=== PATIENT | female | born 1945 | race Caucasian/White ===

== ENCOUNTER 2024-05-29 18:58 | Inpatient (IN) ==
[2024-05-29 19:34] LABS: Basophils # (auto) 0.05 K/uL (0.00-0.20); Basophils % (auto) 0.4 %; Eosinophils # (auto) 0.12 K/uL (0.00-0.50); Hematocrit (blood only) 45.6 % (37.0-47.0); Hemoglobin 15.2 g/dl (12.0-16.0); Immature Granulocytes # (auto) 0.16 K/uL (0.01-0.20); Immature Granulocytes % (auto) 1.4 %; Lymphocytes # (auto) 2.33 K/uL (1.20-3.40); Lymphocytes % (auto) 20.4 %; Mean Corpuscular Hemoglobin 31.1 pg (25.0-34.0); Mean Corpuscular Hgb Conc 33.3 g/dL (32.0-36.0); Mean Corpuscular Volume 93.3 fL (80.0-100.0); Mean Platelet Volume 9.5 fL (9.4-12.4); Monocytes # (auto) 0.87 K/uL (0.11-0.59); Monocytes % (auto) 7.6 %; Neutrophils % (auto) 69.2 %; Platelet Count 262 K/uL (130-400); RDW Coefficient of Variation 12.8 % (11.5-14.5); Red Blood Count 4.89 M/uL (4.20-5.40); White Blood Count 11.43 K/ul (4.8-10.8)
--- NOTE | 2024-05-29 19:40 | Emergency Department Note ---
Impression & Plan Reactive airway disease, Chest pressure ED Provider Note Provider: Luis Antonio Cardoza MD CHIEF COMPLAINT: Cough, shortness of breath, chest pressure HISTORY OF PRESENT ILLNESS: Patient is a 78-year-old female past medical history significant for hypothyroidism and asthma presenting here today from home. Patient states that her and family been sick with cough and cold since . Last week took 20 mg of daily prednisone that she had from old prescription to try to help with her breathing. States that this is continued with some productive cough. No significant nausea vomiting or diarrhea. Reports today around 3 PM was going to lay down and had some indigestion chest discomfort. No radiation to the arms neck jaw or abdomen. Little bit of back discomfort. Some continued chest congestion. Has had some chills no fevers but actually little bit of a low temperature of 94 at home. Patient states she went to urgent care in [place] and was told that she had a junky chest exam and wanted her to be seen so she came here for further evaluation. Did take an antiacid/Maalox earlier without much improvement of her indigestion symptoms. They have moderated since they began. No cardiac history is reported. Distant history of gastric bypass and SBO in the past but denies abdominal bloating at this time. PAST MEDICAL HISTORY: As noted above MEDICATIONS: Reviewed home medications SOCIAL HISTORY: Non-smoker PHYSICAL EXAM: GENERAL: alert and oriented in no acute distress on stretcher Head: normocephalic and atraumatic EYES: No injection, discharge or icterus. PERRL, EOMI. NECK: Trachea midline. Supple. ENT: Mucous membranes pink and moist. LUNGS: Airway patent. No retractions. Breath sounds diffuse expiratory wheeze HEART: Regular rate and rhythm. No chest wall tenderness ABDOMEN: Soft and non-tender, without guarding or rebound. SKIN: Acyanotic, warm, dry, without rashes EXTREMITIES: Without tenderness with 1+ lower extremity edema NEUROLOGICAL: No focal deficits. No aphasia. No facial droop or slurred speech. Ambulatory. EK bpm sinus rhythm with PAC. No significant acute ST segment elevation or depression with T wave flattening laterally. QTc 421. CONTINUOUS CARDIAC MONITORING: was ordered and showed a heart rate of 60s to 80s bpm in normal sinus rhythm 60 bpm sinus rhythm with PAC no acute ST segment elevation with nonspecific T wave flattening QTc 442. Patient's laboratory studies and imaging reviewed. Differential includes Cardiac ischemia, aortic dissection, pulmonary embolism, pneumothorax, pneumonia, bronchitis, URI, pericarditis, myocarditis, esophageal rupture, GERD, cholecystitis, pancreatitis, SBO, musculoskeletal, as well as other pathologies. IMPRESSION/MEDICAL DECISION MAKING: Patient well-appearing in no distress with significantly wheezy lung exam. Not hypoxic here. Not severely tachycardic or hypotensive. Reports some chills but no fever. Has been sick with URI symptoms over the last 2 weeks. Respiratory viral panel was sent. Given some steroids as well as DuoNeb to help with her significant wheezing. Given aspirin as well as Protonix and Pepcid to help protect the stomach as well as again the aspirin for any cardiac component given the indigestion symptoms are minimal at this time. Not having significant EKG changes. Lower suspicion for PE or dissection at this point. Doubt SBO or intra-abdominal blockage or perforation at this time. Do of concerns that she is suffering from possible URI plus or minus reactive airway exacerbation with possibly some anginal or chest pain equivalent. Troponin is sent returns normal here initially 5.1. Bilirubin normal and alkaline phosphatase very slight AST ALT elevation. Not significant tender in the right upper quadrant. Very slight leukocyte 11.4 likely reactive in the setting of her recent steroid usage lower suspicion for sepsis. No significant anemia or thrombocytopenia noted. No evidence of pancreatitis based on labs. Respiratory viral panel negative. On reassessment her breathing has opened up some but still fairly wheezy. Patient with some increase of central chest discomfort. She is already of a quality to it. Given a nitro and repeat EKG obtained without significant findings. Will repeat troponin. Will bring in for further cardiac evaluation as well as treatment of her underlying respiratory complaint. Again doubt this represents PE or dissection. Patient agreeable. Discussed with the hospitalist team. DIAGNOSIS: Chest pressure, reactive airway disease exacerbation/cough DISPOSITION: Hospitalist will evaluate Patient was agreeable with this plan. Past Med/Surg History Problem List (Updated 05/29/24 @ 20:14 by Luis Antonio Cardoza M.D.) Chest pressure (Acute) Reactive airway disease (Acute) Medical History (Updated 05/29/24 @ 20:14 by Luis Antonio Cardoza M.D.) Asthma Surgical History (Updated 08/02/18 @ 14:07 by Darron Lei) History of cardiac catheterization Family History (Updated 08/02/18 @ 14:07 by Darron Lei) Other Family history non-contributory Social History Smoking Status: Never smoker Preferred Language: Upper Sorbian Feels Safe at Home: Yes Allergies Allergies Allergy/AdvReac Type Severity Reaction Status Date / Time acetaminophen Allergy Mild Unverified 08/02/18 10:22 codeine Allergy Mild Unverified 08/02/18 10:22 oxycodone Allergy Mild Unverified 08/02/18 10:22 Penicillins Allergy Mild Unverified 08/02/18 10:22 tetanus toxoid, adsorbed Allergy Mild Unverified 08/02/18 10:22 tramadol Allergy Mild Unverified 08/02/18 10:22 SYMPATHOMIMADR Allergy Mild Uncoded 08/02/18 10:22 Home Meds Home Medications Medication Instructions Recorded Confirmed Calcium Citrate- Vitamind 1 tab PO BID 08/02/18 08/02/18 citalopram 20 mg tablet 20 mg PO DAILY 08/02/18 08/02/18 diphenhydramine HCl 25 mg tablet 25 mg PO Q6H PRN Itching 08/02/18 08/02/18 levothyroxine 88 mcg tablet 88 mcg PO QAM 08/02/18 08/02/18 Previous Rx's Medication Instructions Recorded albuterol sulfate 2.5 mg/3 mL 2.5 mg (3 mL) inhalation Q4 PRN 08/02/18 (0.083 %) solution for nebulization shortness of breath or wheezing #90 mL prednisone 10 mg tablet 10 mg PO DIRECTED #31 tabs 08/02/18 Results & Data (ED) Vital Signs Vital Signs - 24 hr 05/29/24 18:59 05/29/24 18:59 05/29/24 19:01 Temperature 36.6 C Temperature Source Temporal Artery Scan Pulse Rate 78 Pulse Rhythm Regular Pulse Strength Normal Respiratory Rate 18 Respiratory Effort / Characteristics Non-Labored Spontaneous Non-Labored Spontaneous Respiratory Depth Normal Normal Respiratory Pattern Regular Blood Pressure 139/76 Blood Pressure Mean 97 Blood Pressure Position Sitting Pulse Oximetry 96 Oxygen Delivery Method Room Air Room Air Sepsis Recent Fever Within 48 Hours No Sepsis New/Unexplained Change in Mental Status N/A Sepsis Action Taken by Nursing No Action Required 05/29/24 19:03 05/29/24 19:15 Temperature Temperature Source Pulse Rate 65 Pulse Rhythm Pulse Strength Respiratory Rate Respiratory Effort / Characteristics Respiratory Depth Respiratory Pattern Blood Pressure Blood Pressure Mean Blood Pressure Position Pulse Oximetry 98 Oxygen Delivery Method Room Air Sepsis Recent Fever Within 48 Hours Sepsis New/Unexplained Change in Mental Status Sepsis Action Taken by Nursing Laboratory Data 05/29/24 19:15 05/29/24 19:15 Lab Results 05/29/24 Range/Units 19:15 WBC 11.43 H (4.8-10.8) K/ul RBC 4.89 (4.20-5.40) M/uL Hgb 15.2 (12.0-16.0) g/dl Hct 45.6 (37.0-47.0) % MCV 93.3 (80.0-100.0) fL MCH 31.1 (25.0-34.0) pg MCHC 33.3 (32.0-36.0) g/dL RDW Std Deviation 44.0 (36.4-46.3) fL RDW Coeff of Clyde 12.8 (11.5-14.5) % Plt Count 262 (130-400) K/uL MPV 9.5 (9.4-12.4) fL Immature Gran % (Auto) 1.4 % Neut % (Auto) 69.2 % Lymph % (Auto) 20.4 % Greenlee % (Auto) 7.6 % Eos % (Auto) 1.0 % Baso % (Auto) 0.4 % Neut # (Auto) 7.90 H (1.40-6.50) K/uL Lymph # (Auto) 2.33 (1.20-3.40) K/uL Greenlee # (Auto) 0.87 H (0.11-0.59) K/uL Eos # (Auto) 0.12 (0.00-0.50) K/uL Baso # (Auto) 0.05 (0.00-0.20) K/uL Immature Gran # (Auto) 0.16 (0.01-0.20) K/uL PT 10.3 (9.0-12.0) Seconds INR 0.9 (0.9-1.1) APTT 23 (21-31) Seconds PTT Ratio 0.9 Sodium 135 L (136-145) mmol/L Potassium 4.6 (3.5-5.1) mmol/L Chloride 101 (98-107) mmol/L Carbon Dioxide 27 (21-32) mmol/L Anion Gap 7 (3-11) BUN 26 H (6-23) mg/dl Creatinine 1.20 (0.6-1.2) mg/dl Est Cr Clr Drug Dosing 46.8 ml/min eGFR 46.62 BUN/Creatinine Ratio 21.7 H (10-20) Glucose 100 H (70-99(Fasting)) mg/dl Calcium 9.7 (8.6-10.3) mg/dl Total Bilirubin 0.6 (0.2-1.0) mg/dl AST 132 H (13-39) U/L ALT 63 H (7-52) U/L Alkaline Phosphatase 88 (34-104) U/L Troponin I High Sens 5.1 (0-14) pg/ml Total Protein 7.6 (6.0-8.3) gm/dl Albumin 4.3 (3.4-5.0) gm/dl Globulin 3.3 (2.5-4.0) gm/dl Albumin/Globulin Ratio 1.3 (0.9-2) Lipase 48 (11-82) U/L Adenovirus (PCR) Not Detected (NotDetected) B. pertussis DNA (PCR) Not Detected (NotDetected) B.parapertussis DNA PCR Not Detected (NotDetected) C. pneumoniae DNA (PCR) Not Detected (NotDetected) Coronavirus OC43 (PCR) Not Detected (NotDetected) Coronavirus HKU1 (PCR) Not Detected (NotDetected) Coronavirus 229E (PCR) Not Detected (NotDetected) SARS-CoV-2 (PCR) Not Detected (NotDetected) Coronavirus NL63 (PCR) Not Detected (NotDetected) Human Metapneumovir PCR Not Detected (NotDetected) Influenza Type A (PCR) Not Detected (NotDetected) Influenza Type B (PCR) Not Detected (NotDetected) M. pneumoniae (PCR) Not Detected (NotDetected) Parainfluenza 1 (PCR) Not Detected (NotDetected) Parainfluenza 2 (PCR) Not Detected (NotDetected) Parainfluenza 3 (PCR) Not Detected (NotDetected) Parainfluenza 4 (PCR) Not Detected (NotDetected) RSV (PCR) Not Detected (NotDetected) Entero/Rhino (PCR) Not Detected (NotDetected) Administered Medications Discontinued Medications Albuterol (Albut/Ipratrop 3mg/0.5mg Neb 3 Ml Vial) 12 ml NEB ONE ONE; Protocol Stop: 05/29/24 19:28 Last Admin: 05/29/24 19:47 Dose: 12 ml Documented By: SHONDA Aspirin (Aspirin Chew 324 Mg) 324 mg PO NOW STA Stop: 05/29/24 19:29 Last Admin: 05/29/24 19:46 Dose: 324 mg Documented By: SHONDA Pantoprazole Sodium (Protonix) 40 mg in 10 mls @ 5 mls/min IV NOW ONE Stop: 05/29/24 19:28 Last Admin: 05/29/24 19:46 Dose: 5 mls/min Documented By: SHONDA Famotidine (Pepcid 20mg Iv Push) 20 mg in 5 mls @ 2.5 mls/min IV NOW STA Stop: 05/29/24 19:29 Last Admin: 05/29/24 19:46 Dose: 2.5 mls/min Documented By: SHONDA Methylprednisolone (Methylprednisolone 125 Mg/2 Ml Vial) 60 mg IV NOW STA Stop: 05/29/24 19:28 Last Admin: 05/29/24 19:46 Dose: 60 mg Documented By: SHONDA Nitroglycerin (Nitroglycerin Sl 0.4 Mg/Tab Tab) 0.4 mg SL NOW STA Stop: 05/29/24 20:19 Last Admin: 05/29/24 20:29 Dose: 0.4 mg Documented By: SHONDA Imaging Data Radiologist's Impression: Chest X-Ray 05/29/24 19:03 Exam(s): XR CXR 1 VIEW EXAM: XR Chest, 1 View CLINICAL HISTORY: Reason for exam: Chest pain, nonspecific. TECHNIQUE: Frontal view of the chest. COMPARISON: No relevant prior studies available. FINDINGS: Lungs: Mild soft tissue artifact over the mid to lower lungs. No focal infiltrate or consolidation is identified. Pleural space: Unremarkable. No pneumothorax. Heart: Unremarkable. No cardiomegaly. Mediastinum: Unremarkable. Normal mediastinal contour. Bones/joints: Mild degenerative changes in the lower thoracic spine. No acute fracture. Upper abdomen: There is no pneumoperitoneum under the diaphragm. IMPRESSION: Mild soft tissue artifact over the mid to lower lungs. No focal infiltrate or consolidation is identified. Electronically signed by: Luis Antonio Burger MD 05/29/24 20:27 PM Discharge Plan Visit Data Chief Complaint: Chest Pain Stated Complaint: CHEST PAIN, BACK PAIN, SOB, ASTHMA, ED Provider: Luis Antonio Cardoza Discharge Problem: Reactive airway disease, Chest pressure Patient Disposition: Being Evaluated by Hospitalist Forms Stand Alone Forms: [facility] Prescriptions Prescriptions: No Action levothyroxine 88 mcg tablet 88 mcg PO QAM citalopram 20 mg tablet 20 mg PO DAILY diphenhydramine HCl 25 mg Tablet 25 mg PO Q6H PRN (Reason: Itching) Calcium Citrate- Vitamind 1 tab PO BID Patient Comments: Calcium Citrate- Vitamin D 500-400 mg-unit Chew prednisone 10 mg tablet 10 mg PO DIRECTED Qty: 31 0RF Rx Instructions: 40 mg for 4 days, 30 mg for 3 days, 20 mg for 2 days, 10 mg for 2 days albuterol sulfate 2.5 mg /3 mL (0.083 %) solution for nebulization 2.5 mg INH Q4 PRN (Reason: shortness of breath or wheezing) Qty: 90 0RF Referrals Referrals: Chantel Girard DO [Primary Care Provider] - Discharge Problem: Reactive airway disease Qualifiers: Asthma severity: moderate Asthma complication type: with acute exacerbation
[2024-05-29] MEDS: ASPIRIN CHEW 324 MG PO STA (19:46)
[2024-05-29] MEDS: PANTOprazole 40 MG/10 ML SYR IV ONE (19:46)
[2024-05-29] MEDS: FAMOTIDINE 20MG IV PUSH 20 MG/5 ML SYR IV STA (19:46)
[2024-05-29] MEDS: methylPREDNISolone 125 MG/2 ML VIAL IV STA (19:46)
[2024-05-29] MEDS: ALBUT/IPRATROP 3MG/0.5MG NEB 3 ML VIAL NEB ONE (19:47)
[2024-05-29 19:49] LABS: Albumin Globulin Ratio 1.3 (0.9-2); Albumin Level 4.3 gm/dl (3.4-5.0); BUN Creatinine Ratio 21.7 (10-20); Bilirubin,Total 0.6 mg/dl (0.2-1.0); Calcium 9.7 mg/dl (8.6-10.3); Creatinine Clr Calc Pharmacy 46.8 ml/min; Globulin 3.3 gm/dl (2.5-4.0); Potassium 4.6 mmol/L (3.5-5.1); Total Protein 7.6 gm/dl (6.0-8.3)
[2024-05-29 19:55] LABS: Troponin I High Sensitivity 5.1 pg/ml (0-14)
[2024-05-29 20:05] LABS: INR 0.9 (0.9-1.1); Partial Thromboplastin Ratio 0.9; Partial Thromboplastin Time 23 Seconds (21-31); Prothrombin Time 10.3 Seconds (9.0-12.0)
[2024-05-29 20:19] LABS: Adenovirus PCR Not Detected (NotDetected); Bordetella parapertussis PCR Not Detected (NotDetected); Bordetella pertussis PCR Not Detected (NotDetected); Chlamydia pneumoniae PCR Not Detected (NotDetected); Coronavirus 229E PCR Not Detected (NotDetected); Coronavirus CoV-2 (COVID19)PCR Not Detected (NotDetected); Coronavirus HKU1 PCR Not Detected (NotDetected); Coronavirus NL63 PCR Not Detected (NotDetected); Coronavirus OC43PCR Not Detected (NotDetected); Human Metapneumovirus PCR Not Detected (NotDetected); Influenza A PCR Not Detected (NotDetected); Influenza B PCR Not Detected (NotDetected); Mycoplasma pneumoniae PCR Not Detected (NotDetected); Parainfluenza Virus 1 PCR Not Detected (NotDetected); Parainfluenza Virus 2 PCR Not Detected (NotDetected); Parainfluenza Virus 3 PCR Not Detected (NotDetected); Parainfluenza Virus 4 PCR Not Detected (NotDetected); Respiratory Syncytial VirusPCR Not Detected (NotDetected); Rhinovirus/Enterovirus PCR Not Detected (NotDetected)
--- NOTE | 2024-05-29 20:27 | XRay Report ---
Exam(s): XR CXR 1 VIEW EXAM: XR Chest, 1 View CLINICAL HISTORY: Reason for exam: Chest pain, nonspecific. TECHNIQUE: Frontal view of the chest. COMPARISON: No relevant prior studies available. FINDINGS: Lungs: Mild soft tissue artifact over the mid to lower lungs. No focal infiltrate or consolidation is identified. Pleural space: Unremarkable. No pneumothorax. Heart: Unremarkable. No cardiomegaly. Mediastinum: Unremarkable. Normal mediastinal contour. Bones/joints: Mild degenerative changes in the lower thoracic spine. No acute fracture. Upper abdomen: There is no pneumoperitoneum under the diaphragm. IMPRESSION: Mild soft tissue artifact over the mid to lower lungs. No focal infiltrate or consolidation is identified. Electronically signed by: Luis Antonio Burger MD 05/29/24 20:27 PM
[2024-05-29] MEDS: NITROGLYCERIN SL 0.4 MG/TAB TAB SL STA (20:29)
--- NOTE | 2024-05-29 21:15 | History & Physical Report ---
Date of Service May 29, 2024 Assessment & Plan (1) Exacerbation of asthma: Plan: History of asthma controlled with occasional nebs at home and also inhalers She has been complaining of shortness of breath with wheezing and cough since 14 May Tried self administered 5 days course of 20 mg prednisone and finished last Sunday without any improvement Continues to have wheezing and cough but no fever and no chills BioFire has been negative Started on intravenous Solu-Medrol, nebulized bronchodilator and Advair has been added to her regimen She will will not need any antibiotic if there is no evidence of acute bronchitis and no pneumonia Expected to improve with day or 2 Chest Pain Doubt Cardiac Received 4 baby Aspirin EKG x 2 and troponin have been negative Doubt any ACS but should be monitored and another set of troponin will be done First troponin was 5.1 and second troponin is pending and expected to be normal (2) Asthma: Plan: As above (3) Hypothyroidism: Plan: Continue supplement (4) PUD (peptic ulcer disease): Plan: Presented with epigastric pain/chest tightness and Chest pain-doubt any cardiac origin History of gastric bypass and the symptoms seems to be secondary to peptic ulcer disease No evidence of pancreatitis Started with Protonix 40 mg twice daily (5) H/O gastric bypass: Plan: No acute symptoms DVT prophylaxis Subcu heparin CODE STATUS Full History of Present Illness Chief Complaint: Progressive shortness of breath, chest pains/pressure with radiation to back since this afternoon Primary Care Provider: Chantel Girard DO She is a 78-year-old female with significant past medical history of asthma, hypothyroidism and remote history of gastric bypass apparently has been suffering from cough with occasional shortness of breath since . Her cough and wheezing was not getting any better and she took prednisone 20 mg daily for 5 days of her own without much improvement. She finished her prednisone last Sunday. Today after lunch she got some epigastric pain that went to the back and was not relieved with antacid. She did have some sweating but no radiation of pain, no palpitation, no shortness of breath more than usual from asthma and did not have any dizziness and/or numbness or tingling involving the extremities. She went to the urgent care in [place] and from there she was sent into the hospital for ongoing management. Allergies Allergy/AdvReac Type Severity Reaction Status Date / Time acetaminophen Allergy Mild Unverified 08/02/18 10:22 codeine Allergy Mild Unverified 08/02/18 10:22 oxycodone Allergy Mild Unverified 08/02/18 10:22 Penicillins Allergy Mild Unverified 08/02/18 10:22 tetanus toxoid, adsorbed Allergy Mild Unverified 08/02/18 10:22 tramadol Allergy Mild Unverified 08/02/18 10:22 SYMPATHOMIMADR Allergy Mild Uncoded 08/02/18 10:22 Home Medications Medication Instructions Recorded Confirmed Type Calcium Citrate- Vitamind 1 tab PO BID 08/02/18 08/02/18 History albuterol sulfate 2.5 mg/3 mL 2.5 mg (3 mL) inhalation Q4 PRN 08/02/18 Rx (0.083 %) solution for nebulization shortness of breath or wheezing #90 mL citalopram 20 mg tablet 20 mg PO DAILY 08/02/18 08/02/18 History diphenhydramine HCl 25 mg tablet 25 mg PO Q6H PRN Itching 08/02/18 08/02/18 History levothyroxine 88 mcg tablet 88 mcg PO QAM 08/02/18 08/02/18 History prednisone 10 mg tablet 10 mg PO DIRECTED #31 tabs 08/02/18 Rx Past Med/Surg History Problem List (Updated 05/29/24 @ 21:13 by Toña Adair MD) H/O gastric bypass PUD (peptic ulcer disease) Hypothyroidism Exacerbation of asthma Chest pressure (Acute) Reactive airway disease (Acute) Medical History (Updated 05/29/24 @ 21:13 by Toña Adair MD) Asthma Surgical History (Updated 05/29/24 @ 21:13 by Toña Adair MD) History of cardiac catheterization Family History (Updated 08/02/18 @ 14:07 by Darron Lei) Other Family history non-contributory Social History Smoking Status: Never smoker Preferred Language: Kiswahili Feels Safe at Home: Yes Review of Systems Review of Systems: All systems reviewed and are unremarkable except as noted below Physical Exam Physical Exam: Lying in bed with minimal shortness of breath Constitutional: well developed, well nourished and + ill appearing Eyes: PERRL, conjunctivae normal, anicteric sclerae ENMT: external ear and nose normal, oropharynx normal Neck: trachea midline, no thyromegaly Respiratory: no respiratory distress Auscultation: + diminished lung sounds and + wheezes (Occasional wheezing bilaterally) Cardiovascular: Rate/Rhythm: regular rate and regular rhythm; not tachycardic Heart Sounds: normal S1 and normal S2; no murmur Extremities: no edema Gastrointestinal (Abdomen): Inspection/Auscultation: normal bowel sounds; abdomen not distended Percussion/Palpation: + abdomen tender (Minimal tenderness in the epigastrium) and abdomen soft Musculoskeletal: No acute arthritis involving any of the joint Neurologic: normal touch/pain/proprioception and moves all extremities; no focal motor deficits Psychiatric: A+Ox3, euthymic affect Lymphatic: no cervical or axillary lymphadenopathy Results & Data Results & Data Vital Signs (Past 12 Hours) Vital Signs Temp Pulse Resp BP Pulse Ox O2 Del Method 05/29/24 19:15 65 05/29/24 19:03 98 Room Air 05/29/24 19:01 36.6 C 78 18 139/76 96 Room Air 05/29/24 18:59 Room Air Laboratory Results Short CBC 05/29/24 Range/Units 19:15 WBC 11.43 H (4.8-10.8) K/ul Hgb 15.2 (12.0-16.0) g/dl Hct 45.6 (37.0-47.0) % Plt Count 262 (130-400) K/uL BMP 05/29/24 19:15 Sodium 135 L Potassium 4.6 Chloride 101 Carbon Dioxide 27 BUN 26 H Creatinine 1.20 Glucose 100 H Calcium 9.7 Liver Function 05/29/24 Range/Units 19:15 Total Bilirubin 0.6 (0.2-1.0) mg/dl AST 132 H (13-39) U/L ALT 63 H (7-52) U/L Alkaline Phosphatase 88 (34-104) U/L Albumin 4.3 (3.4-5.0) gm/dl Medications Administered Current Inpatient Medications Heparin Sodium (Porcine) (Heparin Sod 5,000 Unit/0.5 Ml Vial) 5,000 units SQ Q12 DANGELO Stop: 06/29/24 08:59 Fluticasone/Salmeterol (Fluticasone/Salmeterol 250/50 (Advair) 14 Puff/1 Inhaler) 1 puffs INH BID DANGELO Stop: 06/28/24 20:59 Code Status & VTE Plan VTE Prophylaxis Plan VTE Prophylaxis will be ordered: Yes
[2024-05-29] MEDS ORDERED: methylPREDNISolone 125 MG/2 ML VIAL IV SCH (21:56)
[2024-05-29] MEDS: CALCIUM 600MG + VIT D 400 IU TAB PO SCH (23:21)
[2024-05-29] MEDS: ALBUTEROL 0.083% NEBU SOLN 3 ML VIAL INH SCH (23:36)
[2024-05-30 04:33] LABS: Basophils # (auto) 0.02 K/uL (0.00-0.20); Basophils % (auto) 0.2 %; Hematocrit (blood only) 43.1 % (37.0-47.0); Hemoglobin 14.4 g/dl (12.0-16.0); Immature Granulocytes # (auto) 0.16 K/uL (0.01-0.20); Immature Granulocytes % (auto) 1.7 %; Lymphocytes # (auto) 0.72 K/uL (1.20-3.40); Lymphocytes % (auto) 7.8 %; Mean Corpuscular Hemoglobin 31.4 pg (25.0-34.0); Mean Corpuscular Hgb Conc 33.4 g/dL (32.0-36.0); Mean Corpuscular Volume 94.1 fL (80.0-100.0); Mean Platelet Volume 9.9 fL (9.4-12.4); Monocytes # (auto) 0.15 K/uL (0.11-0.59); Monocytes % (auto) 1.6 %; Neutrophils # (auto) 8.24 K/uL (1.40-6.50); Neutrophils % (auto) 88.7 %; Platelet Count 249 K/uL (130-400); RDW Coefficient of Variation 12.7 % (11.5-14.5); RDW Standard Deviation 43.7 fL (36.4-46.3); Red Blood Count 4.58 M/uL (4.20-5.40); White Blood Count 9.29 K/ul (4.8-10.8)
[2024-05-30 04:50] LABS: BUN Creatinine Ratio 26.5 (10-20); Calcium 9.3 mg/dl (8.6-10.3); Magnesium 2.1 mg/dl (1.7-2.4); Potassium 4.8 mmol/L (3.5-5.1)
[2024-05-30] MEDS: PANTOprazole 40 MG TAB PO SCH (06:53)
[2024-05-30] MEDS: CITALOPRAM 20 MG TAB PO SCH (06:53)
[2024-05-30] MEDS: LEVOTHYROXINE SODIUM 88 MCG TABLET PO SCH (06:53)
[2024-05-30] MEDS: methylPREDNISolone 60 MG in SYRINGE 0 ML IV SCH (06:54)
--- OUTSIDE RECORDS SUMMARY | 2024-05-30 07:00 | External Medical Summary ---
Author Name Unknown Address Unknown Organization [id number]:[facility] [place] - [address] [place] [address] Laboratory Report Ordering Provider Test Date Status VAL STEPHENSON 05/22/2024 11:49:14 Final Observation Date Value Abnormality Reference (Units ) Status WBC, Total 05/22/2024 11:49:14 7.30 4.00-10.80 (K/uL) Final RBC 05/22/2024 11:49:14 4.42 3.85-5.15 (M/uL) Final Hemoglobin 05/22/2024 11:49:14 14.2 12.0-15.3 (g/dL) Final HCT 05/22/2024 11:49:14 43.4 36.0-45.2 (%) Final MCV 05/22/2024 11:49:14 98.2 81.5-97.5 (fL) Final MCH 05/22/2024 11:49:14 32.1 27.0-34.0 (pg) Final MCHC 05/22/2024 11:49:14 32.7 32.0-36.0 (g/dL) Final RDW 05/22/2024 11:49:14 13.0 11.5-15.5 (%) Final Platelets 05/22/2024 11:49:14 179 140-400 (K/uL) Final MPV 05/22/2024 11:49:14 10.3 6.6-11.1 (fL) Final Nucleated erythrocytes/100 leukocytes [Ratio] in Blood by Automated count 05/22/2024 11:49:14 0 <=0 (/100 WBCs) Final Performing Location [facility] [place] [facility] [address] [place] [place] [id number]
--- OUTSIDE RECORDS SUMMARY | 2024-05-30 07:00 | External Medical Summary | Summary of Care ---
Author Name Unknown Organization [facility] Address [address] [place] [address] Phone [phone] Care Team Providers Care Bell Clerk Name Role Phone Chantel Girard Primary Care Provider [phone] Reason for Visit * Reason Comments Outpatient Testing Encounter Details Date Type Department Care Team (Late st Contact Info) Description 05/22/2024 11:50 AM EST Laboratory Laboratory [address] [place] [phone] [place] [address] HTN, goal below 130/80; Acquired hypothyroidism; Intestinal postoperative nonabsorption Allergies Active Allergy Reactions Criticality Noted Date Comments Amoxicillin 09/26/2000 hives Gentamicin Sulfate Other (Please comment) High 12/29/2008 Itchy eyes Morphine And Codeine 11/10/1999 hydrocodone,itching Percocet 10/03/2002 Itch Tetanus Toxoid 09/25/2002 arm swollen,painful,fing ers numb Tramadol Hcl 09/26/2000 hives documented as of this encounter (statuses as of 05/22/2024) Medications Multiple Vitamins-Minerals (MULTIVITAMIN ADULT) CHEW Take by mouth. Act zaria Calcium Carbonate-Vitamin D 500-125 MG-UNIT Oral Tablet Take by mouth. Act zaria Tiotropium [place] Monohydrate 18 MCG Inhalation Capsule (Spiriva HandiHaler)Indicat ions:Asthma, moderate persistent INHALE THE CONTENTS OF 1 CAPSULE VIA HANDIHALER ONCE A DAY (DO NOT SWALLOW CAPSULE) 90 Capsule 1 01/28/2024 3:15 PM EDT 4 025 Active Fluticasone-Salmet mari 250-50 MCG/ACT Inhalation Aerosol Powder Breath Activated (Advair Diskus) INHALE ONE PUFF BY MOUTH EVERY MORNING & ONE PUFF BEFORE BEDTIME 180 Each 1 02/21/2024 7:40 AM EDT 4 Active Alendronate Sodium 70 MG Oral Tablet (Fosamax) Take 1 Tablet by mouth once a week. with 8 oz. water 30 minutes before first meal of the day. Remain upright for 30 min after taking tablet. 12 Tablet 3 04/08/2024 9:10 AM EST 4 Active Citalopram Hydrobromide 20 MG Oral Tablet (CeleXA)Indication s:Depression with anxiety Take 1 Tablet by mouth in the morning. 100 Tablet 3 05/20/2024 9:26 AM EST 4 Active Levothyroxine Sodium 88 MCG Oral Tablet (Levoxyl)Indicatio ns:Acquired hypothyroidism Take 1 Tablet by mouth daily first thing in the morning. 100 Tablet 3 05/20/2024 9:26 AM EST 4 Active Losartan Potassium 50 MG Oral Tablet (Cozaar)Indication s:HTN, goal below 130/80 Take 1 Tablet by mouth in the morning. 100 Tablet 3 04/02/2024 9:15 AM EST 4 Active Spironolactone 25 MG Oral Tablet (Aldactone) Take 1 Tablet by mouth in the morning. 100 Tablet 3 05/19/2024 3:14 PM EST 4 Active Diclofenac Sodium 1 % External Gel (Voltaren)Indicati ons:Pain in both feet,Right wrist pain Apply topically to affected area 2 times a day. Apply to right wrist and feet twice daily as needed. 100 g 1 4 Active Zoster Vac Recomb Adjuvanted 50 MCG/0.5ML Intramuscular Suspension Reconstituted (Shingrix) Inject 0.5 mL into a large muscle in 2 months. Do not start before June 11, 2024. 1 Each Active Hospital, Clinic, or Other Facility Administered Medication Ordered Dose Route Frequency Start Date End Date Status albuterol sulfate (PROVENTIL) (2.5 MG/3ML) 0.083% inhalation solution 2.5 mgIndications:COPD, moderate (HCC) 2.5 mg NEBULIZER Q4H PRN 04/19/2017 Active vitamin b-12 (Cyanocobalamin) inj 1,000 mcgIndications:S/P gastric bypass 1000 mcg IM [id number] 05/11/2022 02/12/2025 Active documented as of this encounter (statuses as of 05/22/2024) Active Problems Problem Noted Date Diagnosed Date Major depressive disorder, s darren episode, in full remission 04/15/2024 Primary osteoarthritis of both knees 09/05/2023 Osteoporosis 06/22/2023 Overview (06/22/2023): Patient did start fosamax recently HTN, goal below 130/80 08/17/2022 Obstructive sleep apnea of adult 08/15/2020 History of adenomatous polyp of colon 08/02/2018 History of paroxysmal atrial tachycardia 018 Arthritis of right acromioclavicular joint 04/11 S/P gastric bypass 04/11/2017 Depression with anxiety 03/04/2015 Asthma, moderate persistent 05/27/2013 Umbilical hernia 10/22/2012 Vitamin B deficiency 12/29/2008 Intestinal postoperative nonabsorption 7 BLACKMAN RESEARCH OTHER*[id number] 10/29/2006 Acquired hypothyroidism 01/19/2004 GENERAL OSTEOARTHROSIS Vitamin D deficiency Ventral hernia without obstruction or gangrene documented as of this encounter (statuses as of 05/22/2024) Resolved Problems Problem Noted Date Diagnosed Date Resolved Date Migraine with aura and witho ut status migrainosus, not intractable 08/17/2022 09/05/2023 Food insecurity 07/03/2022 03/01/2023 Overview: Per [facility] Protocol Food insecurity 12/27/2020 02/01/2021 Overview: Per [facility] Protocol Abnormal CT of the chest 08/15/2020 Pleural effusion 08/15/2020 02/17/2022 SVT (supraventricular tachycardia) 05/05/2019 02/17/2022 Obesity, morbid (more than 1 00 lbs over ideal weight or BMI > 40) 03/26/2019 06/05/2019 BMI 40.0-44.9, adult 03/26/2019 022 Primary osteoarthritis of right knee 10/09/2018 09/05/2023 Asthma in remission 10/09/2017 08/10/19 19 Coronary artery disease invo lving [place] coronary artery of [place] heart without angina pectoris 10/09/2017 08/09/2018 CKD (chronic kidney disease), stage III 08/15/2017 08/31/2017 Overview (08/22/2017): GFR 52.2 Dyslipidemia, goal to be determined 12/20/2016 04/11/2017 Hyperlipidemia LDL goal <100 12/20/2016 02/20/2023 Essential hypertension with goal blood pressure less than 140/90 03/13/2016 04/11/2017 Allergic rhinitis due to pollen 09/09/2015 04/11/2017 Severe obesity with body mas s index (BMI) of 35.0 to 39.9 with serious comorbidity 03/04/2015 Overview (03/06/2018): ICD-10 update of inactive diagnosis Asthma, moderate persistent 05/27/2013 04/11/2017 Muscle cramp, nocturnal 12/24/201203/22 Small bowel obstruction 03/06/201210/2011 Thoracic degenerative disc disease 02/29/2012 04/11/2017 Major depressive disorder 07/11/2011 Overview (03/13/2017): ICD-10 update of inactive term Leg cramps, sleep related 11/01/2010 COPD, MODERATE 06/08/2010 10/09/2017 Overview (05/18/2011): Per COPD Protocol #24. COPD W BRONCHITIS,EMPHYSEMATOS Last PFT - 2010-05-27 Degeneration of lumbosacral intervertebral disc 06/29/2009 04/11/2017 HTN, goal below 140/90 03/26/200903/13 Overview (03/26/2009): Modified per HTN Taxonomy. Gouty arthropathy 03/04/2009 04/11/2017 Overview (02/20/2022): ICD-9 Code Update ICD-10 update of inactive term Type 2 diabetes mellitus wit h hemoglobin A1c goal of less than 7.0% 01/28/2008 06/30/2008 Overview (09/14/2015): ICD-10 update of inactive term CKD (chronic kidney disease), stage II 08/26/2007 03/26/2019 Overview (08/26/2007): Added per CKD clinical protocol 1 Hypothyroidism 04/26/2007 2007 Localized, primary osteoarth ritis of ankle or foot 11/29/2006 09/04/2007 Paroxysmal atrial tachycardia 11/15/2005 10/09/2017 ADVANCE DIRECTIVE INFORMATION 05/17/2005 04/11/2017 Overview (05/17/2005): No, Advance Directive brochure given to patient at prior appointment. Slow transit constipation 05/17/2005 Morbid obesity, BMI not known 08/12/2004 01/28/2008 BLACKMAN (nonalcoholic steatohepatitis) 02/29/2004 04/25/2018 Major depressive disorder, r ecurrent severe without psychotic features 02/29/2004 07/11/2011 Mixed dyslipidemia 01/19/2004 9 12/09/2003 10/09/2017 Carpal tunnel syndrome 03/03/200304/11 Cervical spondylosis 09/25/2002 008 CERVICAL DISC DEGEN 09/25/2002 04/11/20 17 Gouty arthropathy 10/02/2001 03/04/2009 Overview (08/24/2015): ICD-9 Code Update ICD-10 update of inactive term Thoracic and lumbosacral neuritis 12/04/2000 2007 Goiter 04/11/2017 EXT ASTHMA W-O STAT ASTH 10/2013 BENIGN HYPERTENSION 03/26/20 09 Overview (03/26/2009): Modified per HTN Taxonomy. Peptic ulcer 2007 GOUT W MANIFESTATION NEC ABN LIVER FUNCTION STUDY BURSITIS NEC 2007 ABN BLOOD CHEMISTRY NEC 07/20 DM type 2, not at goal 01/27 Metabolic syndrome 9 Adenomatous polyp of colon 0 08/02/2018 Chronic bronchitis, obstructive 05/18/2011 Overview (06/08/2010): COPD W BRONCHITIS,EMPHYSEMATOS Tubular adenoma of colon Benign hypertension with CKD (chronic kidney disease) stage III 04/25/2018 documented as of this encounter (statuses as of 05/22/2024) Immunizations Name Administration Dates Next Due COVID-19 mRNA, LNP-s, No Pre serve, 2-Dose Series (Moderna) 11/03/2020,10/05/2020 COVID-19, mRNA, LNP-s, PF, B ooster, 100mcg/0.5mg (Moderna) 06/14/2021 Covid-19, Mrna, Lnp-s, Pf, B ivalent, 30 Mcg, IM, 12 yrs and above (EmboMedics) 05/16/2022 Pneumococcal Conjugate Vacc, 13 Valent (Prevnar) 08/19/2014 Pneumococcal Polysaccharide PPV23 (Pneumovax) 02/07/2012,02/14/2006 RSV Vac., Recomb, Adjuvant, PF,0.5 Ml (Arexvy) 04/11/2024 Season Influenza, Quad, PF, Adjuvanted, 65+ Yrs, IM (FLUAD) 02/02/2020 Seasonal Influenza Vac., MDV , IM, 0.5 mL (Fluzone) 03/04/2013,02/07/2012,02/06/2011,03/21,02/24/2009,04/02/2008,04/02/2007 ,05/16/2006 Seasonal Influenza Virus Vac cine, Unspecified Formulation 01/21/2020 Seasonal Influenza, High Dos e, Trivalent, PF, IM (Fluzone HD) 02/14/2024 Seasonal Influenza, PF, 6 M & above, IM , (FluLaval or Fluzone) 02/15/2018,03/02/2017 Seasonal Influenza, Quadriva lent Hd (Fluzone Hd) 02/20/2023,02/17/2022,02/01/2021 Seasonal Influenza, Quadriva lent, No Preserve, IM 02/09/2016,03/04/2015 Seasonal Influenza, Trivalen t, Adjuvanted, 65+ YRS, PF, (Fluad) 02/21/2019 TD - Tetanus/Diptheria (ADULT) 09/25/2002 Zoster Vaccine Recombinant (Shingrix) 04/11/2024 documented as of this encounter Social History Tobacco Use Types Packs/Day Years Used Date Smoking Tobacco: Former Cigarettes 0.3 0.5 0 11/1968 - 1969 Smokeless Tobacco: Never Comments:No regular use trie d as a kid Alcohol Use Standard Drinks/Week Comments Not Currently 0 (1 standard drink = 0.6 oz pure alcohol) quit 1988 - years of abuse RARE USE AT THIS TIME PHQ-2 Answer Date Recorded PHQ Adult Total Score 0 06/21/2023 Hunger Vital Sign Answer Date Recorded Within the past 12 months, y ou worried that your food would run out before you got the money to buy more. Never true 08/22/19 24 Within the past 12 months, t he food you bought just didn't last and you didn't have money to get more. Never true 08/22/2023 Childcare Answer Date Recorded Do you feel overwhelmed with taking care of a child, family member or friend? No 08/22/2023 Does your family need help f inding childcare? (Household - for ages 0-17 years) Not on file 08/22/2023 Clothing Answer Date Recorded Have you been unable to get clothing when it was really needed? No 08/22/2023 Is your family able to get c lothes or diapers when needed? (Household - for ages 0-17 years) Not on file 08/22/2023 Personal Safety Answer Date Recorded Do you feel unsafe or have concerns for your saf ety? No 08/22/2023 Do you have concerns for you r family's safety? (Household - for ages 0-17 years) Not on file 08/22/2023 Utilities Answer Date Recorded Do you have trouble paying y our heating, water, or electric bill? No 08/22/2023 Is your family able to pay t he heat, water, or electric bill? (Household - for ages 0-17 years) Not on file 08/22/2023 Does your family have access to good internet? (Household - for ages 0-17 years) Not on file 08/22/2023 Employment Status Answer Date Recorded Are you unemployed or without regular income? No 08/22/2023 Does the household have a re gular source of income? (Household - for ages 0-17 years) Not on file 08/22/2023 Social Connections Answer Date Recorded How often do you feel lonely or isolated from th ose around you? Never 08/22/2023 Financial Resource Strain Answer Date R ecorded Do you have any trouble payi ng for your medications, or do you think you might in the future? No 08/22/2023 Does your family have troubl e paying for medicine? (Household - for ages 0-17 years) Not on file 08/22/2023 Transportation Needs Answer Date Record ed READ ONLY Do you have troubl e getting a ride to medical visits or work? Never True 08/22/2023 Does your family have a hard time getting a ride to doctors visits? (Household - for ages 0-17 years) Not on file 08/22/2023 Has lack of transportation k ept you from medical appointments, meetings, work, or from getting things needed for daily living? Check all that apply. (Adult - for ages 18 years and over) Not on file 08/22/2023 Do you (or your family) have trouble finding or paying for a ride (transportation)? (Household - for ages 0-17 years) Not on file 08/22/2023 Housing Stability Answer Date Recorded Do you currently live in a s helter or have no steady place to sleep at night? No 08/22/2023 READ ONLY Do you think you a re at risk of becoming homeless? No 08/22/2023 Does your family worry about paying for your home or becoming homeless? (Household - for ages 0-17 years) Not on file 0 08/22/2023 Are you homeless or worried that you might be in the future? (Adult - for ages 18 years and over) Not on file 04/03/202 4 Are you (or your family) puneet eless or worried that you might be in the future? (Household - for ages 0-17 years) Not on file Food Insecurity Answer Date Recorded Do you need food for this week? No 08/22/2023 Are you able to get enough f ood for your family? (Household - for ages 0-17 years) Not on file 08/22/2023 Does your family need food t his week? (Household - for ages 0-17 years) Not on file 08/22/2023 Do you always have enough fo od for your family? 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 Not on file Not on file documented as of this encounter Plan of Treatment Upcoming Encounters Date Type Department Care Team (Late st Contact Info) Description 06/24/2024 1:00 PM EST Nurse Only Ancillary [address] [place] [id number] [place], Nurse Annual Wellness [address] [place] [address] [place] [id number] 10/14/2024 1:00 PM EDT Office Visit Family [address] [place] [phone] Toribio Tovar CRNP [address] [place] [address] [place] [phone] 04/15/2025 1:50 PM EST [address] [phone] Chantel Girard [address] [place] [address] Pending Results Name Type Priority Associated Diagnoses Date /Time BASIC METABOLIC PANEL Lab Routine HTN, goal below 130/80 05/22/2024 11:49 AM EST TSH Lab Routine Acquired hypothyroidism 05/22/2024 11:49 AM EST CBC WITH WBC DIFFERENTIAL Lab Routine Intestinal postoperative nonabsorption 05/22/2024 11:49 AM EST CBC Lab Routine Intestinal postoperative nonabsorption 05/22/2024 11:49 AM EST DIFFERENTIAL, AUTOMATED Lab Routine Intestinal postoperative nonabsorption 05/22/2024 11:49 AM EST Health Maintenance Due Date Last Done Comments COVID-19 Vaccine ( season) 2024 05/16/2022, 06/14/2021, 11/03/2020, Additional history exists GFR 01/30/2024 01/29/2023, 02/18, 02/17/2022, Additional history exists TSH 02/21/2024 02/20/2023, 01/21, 11/30/2020, Additional history exists Zoster Vaccines (2 of 2) 06/06/2024 04/11/2024 Depression Monitoring 06/21/2024 06/21/2023 Adult Wellness Visit 06/22/2024 06/22/2023, 06/21/19 23 Albumin/Creatinine Ratio 10/09/2026 024, 11/30/2020, 11/28/2007, Additional history exists Fecal Occult Blood Test Discontinued 08/11/2009 Pneumococcal Vaccine: 50+ Years Completed 08/19/2014, 02/07/2012, 02/14/2006 Colonoscopy Discontinued 04/26/2021, 11/2020, 04/19/2016, Additional history exists Colorectal Cancer Screening Discontinued RETIRED - COLONOSCOPY-EVERY 5 YRS AGES 18-100 Discontinued 04/26/2021, 04/26/2021, 04/19/2016, Additional history exists Influenza Vaccine (FLU shot) Completed 02/14/2024, 02/20/2023, 02/17/2022, Additional history exists Cologuard Discontinued HPV (Gardasil) Vaccine Aged Out No lo nger eligible based on patient's age to complete this topic Hepatitis B Vaccine Aged Out No longe r eligible based on patient's age to complete this topic MENINGOCOCCAL (MENACTRA/MENVEO) Aged Out No longer eligible based on patient's age to complete this topic Sigmoidoscopy Discontinued documented as of this encounter Medical Devices Implanted Type Area Meeting Specialist Device Identifier Shelf Expiration Date Model / Serial / Lot Clip Quick 2.8mm 230cm - [id number] Implanted:Qty: 1 on 04/26/2021 by Alexx Avalos MD at [facility] [facility] 09/18/2023 [id number] / [id number] documented as of this encounter Visit Diagnoses Diagnosis HTN, goal below 130/80 Unspecified essential hypertension Acquired hypothyroidism Unspecified hypothyroidism Intestinal postoperative nonabsorption Other and unspecified postsurgical nonabsorption documented in this encounter Advance Directives * Full Code (Latest Code Status on File) Date Activated Date Inactivated Comments 02/17/2012 9:41 PM 02/24/2012 7:54 PM This order r eflects the patients wishes and were consensually agreed upon. Question Answer Comments Discussion of Advance Directives occurred with: Patient Does the patient have a Living Will? No Does the patient have Health Care Power of Attor rodri? No * Full Code Date Activated Date Inactivated Comments 04/25/2007 8:13 PM 04/27/2007 6:02 PM * Full Code Date Activated Date Inactivated Comments 04/25/2007 8:09 AM 04/25/2007 8:13 PM Care Teams Bell Clerk Relationship Specialty Start Date End Date Chantel Girard DO [address] [place] [address] [place] [id number] PCP - General Internal Medicine 04/08/21 documented as of this encounter
--- OUTSIDE RECORDS SUMMARY | 2024-05-30 07:00 | External Medical Summary ---
Author Name Unknown Address Unknown Organization [id number]:[facility] – [place] - [address] [place] [address] Laboratory Report Ordering Provider Test Date Status VAL STEPHENSON 05/22/2024 11:49:14 Final Observation Date Value Abnormality Reference (Units ) Status BUN 05/22/2024 11:49:14 19 6-20 (mg/dL) Final Creatinine 05/22/2024 11:49:14 0.8 0.5-1.0 (mg/dL) Final Glomerular filtration rate/1.73 sq M.predicted [Volume Rate/Area] in Serum, Plasma or Blood by Creatinine-based formula (CKD-EPI) 05/22/2024 11:49:14 79 >=60 (mL/min) Final eGFR is calculated based on the CKD-EPI 2020 equation. Sodium 05/22/2024 11:49:14 136 135-146 (m mol/L) Final Potassium 05/22/2024 11:49:14 4.9 3.5-5.1 (m mol/L) Final Cl 05/22/2024 11:49:14 100 98-107 (mm ol/L) Final CO2 05/22/2024 11:49:14 23 22-32 (mmo l/L) Final Anion gap 05/22/2024 11:49:14 13 7-15 (mmol /L) Final Glucose 05/22/2024 11:49:14 92 70-120 (mg /dL) Final Calcium 05/22/2024 11:49:14 9.2 8.4-10.2 ( mg/dL) Final Performing Location [facility] – [place] - [address] [place] [address]
--- OUTSIDE RECORDS SUMMARY | 2024-05-30 07:00 | External Medical Summary | Summary of Care ---
Author Name Unknown Organization [facility] Address [address] [place] [address] Phone [phone] Care Team Providers Care Taker Off Hemp Fiber Name Role Phone Chantel Girard Primary Care Provider [phone] Reason for Visit * Reason Comments EMG Encounter Details Date Type Department Care Team (Late st Contact Info) Description 05/22/2024 11:20 AM EST NeuroDiagnostic Study Neurophysiology [facility] [address] [facility] [place] [address] Kolby Gardner DO [address] [place] [address] Arrived Allergies Active Allergy Reactions Criticality Noted Date [...] Tablet Take by mouth. Act zaria Tiotropium [place] Monohydrate 18 MCG Inhalation Capsule (Spiriva HandiHaler)Indicat [...] start before June 11, 2024. 1 Each 5 Active Hospital, Clinic, or Other Facility Administered Medication Ordered Dose Route Frequency Start Date End Date Status albuterol sulfate (PROVENTIL) (2.5 MG/3ML) 0.083% inhalation solution 2.5 mgIndications:COPD, moderate (HCC) 2.5 mg NEBULIZER Q4H PRN 04/19/2017 Active vitamin b-12 (Cyanocobalamin) inj 1,000 mcgIndications:S/P gastric bypass 1000 mcg IM [id number] 05/11/2022 02/12/2025 Active documented as of this [...] 12/29/2008 Intestinal postoperative nonabsorption 7 BLACKMAN RESEARCH OTHER*[id number] 10/29/2006 Acquired hypothyroidism 01/19/2004 GENERAL OSTEOARTHROSIS Vitamin [...] 08/10/19 19 Coronary artery disease invo lving grindstone coronary artery of grindstone heart without angina pectoris 10/09/2017 08/09/2018 CKD [...] features 02/29/2004 07/11/2011 Mixed dyslipidemia 01/19/2004 9 Rhinitis 12/09/2003 10/09/2017 Carpal tunnel syndrome 03/03/200304/11 Cervical [...] 30 Mcg, IM, 12 yrs and above (C[employer]) 05/16/2022 Pneumococcal Conjugate Vacc, 13 Valent (Prevnar) [...] 18 years and over) Not on file Are you (or your family) puneet eless [...] file Not on file 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 History and Physical examination: A 78-year-old female with numbness and tingling in both hands. Sensation is intact to light touch. EMG/NCS performed for evaluation of median neuropathy. Nerve Conduction Studies Examination Findings: Nerve conduction studies were performed in the bilateral upper extremities. The bilateral median sensory nerve study showed prolonged peak latencies, normal amplitudes, and slow conduction velocities. The ulnar and radial sensory nerve study showed normal peak latencies, normal amplitudes, and normal conduction velocity. The median and ulnar motor nerve study showed normal distal latencies, normal amplitudes, and normal conduction velocity. Please see the attached document for raw data or the scanned document in EPIC. Reference values are from the [facility] normative data guidelines that are attached at the end ofthis document. Electromyography Examination Findings: Needle examination was performed with a disposable concentric needle electrode in selected muscles of the right upper extremity, as recorded in the tables. No abnormal spontaenous activity was seen. The motor unit action potentials in the muscles tested demonstrated normal size, duration, and recruitment. Please see the attached document for raw data or the scanned document in EPIC. The study was done with a concentric needle examination. Kolby Gardner DO documented in this encounter Plan of Treatment Upcoming Encounters Date Type Department Care Team (Late st Contact Info) Description 06/24/2024 1:00 PM EST Nurse Only Ancillary [address] [place] [address] [place], Nurse Annual Wellness [address] [place] [address] [place] [address] 10/14/2024 1:00 PM EDT Office Visit [address] [place] [phone] Toribio Tovar CRNP [address] [place] [address] [place] [id number] 04/15/2025 1:50 PM EST Office Visit [address] [place] [phone] Chantel Girard DO [address] [place] [address] [place] [address] Health Maintenance Due Date Last Done Comments [...] this encounter Medical Devices Implanted Type Area Certified Adapted Physical Educator Device Identifier Shelf Expiration Date Model / Serial / Lot Clip Quick 2.8mm 230cm - [id number] Implanted:Qty: 1 on 04/26/2021 by Alexx Avalos MD at ENDOSCOPY [facility] [employer] [facility] 09/18/2023 [id number] / / [id number] documented as of this encounter Visit Diagnoses Diagnosis Numbness and tingling in both hands [R20.0, R20.2]- Primary documented in this encounter Advance Directives * [...] 8:09 AM 04/25/2007 8:13 PM Care Teams Taker Off Hemp Fiber Relationship Specialty Start Date End Date Chantel Girard DO [address] [place] [address] [place] [phone] PCP - General Internal Medicine 04/08/21 documented as of this encounter
--- OUTSIDE RECORDS SUMMARY | 2024-05-30 07:00 | External Medical Summary ---
Author Name Unknown Address Unknown Organization K01:LABORATORY [facility] [place] - [address] [place] [address] Laboratory Report Ordering Provider Test Date Status SACHINNEAL 05/22/2024 11:49:14 Final Observation Date Value Abnormality Reference (Units ) Status TSH 05/22/2024 11:49:14 4.76 Above high normal 0. 27-4.20 (uIU/mL) Final Performing Location LABORATORY C - [address] [place] [address]
--- OUTSIDE RECORDS SUMMARY | 2024-05-30 07:00 | External Medical Summary ---
Author Name Unknown Address Unknown Organization K01:[place] [place] [facility] [place] [address] [facility] [place] [address] Laboratory Report Ordering Provider Test Date Status VAL STEPHENSON 05/22/2024 11:49:14 Final Observation Date Value Abnormality Reference (Units ) Status SYNC LEUKOCYTES IN BLOOD BY AUTOMATED COUNT 05/22/2024 11:49:14 7.30 4.00-10.80 (K/uL) Final Segs 05/22/2024 11:49:14 70.3 40.0-75.0 (%) Final Lymphs % 05/22/2024 11:49:14 17.5 Below low normal 18.0-42.0 (%) Final Monos 05/22/2024 11:49:14 9.0 1.0-11.0 (%) Final Eosinophils 05/22/2024 11:49:14 1.8 0.0-6.0 (%) Final Basos 05/22/2024 11:49:14 0.7 0.0-2.0 (%) Final Immature Granulocyte, Percent 05/22/2024 11:49:14 0.7 0.0-2.0 (%) Final Absolute Segs 05/22/2024 11:49:14 5.13 1.80-7.70 (K/uL) Final Lymphs, absolute 05/22/2024 11:49:14 1.28 1.00-4.80 (K/ul) Final Monos, Abs 05/22/2024 11:49:14 0.66 0.00-1.10 (K/uL) Final Eos, Abs 05/22/2024 11:49:14 0.13 0.00-0.70 (K/uL) Final Basos, Abs 05/22/2024 11:49:14 0.05 0.00-0.20 (K/uL) Final Immature Granulocytes, Number 05/22/2024 11:49:14 0.05 0.00-0.20 (K/uL) Final Performing Location [place] [facility] [place] [address] [facility] [address]
--- OUTSIDE RECORDS SUMMARY | 2024-05-30 07:01 | External Medical Summary | Summary of Care ---
Author Name Unknown Organization [facility] Address [address] [place] [address] Phone [phone] Care Team Providers Care Director Of Strategic Sourcing Name Role Phone Chantel Girard Primary Care Provider [phone] Encounter Details Date Type Department Care Team (Late st Contact Info) Description 04/08/2024 Patient Reported Data Patient Survey Ortho [facility] Allergies Active Allergy Reactions Criticality Noted Date Comments Amoxicillin 09/26/2000 hives Gentamicin Sulfate Other (Please comment) High 12/29/2008 Itchy eyes Morphine And Codeine 11/10/1999 hydrocodone,itching Percocet 10/03/2002 Itch Tetanus Toxoid 09/25/2002 arm swollen,painful,fing ers numb Tramadol Hcl 09/26/2000 hives documented as of this encounter (statuses as of 04/08/2024) Medications Multiple Vitamins-Minerals (MULTIVITAMIN ADULT) CHEW Take by mouth. Act zaria Calcium Carbonate-Vitamin D 500-125 MG-UNIT Oral Tablet Take by mouth. Act zaria Tiotropium [place] Monohydrate 18 MCG Inhalation Capsule (Spiriva HandiHaler)Indicat [...] mouth in the morning. 100 Tablet 3 4 Active Levothyroxine Sodium 88 MCG Oral Tablet (Levoxyl)Indicatio ns:Acquired hypothyroidism Take 1 Tablet by mouth daily first thing in the morning. 100 Tablet 3 4 Active Losartan Potassium 50 MG Oral Tablet (Cozaar)Indication s:HTN, goal below 130/80 Take 1 Tablet by mouth in the morning. 100 Tablet 3 04/02/2024 9:15 AM EST 4 Active Spironolactone 25 MG Oral Tablet (Aldactone) Take 1 Tablet by mouth in the morning. 100 Tablet 3 4 Active Diclofenac Sodium 1 % External Gel (Voltaren)Indicati ons:Pain in both feet,Right wrist pain Apply topically to affected area 2 times a day. Apply to right wrist and feet twice daily as needed. 100 g 1 4 Active Zoster Vac Recomb Adjuvanted 50 MCG/0.5ML Intramuscular Suspension Reconstituted (Shingrix) Inject 0.5 mL into a large muscle now and repeat dose in 60 to 180 days 1 Each 1 4 Active Hospital, Clinic, or Other Facility Administered Medication Ordered Dose Route Frequency Start Date End Date Status albuterol sulfate (PROVENTIL) (2.5 MG/3ML) 0.083% inhalation solution 2.5 mgIndications:COPD, moderate (HCC) 2.5 mg NEBULIZER Q4H PRN 04/19/2017 Active vitamin b-12 (Cyanocobalamin) inj 1,000 mcgIndications:S/P gastric bypass 1000 mcg IM [id number] 05/11/2022 02/12/2025 Active documented as of this encounter (statuses as of 04/08/2024) Active Problems Problem Noted Date Diagnosed Date Primary osteoarthritis of both knees 09/05/2023 Osteoporosis [...] 12/29/2008 Intestinal postoperative nonabsorption 7 BLACKMAN RESEARCH OTHER*[id number] 10/29/2006 Acquired hypothyroidism 01/19/2004 GENERAL OSTEOARTHROSIS Vitamin D deficiency Ventral hernia without obstruction or gangrene documented as of this encounter (statuses as of 04/08/2024) Resolved Problems Problem Noted Date Diagnosed Date [...] 08/10/19 19 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 pectoris 10/09/2017 08/09/2018 CKD [...] as of this encounter (statuses as of 04/08/2024) Immunizations Name Administration Dates Next Due COVID-19 mRNA, LNP-s, No Pre serve, 2-Dose Series (Moderna) 11/03/2020,10/05/2020 COVID-19, mRNA, LNP-s, PF, B ooster, 100mcg/0.5mg (Moderna) 06/14/2021 Covid-19, Mrna, Lnp-s, Pf, B ivalent, 30 Mcg, IM, 12 yrs and above (Gyst) 05/16/2022 Pneumococcal Conjugate Vacc, 13 Valent (Prevnar) 08/19/2014 Pneumococcal Polysaccharide PPV23 (Pneumovax) 02/07/2012,02/14/2006 Season Influenza, Quad, PF, Adjuvanted, 65+ Yrs, [...] (Fluad) 02/21/2019 TD - Tetanus/Diptheria (ADULT) 09/25/2002 documented as of this encounter Social History Tobacco Use Types Packs/Day Years Used Date Smoking Tobacco: Former Cigarettes 0.3 0.5 0 11/1968 - 1969 Smokeless Tobacco: Never Comments:No regular use trie d as a kid Alcohol Use Standard Drinks/Week Comments Not Currently 0 (1 standard drink = 0.6 oz pure alcohol) quit 1988 - 2 years of abuse RARE USE AT THIS [...] file Not on file 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 Not on file Not on file documented as of this encounter Plan of Treatment Upcoming Encounters Date Type Department Care Team (Late st Contact Info) Description 04/15/2024 2:30 PM EST Office Visit Family Medicine [address] [place] [phone] [place] [address] 04/23/2024 9:00 AM EST Office Visit Orthopaedics [facility] [address] [facility] [place] [address] Kevin Manning MD [address] [facility] [place] [address] 05/22/2024 11:20 AM EST NeuroDiagnostic Study Neurophysiology [facility] [address] [facility] [place] [address] Kolby Gardner, [address] [place] [address] 06/24/2024 1:00 PM EST Nurse Only Ancillary [address] [place] [address] [place], Nurse Annual Wellness [address] [place] [address] [place] [address] Health Maintenance Due Date Last Done Comments Zoster Vaccines (1 of 2) 1996 COVID-19 Vaccine ( season) 2024 05/16/2022, 06/14/2021, 11/03/2020, Additional history exists GFR 01/30/2024 01/29/2023, 02/18, 02/17/2022, Additional history exists TSH 02/21/2024 02/20/2023, 01/21, 11/30/2020, Additional history exists Depression Monitoring 06/21/2024 06/21/2023 Adult Wellness Visit 06/22/2024 06/22/2023, 06/21/19 23 Albumin/Creatinine Ratio 10/09/2026 024, 11/30/2020, 11/28/2007, Additional history exists Fecal Occult Blood Test Discontinued 08/11/2009 Pneumococcal Vaccine: 65+ Years Completed 08/19/2014, 02/07/2012, 02/14/2006 Colonoscopy Discontinued [...] this encounter Medical Devices Implanted Type Area As400 Consultant Device Identifier Shelf Expiration Date Model / Serial / Lot Clip Quick 2.8mm 230cm - [id number] Implanted:Qty: 1 on 04/26/2021 by Alexx Avalos MD at ENDOSCOPY [facility] [employer] 09/18/2023 [id number] / / [id number] documented as of this encounter Advance Directives * Full Code [...] 8:09 AM 04/25/2007 8:13 PM Care Teams Director Of Strategic Sourcing Relationship Specialty Start Date End Date Chantel Girard DO [address] [place] [address] [place] [address] PCP - General Internal Medicine 04/08/21 documented as of this encounter
--- OUTSIDE RECORDS SUMMARY | 2024-05-30 07:01 | External Medical Summary | Summary of Care ---
Author Name Unknown Organization [facility] Address [address] [place] [address] Phone [phone] Care Team Providers Care Corporate Trust Officer Name Role Phone Chantel Girard DO Primary Care Provider [phone] Reason for Visit * Reason Comments Re-Check Encounter Details Date Type Department Care Team (Latest Contact Info) Description 04/15/2024 2:30 PM EST Office Visit Family Medicine [address] [phone] Chantel Girard [address] [place] [address] Acquired hypothyroidism*; Major depressive disorder, single episode, in full remission (HCC); Intestinal postoperative nonabsorption; HTN, goal below 130/80; Depression with anxiety; Moderate persistent asthma without complication Allergies Active Allergy Reactions Criticality Noted Date Comments Amoxicillin 09/26/2000 hives Gentamicin Sulfate Other (Please comment) High 12/29/2008 Itchy eyes Morphine And Codeine 11/10/1999 hydrocodone,itching Percocet 10/03/2002 Itch Tetanus Toxoid 09/25/2002 arm swollen,painful,fing ers numb Tramadol Hcl 09/26/2000 hives documented as of this encounter (statuses as of 04/15/2024) Medications Multiple Vitamins-Minerals (MULTIVITAMIN ADULT) CHEW Take by mouth. Active Calcium Carbonate-Vitamin D 500-125 MG-UNIT Oral Tablet Take by mouth. Active Tiotropium Amity Monohydrate 18 MCG Inhalation Capsule (Spiriva HandiHaler)Indica tions:Asthma, moderate persistent INHALE THE CONTENTS OF 1 CAPSULE VIA HANDIHALER ONCE A DAY (DO NOT SWALLOW CAPSULE) 90 Capsule 1 4 3:15 PM EDT 10/23/19 24 2024 Active Fluticasone-Salme terol 250-50 MCG/ACT Inhalation Aerosol Powder Breath Activated (Advair Diskus) INHALE ONE PUFF BY MOUTH EVERY MORNING & ONE PUFF BEFORE BEDTIME 180 Each 1 4 7:40 AM EDT 02/20/20 24 Active Alendronate Sodium 70 MG Oral Tablet (Fosamax) Take 1 Tablet by mouth once a week. with 8 oz. water 30 minutes before first meal of the day. Remain upright for 30 min after taking tablet. 12 Tablet 3 4 9:10 AM EST 03/28/20 24 Active Citalopram Hydrobromide 20 MG Oral Tablet (CeleXA)Indicatio ns:Depression with anxiety Take 1 Tablet by mouth in the morning. 100 Tablet 3 03/28/20 24 Active Levothyroxine Sodium 88 MCG Oral Tablet (Levoxyl)Indicati ons:Acquired hypothyroidism Take 1 Tablet by mouth daily first thing in the morning. 100 Tablet 3 03/28/20 24 Active Losartan Potassium 50 MG Oral Tablet (Cozaar)Indicatio ns:HTN, goal below 130/80 Take 1 Tablet by mouth in the morning. 100 Tablet 3 4 9:15 AM EST 03/28/20 24 Active Spironolactone 25 MG Oral Tablet (Aldactone) Take 1 Tablet by mouth in the morning. 100 Tablet 3 03/28/20 24 Active Diclofenac Sodium 1 % External Gel (Voltaren)Indicat ions:Pain in both feet,Right wrist pain Apply topically to affected area 2 times a day. Apply to right wrist and feet twice daily as needed. 100 g 1 03/28/20 24 Active Zoster Vac Recomb Adjuvanted 50 MCG/0.5ML Intramuscular Suspension Reconstituted (Shingrix) Inject 0.5 mL into a large muscle in 2 months. Do not start before June 11, 2024. 1 Each 06/11/19 25 Active Zoster Vac Recomb Adjuvanted 50 MCG/0.5ML Intramuscular Suspension Reconstituted (Shingrix) Inject 0.5 mL into a large muscle now and repeat dose in 60 to 180 days 1 Each 1 03/28/20 24 2023 Discontinued Hospital, Clinic, or Other Facility Administered Medication Ordered Dose Route Frequency Start Date End Date Status albuterol sulfate (PROVENTIL) (2.5 MG/3ML) 0.083% inhalation solution 2.5 mgIndications:COPD, moderate (HCC) 2.5 mg NEBULIZER Q4H PRN 04/19/2017 Active vitamin b-12 (Cyanocobalamin) inj 1,000 mcgIndications:S/P gastric bypass 1000 mcg IM [id number] 05/11/2022 02/12/2025 Active documented as of this encounter (statuses as of 04/15/2024) Active Problems Problem Noted Date Diagnosed Date [...] 12/29/2008 Intestinal postoperative nonabsorption 7 BLACKMAN RESEARCH OTHER*[id number] 10/29/2006 Acquired hypothyroidism 01/19/2004 GENERAL OSTEOARTHROSIS Vitamin D deficiency Ventral hernia without obstruction or gangrene documented as of this encounter (statuses as of 04/15/2024) Resolved Problems Problem Noted Date Diagnosed Date [...] 08/10/19 19 Coronary artery disease invo lving [place] coronary artery of [place] heart without angina pectoris 10/09/2017 08/09/2018 CKD [...] as of this encounter (statuses as of 04/15/2024) Immunizations Name Administration Dates Next Due COVID-19 mRNA, LNP-s, No Pre serve, 2-Dose Series (Moderna) 11/03/2020,10/05/2020 COVID-19, mRNA, LNP-s, PF, B ooster, 100mcg/0.5mg (Moderna) 06/14/2021 Covid-19, Mrna, Lnp-s, Pf, B ivalent, 30 Mcg, IM, 12 yrs and above (Sincerely) 05/16/2022 Pneumococcal Conjugate Vacc, 13 Valent (Prevnar) [...] file Not on file 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 Chief Complaint Patient presents with Re-Check HPI: Mira Callaway presents today for routine follow up. Today she reports doing a bit better. Her right shoulder is less painful and she can move it a bit better. It is not completely back to normal but she is okay with how it is right now. She still has pain behind her left knee. It is getting worse. She is still getting numbness into her bilateral hands. EMG has been scheduled. Mood is good on her current dose of citalopram. Breathing is doing really well on Advair and Spiriva. She got her RSV and shingles shot. BP is well controlled here today. No chest pain or heaviness. No JARVIS. No lightheadedness or dizziness. PMH: Patient Active Problem List Diagnosis Acquired hypothyroidism GENERAL OSTEOARTHROSIS Intestinal postoperative nonabsorption Vitamin B deficiency Vitamin D deficiency BLACKMAN RESEARCH OTHER*[id number] Umbilical hernia Depression with anxiety Arthritis of right acromioclavicular joint S/P gastric bypass Ventral hernia without obstruction or gangrene History of paroxysmal atrial tachycardia History of adenomatous polyp of colon Asthma, moderate persistent Obstructive sleep apnea of adult HTN, goal below 130/80 Osteoporosis Primary osteoarthritis of both knees Current Outpatient Medications Medication Sig Dispense Refill Multiple Vitamins-Minerals (MULTIVITAMIN ADULT) CHEW Take by mouth. Calcium Carbonate-Vitamin D 500-125 MG-UNIT Oral Tablet Take by mouth. Tiotropium Amity Monohydrate 18 MCG Inhalation Capsule (Spiriva HandiHaler) INHALE THE CONTENTS OF 1 CAPSULE VIA HANDIHALER ONCE A DAY (DO NOT SWALLOW CAPSULE) 90 Capsule 1 Fluticasone-Salmeterol 250-50 MCG/ACT Inhalation Aerosol Powder Breath Activated (Advair Diskus) INHALE ONE PUFF BY MOUTH EVERY MORNING & ONE PUFF BEFORE BEDTIME 180 Each 1 Alendronate Sodium 70 MG Oral Tablet (Fosamax) Take 1 Tablet by mouth once a week. with 8 oz. water30 minutes before first meal of the day. Remain upright for 30 min after taking tablet. 12 Tablet 3 Citalopram Hydrobromide 20 MG Oral Tablet (CeleXA) Take 1 Tablet by mouth in the morning. 100 Tablet 3 Levothyroxine Sodium 88 MCG Oral Tablet (Levoxyl) Take 1 Tablet by mouth daily first thing in the morning. 100 Tablet 3 Losartan Potassium 50 MG Oral Tablet (Cozaar) Take 1 Tablet by mouth in the morning. 100 Tablet 3 Spironolactone 25 MG Oral Tablet (Aldactone) Take 1 Tablet by mouth in the morning. 100 Tablet 3 Diclofenac Sodium 1 % External Gel (Voltaren) Apply topically to affected area 2 times a day. Applyto right wrist and feet twice daily as needed. 100 g 1 Current Facility-Administered Medications Medication Dose Route Frequency Provider Last Rate Last Admin albuterol sulfate (PROVENTIL) (2.5 MG/3ML) 0.083% inhalation solution 2.5 mg 2.5 mg Nebulizer Q4H PRN Chantel Girard DO 2.5 mg at 08/22/22 0755 vitamin b-12 (Cyanocobalamin) inj 1,000 mcg 1,000 mcg Intramuscular Q12 Weeks Shari Carbone PA-C 1,000 mcg at 02/14/24 1311 Review of patient's allergies indicates: Allergen Reactions Gentamicin Ophthalmic [Gentamicin Sulfate] Other (Please comment) Itchy eyes Amoxicillin hives Morphine And Codeine hydrocodone,itching Percocet Itch Tetanus Toxoid arm swollen,painful,fingers numb Tramadol Hcl hives Objective: BP 124/70 | Pulse 58 | Wt 226 lb 6.4 oz (102.7 kg) | SpO2 98% | BMI 37.67 kg/m | BSA 2.17 m General: alert, healthy, no distress, well nourished, and well developed Neck: supple, no adenopathy Heart: regular rate & rhythm and no murmur Lungs: chest symmetric with normal AP diameter, no chest deformities noted, normal respiratory rateand rhythm, lungs clear to auscultation Abdomen: abdomen soft and non-tender Extremities: no joint deformities, effusion, or inflammation, no edema Neuro Exam: alert & oriented x 3 with fluent speech, no focal motor/sensory deficits, gait normal Skin: skin color, texture, turgor are normal, no rashes or significant lesions ASSESSMENT/PLAN: Acquired hypothyroidism (Primary) - continue levothyroxine. - TSH; Future; Expected date: 04/15/2024 Major depressive disorder, single episode, in full remission (HCC) - stable on citalopram. Continue. Intestinal postoperative nonabsorption - she does not follow with GI nutrition and does not wish to. - CBC WITH WBC DIFFERENTIAL; Future; Expected date: 04/15/2024 HTN, goal below 130/80 - well controlled without orthostatic symptoms. - BASIC METABOLIC PANEL; Future; Expected date: 04/15/2024 Depression with anxiety Moderate persistent asthma without complication - stable on advair and spiriva. Other orders - Zoster Vac Recomb Adjuvanted 50 MCG/0.5ML Intramuscular Suspension Reconstituted (Shingrix); Inject 0.5 mL into a large muscle in 2 months. Do not start before June 11, 2024. Follow-up: Return in about 6 months (around 10/13/2024). | Check-out note: Labs today Chantel Girard DO documented in this encounter Plan of Treatment Upcoming Encounters Date Type Department Care Team (Late st Contact Info) Description 04/23/2024 9:00 AM EST Office Visit Orthopaedics [facility] 132 [facility] [place] [address] Kevin Manning MD 132 [facility] [place] [address] 05/22/2024 11:20 AM EST NeuroDiagnostic Study Neurophysiology [facility] 132 [facility] [place] [address] Kolby Gardner DO [address] [place] [address] 06/24/2024 1:00 PM EST Nurse Only Ancillary [address] [place] [address] Zein[place], Nurse [address] [place] [address] 10/14/2024 1:00 PM EDT Office Visit [address] [place] [phone] Toribio Tovar CRNP [address] [place] [address] [place] [address] 04/15/2025 1:50 PM EST Office Visit [address] [place] [phone] Chantel Girard, [address] [place] [address] Scheduled Orders Name Type Priority Associated Diagnoses Orde r Schedule BASIC METABOLIC PANEL Lab Routine HTN, goal below 130/80 Expected: 04/15/2024 (Approximate), Expires: 04/15/2025 TSH Lab Routine Acquired hypothyroidism Expected: 04/15/2024 (Approximate), Expires: 04/15/2025 CBC WITH WBC DIFFERENTIAL Lab Routine Intestinal postoperative nonabsorption Expected: 04/15/2024 (Approximate), Expires: 04/15/2025 Health Maintenance Due Date Last Done Comments [...] Completed 08/19/2014, 02/07/2012, 02/14/2006 Colonoscopy Discontinued 04/26/2021, 12/11/2020, 04/19/2016, Additional history exists Colorectal Cancer Screening [...] this encounter Medical Devices Implanted Type Area Fitter Hand Device Identifier Shelf Expiration Date Model / Serial / Lot Clip Quick 2.8mm 230cm - [id number] Implanted:Qty: 1 on 04/26/2021 by Alexx Avalos MD at ENDOSCOPY [facility] [employer] 09/18/2023 [id number]-202UR.A / / [id number] documented as of this encounter Visit Diagnoses Diagnosis Acquired hypothyroidism- Primary Unspecified hypothyroidism Major depressive disorder, single episode, in full remission (HCC) Major depressive disorder, single episode in full remission Intestinal postoperative nonabsorption Other and unspecified postsurgical nonabsorption HTN, goal below 130/80 Unspecified essential hypertension Depression with anxiety Dysthymic disorder Moderate persistent asthma without complication Unspecified asthma documented in this encounter Advance Directives * [...] 8:09 AM 04/25/2007 8:13 PM Care Teams Corporate Trust Officer Relationship Specialty Start Date End Date Chantel Girard DO [address] [place] [address] [place] [address] PCP - General Internal Medicine 04/08/21 documented as of this encounter"
--- OUTSIDE RECORDS SUMMARY | 2024-05-30 07:01 | External Medical Summary | Summary of Care ---
Author Name Unknown Organization [facility] Address [address] [place] [address] Phone [phone] Care Team Providers Care Lan Specialist Name Role Phone Chantel Girard Primary Care Provider [phone] Encounter Details Date Type Department Care Team [...] Tablet Take by mouth. Act zaria Tiotropium [place] Monohydrate 18 MCG Inhalation Capsule (Spiriva HandiHaler)Indicat [...] 1,000 mcgIndications:S/P gastric bypass 1000 mcg IM [id number] 05/11/2022 02/12/2025 Active documented as of this [...] 12/29/2008 Intestinal postoperative nonabsorption 7 BLACKMAN RESEARCH OTHER*[id number] 10/29/2006 Acquired hypothyroidism 01/19/2004 GENERAL OSTEOARTHROSIS Vitamin [...] 08/10/19 19 Coronary artery disease invo lving [place] coronary artery of [place] heart without angina pectoris 10/09/2017 08/09/2018 CKD [...] 30 Mcg, IM, 12 yrs and above ([employer]) 05/16/2022 Pneumococcal Conjugate Vacc, 13 Valent (Prevnar) [...] file 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 on file documented as of this encounter Plan of Treatment Upcoming Encounters Date Type Department Care Team (Late st Contact Info) Description 04/15/2024 2:30 PM EST Office Visit Family Medicine [address] [place] [phone] [place] [address] 04/23/2024 9:00 AM EST Office Visit Orthopaedics [facility] 132 [facility] [place] [address] Kevin Manning MD 132 [facility] [place] [address] 05/22/2024 11:20 AM EST NeuroDiagnostic Study Neurophysiology [facility] 132 [facility] [place] [address] Kolby Gardner, [address] [place] [address] 06/24/2024 1:00 PM EST Nurse Only Ancillary [address] [place] [address] [place], Nurse Annual [facility]ness [address] [place] [address] [place] [address] Health Maintenance Due Date Last Done Comments [...] this encounter Medical Devices Implanted Type Area Long Term Care Social Worker Device Identifier Shelf Expiration Date Model / Serial / Lot Clip Quick 2.8mm 230cm - [id number] Implanted:Qty: 1 on 04/26/2021 by Alexx Avalos MD at [facility]OSCOPY [facility] [employer] 09/18/2023 [id number]-202UR.A / / [id number] documented as [...] 8:09 AM 04/25/2007 8:13 PM Care Teams Lan Specialist Relationship Specialty Start Date End Date Chantel Girard DO [address] [place] [address] [place] [address] PCP - General Internal Medicine 04/08/21 documented as of this encounter
--- OUTSIDE RECORDS SUMMARY | 2024-05-30 07:01 | External Medical Summary | Summary of Care ---
Author Name Unknown Organization [facility] Address [address] [place] [address] Phone [phone] Care Team Providers Care Patternator Name Role Phone Chantel Girard Primary Care Provider [phone] Encounter Details Date Type Department Care Team (Late st Contact Info) Description 04/22/2024 Orders Only PATIENT PORTAL DO NOT DELETE THIS DEPT USED BY [place] [id number] Allergies Active Allergy Reactions Criticality Noted Date Comments Amoxicillin 09/26/2000 hives Gentamicin Sulfate Other (Please comment) High 12/29/2008 Itchy eyes Morphine And Codeine 11/10/1999 hydrocodone,itching Percocet 10/03/2002 Itch Tetanus Toxoid 09/25/2002 arm swollen,painful,fing ers numb Tramadol Hcl 09/26/2000 hives documented as of this encounter (statuses as of 04/22/2024) Medications Multiple Vitamins-Minerals (MULTIVITAMIN ADULT) CHEW Take by mouth. Act zaria Calcium Carbonate-Vitamin D 500-125 MG-UNIT Oral Tablet Take by mouth. Act zaria Tiotropium Sandwich Monohydrate 18 MCG Inhalation Capsule (Spiriva HandiHaler)Indicat ions:Asthma, moderate persistent INHALE THE CONTENTS OF 1 CAPSULE VIA HANDIHALER ONCE A DAY (DO NOT SWALLOW CAPSULE) 90 Capsule 1 01/28/2024 3:15 PM EDT 025 Active Fluticasone-Salmet mari 250-50 MCG/ACT Inhalation [...] 1,000 mcgIndications:S/P gastric bypass 1000 mcg IM [id number] 05/11/2022 02/12/2025 Active documented as of this encounter (statuses as of 04/22/2024) Active Problems Problem Noted Date Diagnosed Date [...] 12/29/2008 Intestinal postoperative nonabsorption 7 BLACKMAN RESEARCH OTHER*[id number] 10/29/2006 Acquired hypothyroidism 01/19/2004 GENERAL OSTEOARTHROSIS Vitamin D deficiency Ventral hernia without obstruction or gangrene documented as of this encounter (statuses as of 04/22/2024) Resolved Problems Problem Noted Date Diagnosed Date [...] 08/10/19 19 Coronary artery disease invo lving [place] coronary artery of [place] heart without angina pectoris 10/09/2017 08/09/2018 CKD [...] as of this encounter (statuses as of 04/22/2024) Immunizations Name Administration Dates Next Due COVID-19 mRNA, LNP-s, No Pre serve, 2-Dose Series (Moderna) 11/03/2020,10/05/2020 COVID-19, mRNA, LNP-s, PF, B ooster, 100mcg/0.5mg (Moderna) 06/14/2021 Covid-19, Mrna, Lnp-s, Pf, B ivalent, 30 Mcg, IM, 12 yrs and above ([employer]) 05/16/2022 Pneumococcal Conjugate Vacc, 13 Valent (Prevnar) [...] file Not on file 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 Not on file documented as of this encounter Plan of Treatment Upcoming Encounters Date Type Department Care Team (Late st Contact Info) Description 05/22/2024 11:20 AM EST NeuroDiagnostic Study Neurophysiology [facility] [address] [facility] [place] [address] Kolby Gardner, [facility] [address] 06/24/2024 1:00 PM EST Nurse Only Ancillary [address] [place] [address] [place], Nurse Annual [address] [place] [address] 10/14/2024 1:00 PM EDT Office Visit [address] [place] [phone] Toribio Tovar CRNP [address] [place] [address] [place] [address] 04/15/2025 1:50 PM EST Office Visit [address] [place] [phone] Chantel Girard, [address] [place] [address] Health Maintenance Due Date Last Done Comments [...] this encounter Medical Devices Implanted Type Area Spinning Lathe Operator Automatic Device Identifier Shelf Expiration Date Model / Serial / Lot Clip Quick 2.8mm 230cm - [id number] Implanted:Qty: 1 on 04/26/2021 by Alexx Avalos MD at [facility]COPY [facility] 09/18/2023 HX-202UR.A / / [id number] documented as [...] patient have Health Care Power of Attor ordri? No * Full Code Date Activated Date Inactivated Comments 04/25/2007 8:13 PM 04/27/2007 6:02 PM * Full Code Date Activated Date Inactivated Comments 04/25/2007 8:09 AM 04/25/2007 8:13 PM Care Teams Patternator Relationship Specialty Start Date End Date Chantel Girard DO [address] [place] [address] [place] [address] PCP - General Internal Medicine 04/08/21 documented as of this encounter
--- OUTSIDE RECORDS SUMMARY | 2024-05-30 07:02 | External Medical Summary | Summary of Care ---
Author Name Unknown Organization [facility] Address [address] [place] [address] Phone [phone] Care Team Providers Care Sheet Metal Foreman Name Role Phone Chantel Girard Primary Care Provider Encounter Details Date Type Department Care Team (Late st Contact Info) Description 04/07/2024 Patient Reported Data Patient Survey Ortho [facility] Allergies Active Allergy Reactions Criticality Noted Date Comments Amoxicillin 09/26/2000 hives Gentamicin Sulfate Other (Please comment) High 12/29/2008 Itchy eyes Morphine And Codeine 11/10/1999 hydrocodone,itching Percocet 10/03/2002 Itch Tetanus Toxoid 09/25/2002 arm swollen,painful,fing ers numb Tramadol Hcl 09/26/2000 hives documented as of this encounter (statuses as of 04/07/2024) Medications Multiple Vitamins-Minerals (MULTIVITAMIN ADULT) CHEW Take by mouth. Act zaria Calcium Carbonate-Vitamin D 500-125 MG-UNIT Oral Tablet Take by mouth. Act zaria Tiotropium Allouez Monohydrate 18 MCG Inhalation Capsule (Spiriva HandiHaler)Indicat [...] after taking tablet. 12 Tablet 3 4 Active Citalopram Hydrobromide 20 MG Oral [...] 1,000 mcgIndications:S/P gastric bypass 1000 mcg IM [id number] 05/11/2022 02/12/2025 Active documented as of this encounter (statuses as of 04/07/2024) Active Problems Problem Noted Date Diagnosed Date [...] 12/29/2008 Intestinal postoperative nonabsorption 7 BLACKMAN RESEARCH OTHER*[id number] 10/29/2006 Acquired hypothyroidism 01/19/2004 GENERAL OSTEOARTHROSIS Vitamin D deficiency Ventral hernia without obstruction or gangrene documented as of this encounter (statuses as of 04/07/2024) Resolved Problems Problem Noted Date Diagnosed Date [...] 08/10/19 19 Coronary artery disease invo lving [place] coronary artery of [place] heart without angina pectoris 10/09/2017 08/09/2018 CKD [...] as of this encounter (statuses as of 04/07/2024) Immunizations Name Administration Dates Next Due COVID-19 mRNA, LNP-s, No Pre serve, 2-Dose Series (Moderna) 11/03/2020,10/05/2020 COVID-19, mRNA, LNP-s, PF, B ooster, 100mcg/0.5mg (Moderna) 06/14/2021 Covid-19, Mrna, Lnp-s, Pf, B ivalent, 30 Mcg, IM, 12 yrs and above ([employer]) 05/16/2022 Pneumococcal Conjugate Vacc, 13 Valent (Prevnar) [...] Not 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 on file documented as of this encounter Plan of Treatment Upcoming Encounters Date Type Department Care Team (Late st Contact Info) Description 04/15/2024 2:30 PM EST Office Visit Family Medicine [address] [place] [phone] [place] [address] 04/23/2024 9:00 AM EST Office Visit Orthopaedics [facility] 132 [facility] [place] [address] Kevin Manning MD 132 [facility] [place] [address] 05/22/2024 11:20 AM EST NeuroDiagnostic Study Neurophysiology [facility] 132 [facility] [place] [address] Kolby Gardner, [address] [address] 06/24/2024 1:00 PM EST Nurse Only Ancillary [address] [place] [address] [place], Nurse Annual [address] [place] [address] Health Maintenance Due Date Last Done Comments Zoster Vaccines (1 of 2) 1996 COVID-19 Vaccine ( season) 2024 05/16/2022, 06/14/2021, 11/03/2020, Additional history exists G[facility] 01/30/2024 01/29/2023, 02/18, 02/17/2022, Additional history exists [facility] 02/21/2024 02/20/2023, 01/21, 11/30/2020, Additional history exists [...] this encounter Medical Devices Implanted Type Area Party Demonstrator Device Identifier Shelf Expiration Date Model / Serial / Lot Clip Quick 2.8mm 230cm - [id number] Implanted:Qty: 1 on 04/26/2021 by Alexx Avalos MD at [facility]OSCOPY [facility] [employer] [facility] 09/18/2023 HX-202UR.A / / [id number] documented [...] 8:09 AM 04/25/2007 8:13 PM Care Teams Sheet Metal Foreman Relationship Specialty Start Date End Date Chantel Girard DO [address] [place] [address] [place] [address] PCP - General Internal Medicine 04/08/21 documented as of this encounter
--- OUTSIDE RECORDS SUMMARY | 2024-05-30 07:02 | External Medical Summary | Summary of Care ---
Author Name Unknown Organization [facility] Address [address] [place] [address] Phone [phone] Care Team Providers Care Fuel Quality Tech Name Role Phone Chantel Girard Primary Care [...] Tablet Take by mouth. Act zaria Tiotropium [place] Monohydrate 18 MCG Inhalation Capsule (Spiriva HandiHaler)Indicat [...] 1,000 mcgIndications:S/P gastric bypass 1000 mcg IM [id number] 05/11/2022 02/12/2025 Active documented as of this [...] 12/29/2008 Intestinal postoperative nonabsorption 7 BLACKMAN RESEARCH OTHER*[id number] 10/29/2006 Acquired hypothyroidism 01/19/2004 GENERAL OSTEOARTHROSIS Vitamin [...] 08/10/19 19 Coronary artery disease invo lving [place] coronary artery of [place] heart without angina pectoris 10/09/2017 08/09/2018 CKD [...] 30 Mcg, IM, 12 yrs and above ([employer]) 05/16/2022 Pneumococcal Conjugate Vacc, 13 Valent (Prevnar) [...] file 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 on file documented as of this encounter Plan of Treatment Upcoming Encounters Date Type Department Care Team (Late st Contact Info) Description 04/15/2024 2:30 PM EST Office Visit Family Medicine [address] [place] [phone] [place] [address] 04/23/2024 9:00 AM EST Office Visit Orthopaedics [facility] [address] [facility] [place] [address] Kevin Manning MD 132 [facility] [place] [address] 05/22/2024 11:20 AM EST NeuroDiagnostic Study Neurophysiology [facility] [address] [facility] [place] [address] Kolby Gardner, [address] [place] [address] 06/24/2024 1:00 PM EST Nurse Only Ancillary [address] [place] [address] [place], Nurse Annual Wellness [address] [place] [address] [place] [address] Health Maintenance Due Date Last Done Comments [...] this encounter Medical Devices Implanted Type Area Foot Gatherer Device Identifier Shelf Expiration Date Model / Serial / Lot Clip Quick 2.8mm 230cm - [id number] Implanted:Qty: 1 on 04/26/2021 by Alexx Avalos MD at ENDOSCOPY [facility] [employer] 09/18/2023 HX-202UR.A / / [id number] documented as [...] 8:09 AM 04/25/2007 8:13 PM Care Teams Fuel Quality Tech Relationship Specialty Start Date End Date Chantel Girard DO [address] [place] [address] [place] [address] PCP - General Internal Medicine 04/08/21 documented as of this encounter
--- OUTSIDE RECORDS SUMMARY | 2024-05-30 07:02 | External Medical Summary | Summary of Care ---
Author Name Unknown Organization [facility] Address [address] [place] [address] Phone [phone] Care Team Providers Care Residential Sales Rep Name Role Phone Chantel Girard Primary Care Provider Encounter Details Date Type Department Care Team (Late st Contact Info) Description 03/31/2024 Patient Reported Data Patient Survey Ortho OBERD Allergies Active Allergy Reactions Criticality Noted Date Comments Amoxicillin 09/26/2000 hives Gentamicin Sulfate Other (Please comment) High 12/29/2008 Itchy eyes Morphine And Codeine 11/10/1999 hydrocodone,itching Percocet 10/03/2002 Itch Tetanus Toxoid 09/25/2002 arm swollen,painful,fing ers numb Tramadol Hcl 09/26/2000 hives documented as of this encounter (statuses as of 03/31/2024) Medications Multiple Vitamins-Minerals (MULTIVITAMIN ADULT) CHEW Take by mouth. Act zaria Calcium Carbonate-Vitamin D 500-125 MG-UNIT Oral Tablet Take by mouth. Act zaria Tiotropium [place] Monohydrate 18 MCG Inhalation Capsule (Spiriva HandiHaler)Indicat [...] the morning. 100 Tablet 3 4 Active Spironolactone 25 MG Oral Tablet [...] 1,000 mcgIndications:S/P gastric bypass 1000 mcg IM [id number] 05/11/2022 02/12/2025 Active documented as of this encounter (statuses as of 03/31/2024) Active Problems Problem Noted Date Diagnosed Date [...] 12/29/2008 Intestinal postoperative nonabsorption 7 BLACKMAN RESEARCH OTHER*[id number] 10/29/2006 Acquired hypothyroidism 01/19/2004 GENERAL OSTEOARTHROSIS Vitamin D deficiency Ventral hernia without obstruction or gangrene documented as of this encounter (statuses as of 03/31/2024) Resolved Problems Problem Noted Date Diagnosed Date [...] 08/10/19 19 Coronary artery disease invo lving cheesh-na coronary artery of cheesh-na heart without angina pectoris 10/09/2017 08/09/2018 CKD [...] as of this encounter (statuses as of 03/31/2024) Immunizations Name Administration Dates Next Due COVID-19 mRNA, LNP-s, No Pre serve, 2-Dose Series (Moderna) 11/03/2020,10/05/2020 COVID-19, mRNA, LNP-s, PF, B ooster, 100mcg/0.5mg (Moderna) 06/14/2021 Covid-19, Mrna, Lnp-s, Pf, B ivalent, 30 Mcg, IM, 12 yrs and above ([employer] [place]) 05/16/2022 Pneumococcal Conjugate Vacc, 13 Valent (Prevnar) [...] file 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 file documented as of this encounter Plan of Treatment Upcoming Encounters Date Type Department Care Team (Late st Contact Info) Description 04/15/2024 2:30 PM EST Office Visit Family Medicine [address] [place] [phone] Chantel Girard, [address] [place] [address] 04/23/2024 9:00 AM EST Office Visit Orthopaedics [facility] [address] [place] [address] Kevin Manning MD [address] [place] [address] 06/24/2024 1:00 PM EST Nurse Only Ancillary [address] [place] [address] [place], Nurse Annual [address] [place] [address] Health Maintenance Due Date Last Done Comments [...] this encounter Medical Devices Implanted Type Area Disease Intervention Specialist Device Identifier Shelf Expiration Date Model / Serial / Lot Clip Quick 2.8mm 230cm - [id number] Implanted:Qty: 1 on 04/26/2021 by Alexx Avalos MD at ENDOSCOPY [facility] [employer] [facility] 09/18/2023 HX-202UR.A / / [id number] [...] 8:09 AM 04/25/2007 8:13 PM Care Teams Residential Sales Rep Relationship Specialty Start Date End Date Chantel Girard DO [address] [place] [address] [place] [address] PCP - General Internal Medicine 04/08/21 documented as of this encounter
--- OUTSIDE RECORDS SUMMARY | 2024-05-30 07:02 | External Medical Summary | Summary of Care ---
Author Name Unknown Organization [facility] Address [address] [place] [address] Phone [phone] Care Team Providers Care Thermal Cutter Helper Name Role Phone Chantel Girard Primary Care [...] Tablet Take by mouth. Act zaria Tiotropium [place] Monohydrate 18 MCG Inhalation Capsule (Spiriva HandiHaler)Indicat [...] 1,000 mcgIndications:S/P gastric bypass 1000 mcg IM [id number] 05/11/2022 02/12/2025 Active documented as of this [...] 12/29/2008 Intestinal postoperative nonabsorption 7 BLACKMAN RESEARCH OTHER*[id number] 10/29/2006 Acquired hypothyroidism 01/19/2004 GENERAL OSTEOARTHROSIS Vitamin [...] 08/10/19 19 Coronary artery disease invo lving [place] coronary artery of [place] heart without angina pectoris 10/09/2017 08/09/2018 CKD [...] 30 Mcg, IM, 12 yrs and above ([employer]) 05/16/2022 Pneumococcal Conjugate Vacc, 13 Valent (Prevnar) [...] file Not on file 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 [place] [address] Kevin Manning MD 132 [facility] [place] [address] 05/22/2024 11:20 AM EST NeuroDiagnostic Study Neurophysiology [facility] [address] [facility] [place] [address] Kolby Gardner, [address] [place] [address] 06/24/2024 1:00 PM EST Nurse Only Ancillary [address] [place] [address] [place], Nurse Annual Wellness [address] [place] [address] [place] [address] Health Maintenance Due Date Last Done Comments [...] this encounter Medical Devices Implanted Type Area Central Communications Specialist Device Identifier Shelf Expiration Date Model / Serial / Lot Clip Quick 2.8mm 230cm - [id number] Implanted:Qty: 1 on 04/26/2021 by Alexx Avalos MD at ENDOSCOPY [facility] [employer] 09/18/2023 HX-202UR.A / / [id number] documented as [...] 8:09 AM 04/25/2007 8:13 PM Care Teams Thermal Cutter Helper Relationship Specialty Start Date End Date Chantel Girard DO [address] [place] [address] [place] [address] PCP - General Internal Medicine 04/08/21 documented as of this encounter
--- OUTSIDE RECORDS SUMMARY | 2024-05-30 07:02 | External Medical Summary | Summary of Care ---
Author Name Unknown Organization [facility] Address [address] [place] [address] Phone [phone] Care Team Providers Care Conservation Policy Analyst Name Role Phone Chantel Girard DO Primary Care Provider Reason for Visit * Reason Onset Date Comments Appointment 03/31/2024 Encounter Details Date Type Department Care Team (Late st Contact Info) Description 03/31/2024 Telephone Neurophysiology [facility] [address] [facility] [place] [address] Specified, Zz No Resource [address] [place] [address] Appointment Allergies Active Allergy Reactions Criticality Noted Date [...] Tablet Take by mouth. Act zaria Tiotropium [place] Monohydrate 18 MCG Inhalation Capsule (Spiriva HandiHaler)Indicat [...] 1,000 mcgIndications:S/P gastric bypass 1000 mcg IM [id number] 05/11/2022 02/12/2025 Active documented as of this [...] 12/29/2008 Intestinal postoperative nonabsorption 7 BLACKMAN RESEARCH OTHER*[id number] 10/29/2006 Acquired hypothyroidism 01/19/2004 GENERAL OSTEOARTHROSIS Vitamin [...] 08/10/19 19 Coronary artery disease invo lving [place] coronary artery of [place]reaf[place] heart without angina pectoris 10/09/2017 08/09/2018 CKD [...] 30 Mcg, IM, 12 yrs and above ([employer]) 05/16/2022 Pneumococcal Conjugate Vacc, 13 Valent (Prevnar) [...] file Not 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 file documented as of this encounter Miscellaneous Notes * Telephone Encounter - Griselda Samaniego OSA - 03/31/2024 1:39 PM EST Left voicemail to call back to schedule EMG documented in this encounter Plan of Treatment Upcoming Encounters Date Type Department Care Team (Late st Contact Info) Description 04/15/2024 2:30 PM EST Office Visit Family Medicine [address] [place] [phone] Chant[address] [place] [address] 04/23/2024 9:00 AM EST Office Visit Orthopaedics [facility] [address] [place] [address] Kevin Manning MD [address] [place] [address] 05/22/2024 11:20 AM EST NeuroDiagnostic Study Neurophysiology [facility] [address] [place] [address] Kolby Gardner, [address] [place] [address] 06/24/2024 1:00 PM EST Nurse Only Ancillary [address] [place] [address] [place], Nurse Annual Wellness [address] [place] [address] [place] [address] Health Maintenance Due Date Last Done Comments [...] this encounter Medical Devices Implanted Type Area Platform Attendant Device Identifier Shelf Expiration Date Model / Serial / Lot Clip Quick 2.8mm 230cm - [id number] Implanted:Qty: 1 on 04/26/2021 by Alexx Avalos MD at ENDOSCOPY [facility] [employer] 09/18/2023 HX-202UR.A / / [id number] documented as [...] 8:09 AM 04/25/2007 8:13 PM Care Teams Conservation Policy Analyst Relationship Specialty Start Date End Date Chantel Girard DO [address] [place] [address] [place] [address] PCP - General Internal Medicine 04/08/21 documented as of this encounter
--- OUTSIDE RECORDS SUMMARY | 2024-05-30 07:02 | External Medical Summary | Summary of Care ---
Author Name Unknown Organization [facility] Address [address] [place] [address] Phone [phone] Care Team Providers Care Paramedic Instructor Name Role Phone Chantel Girard Primary Care [...] Tablet Take by mouth. Act zaria Tiotropium [place] Monohydrate 18 MCG Inhalation Capsule (Spiriva HandiHaler)Indicat [...] 1,000 mcgIndications:S/P gastric bypass 1000 mcg IM [id number] 05/11/2022 02/12/2025 Active documented as of this [...] 12/29/2008 Intestinal postoperative nonabsorption 7 BLACKMAN RESEARCH OTHER*[id number] 10/29/2006 Acquired hypothyroidism 01/19/2004 GENERAL OSTEOARTHROSIS Vitamin [...] 08/10/19 19 Coronary artery disease invo lving [place] coronary artery of [place] heart without angina pectoris 10/09/2017 08/09/2018 CKD [...] 30 Mcg, IM, 12 yrs and above ([employer]) 05/16/2022 Pneumococcal Conjugate Vacc, 13 Valent (Prevnar) [...] file 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 on file documented as of this encounter Plan of Treatment Upcoming Encounters Date Type Department Care Team (Late st Contact Info) Description 04/15/2024 2:30 PM EST Office Visit Family Medicine [address] [place] [phone] [place] [address] 04/23/2024 9:00 AM EST Office Visit Orthopaedics [facility] [address] [facility] [place] [address] Kevin Manning MD 132 [facility] [place] [address] 05/22/2024 11:20 AM EST NeuroDiagnostic Study Neurophysiology [facility] [address] [facility] [place] [address] Kolby Gardner, [address] [address] 06/24/2024 1:00 PM EST Nurse Only Ancillary [address] [place] [address] [place], Nurse Annual [address] [place] [address] Health Maintenance Due Date Last Done Comments Zoster Vaccines (1 of 2) 1996 COVID-19 Vaccine ( season) 2024 05/16/2022, 06/14/2021, 11/03/2020, Additional history exists G[facility] 01/30/2024 01/29/2023, 02/18, 02/17/2022, Additional history exists [facility] 02/21/2024 02/20/2023, 01/21, 11/30/2020, Additional history [...] this encounter Medical Devices Implanted Type Area Web Coordinator Device Identifier Shelf Expiration Date Model / Serial / Lot Clip Quick 2.8mm 230cm - [id number] Implanted:Qty: 1 on 04/26/2021 by Alexx Avalos MD at ENDOSCOPY [facility] 09/18/2023 HX-202UR.A / / [id number] documented [...] 8:09 AM 04/25/2007 8:13 PM Care Teams Paramedic Instructor Relationship Specialty Start Date End Date Chantel Girard DO [address] [place] [address] [place] [address] PCP - General Internal Medicine 04/08/21 documented as of this encounter
--- OUTSIDE RECORDS SUMMARY | 2024-05-30 07:03 | External Medical Summary | Summary of Care ---
Author Name Unknown Organization [facility] Address [address] [place] [address] Phone [phone] Care Team Providers Care Material Dispatcher Name Role Phone Chantel Girard DO Primary Care Provider Reason for Referral * Evaluate & Treat - Unlimited Visits (Within 10 days (routine)) - Authorized Specialty Diagnoses / Procedures Referred By Maribell escobar Referred To Contact Sports Medicine / Orthopedics Diagnoses Chronic pain of left knee Chantel Girard DO [address] [place] [address] [place] [address] Phone: tel: fax: Referral ID Status Reason Start Date Expiration Date Visits Requested Visits Authorized [id number] Authorized Specialty Services Required 03/28/[phone] Question Answer Referral Priority Within 10 days (routine) Where should this appointment be scheduled? [facility] What body part is the patient being seen for? Thigh/Knee What condition is the patient being seen for? Arthritis including related infection Comments Dr. Manning Reason for Visit * Reason Comments Acute Pt c/o arthritis in left shoulder, saw Pam Oshea, took prednisone, but the pain has returned and wants to discuss injection; pain in the back of left knee, injured it in November. Encounter Details Date Type Department Care Team (Late st Contact Info) Description 03/28/2024 3:10 PM EST Office Visit Family Medicine [address] [place] [phone] Chantel Girard, [address] [place] [address] Bilateral arm numbness and tingling while sleeping*; Depression with anxiety; Acquired hypothyroidism; HTN, goal below 130/80; Pain in both feet; Right wrist pain; Chronic pain of left knee; Acute pain of right shoulder Allergies Active Allergy Reactions Criticality Noted Date [...] Tablet Take by mouth. Act zaria Tiotropium [place] Monohydrate 18 MCG Inhalation Capsule (Spiriva HandiHaler)Indica tions:Asthma, moderate persistent INHALE THE CONTENTS OF 1 CAPSULE VIA HANDIHALER ONCE A DAY (DO NOT SWALLOW CAPSULE) 90 Capsule 1 01/28/20 24 3:15 PM EDT 2024 Active Fluticasone-Salme terol 250-50 MCG/ACT Inhalation Aerosol Powder Breath Activated (Advair Diskus) INHALE ONE PUFF BY MOUTH EVERY MORNING & ONE PUFF BEFORE BEDTIME 180 Each 1 02/21/20 24 7:40 AM EDT Active Alendronate Sodium 70 MG Oral Tablet (Fosamax) Take 1 Tablet by mouth once a week. with 8 oz. water 30 minutes before first meal of the day. Remain upright for 30 min after taking tablet. 12 Tablet 3 024 Active Citalopram Hydrobromide 20 MG Oral Tablet (CeleXA)Indicatio ns:Depression with anxiety Take 1 Tablet by mouth in the morning. 100 Tablet 3 Active Levothyroxine Sodium 88 MCG Oral Tablet (Levoxyl)Indicati ons:Acquired hypothyroidism Take 1 Tablet by mouth daily first thing in the morning. 100 Tablet 3 Active Losartan Potassium 50 MG Oral Tablet (Cozaar)Indicatio ns:HTN, goal below 130/80 Take 1 Tablet by mouth in the morning. 100 Tablet 3 Active Spironolactone 25 MG Oral Tablet (Aldactone) Take 1 Tablet by mouth in the morning. 100 Tablet 3 Active Diclofenac Sodium 1 % External Gel (Voltaren)Indicat ions:Pain in both feet,Right wrist pain Apply topically to affected area 2 times a day. Apply to right wrist and feet twice daily as needed. 100 g 1 Active Zoster Vac Recomb Adjuvanted 50 MCG/0.5ML Intramuscular Suspension Reconstituted (Shingrix) Inject 0.5 mL into a large muscle now and repeat dose in 60 to 180 days 1 Each 1 Active Spironolactone 25 MG Oral Tablet (Aldactone) TAKE ONE TABLET BY MOUTH EVERY MORNING 90 Tablet 3 03/03/20 24 9:00 AM EDT 023 2023 Discontinued(R efill) Alendronate Sodium 70 MG Oral Tablet (Fosamax) Take 1 Tablet by mouth once a week. with 8 oz. water 30 minutes before first meal of the day. Remain upright for 30 min after taking tablet. 12 Tablet 3 01/28/20 24 8:59 AM EDT 024 2023 Discontinued(R efill) Losartan Potassium 50 MG Oral Tablet (Cozaar)Indicatio ns:HTN, goal below 130/80 TAKE ONE TABLET BY MOUTH EVERY MORNING 90 Tablet 3 01/12/20 24 2:10 PM EDT 024 2023 Discontinued(R efill) Diclofenac Sodium 1 % External Gel (Voltaren)Indicat ions:Pain in both feet,Right wrist pain Apply topically to affected area 2 times a day. Apply to right wrist and feet twice daily as needed. 100 g 1 01/22/20 24 12:40 PM EDT 024 2023 Discontinued(R efill) Levothyroxine Sodium 88 MCG Oral Tablet (Levoxyl)Indicati ons:Acquired hypothyroidism TAKE 1 TABLET BY MOUTH DAILY AT LEAST 30 MINUTES PRIOR TO FIRST MEAL OF THE DAY OR OTHER MEDICATIONS 100 Tablet 1 02/21/20 24 5:51 PM EDT 024 2023 Discontinued(R efill) Citalopram Hydrobromide 20 MG Oral Tablet (CeleXA)Indicatio ns:Depression with anxiety TAKE ONE TABLET BY MOUTH EVERY MORNING 100 Tablet 1 02/21/20 24 5:51 PM EDT 024 2023 Discontinued(R efill) predniSONE 20 MG Oral Tablet (Deltasone)Indica tions:Acute pain of right shoulder 2 tablets daily for 5 days then 1 tablet daily 15 Tablet 024 2023 Discontinued Hospital, Clinic, or Other Facility Administered Medication Ordered Dose Route Frequency Start Date End Date Status albuterol sulfate (PROVENTIL) (2.5 MG/3ML) 0.083% inhalation solution 2.5 mgIndications:COPD, moderate (HCC) 2.5 mg NEBULIZER Q4H PRN 04/19/2017 Active vitamin b-12 (Cyanocobalamin) inj 1,000 mcgIndications:S/P gastric bypass 1000 mcg IM [id number] 05/11/2022 02/12/2025 Active lidocaine 2 % inj 40 mgIndications:Acute pain of right shoulder 40 mg IJ ONCE 03/28/2024 03/28/2024 En ded methylPREDNISolone acetate (Depo-Medrol) 40 MG/ML inj 40 mgIndications:Acute pain of right shoulder 40 mg IX ONCE 03/28/2024 03/28/2024 En ded documented as of this encounter (statuses as [...] 12/29/2008 Intestinal postoperative nonabsorption 7 BLACKMAN RESEARCH OTHER*[id number] 10/29/2006 Acquired hypothyroidism 01/19/2004 GENERAL OSTEOARTHROSIS Vitamin [...] 08/10/19 19 Coronary artery disease invo lving [place] coronary artery of [place] heart without angina pectoris 10/09/2017 08/09/2018 CKD [...] Muscle cramp, nocturnal 12/24/201203/22 Small bowel obstruction 03/06/2012 11/10/2011 Thoracic degenerative disc disease 02/29/2012 04/11/2017 Major [...] 30 Mcg, IM, 12 yrs and above (Pfizer) 05/16/2022 Diptheria/Tetanus (Adult) 09/10/2002 Influenza, Whole Virus 03/15/1999 Pneumococcal Conjugate Vacc, 13 Valent (Prevnar) 08/19/2014 Pneumococcal Polysaccharide PPV23 (Pneumovax) 02/07/2012,02/14/2006 Season Influenza, Quad, PF, Adjuvanted, 65+ Yrs, IM (FLUAD) 02/02/2020 Seasonal Influenza Vac., MDV , IM, 0.5 mL (Fluzone) 03/04/2013,02/07/2012,02/06/2011,03/21,02/24/2009,04/02/2008,04/02/2007 ,05/16/2006,05/17/2005,04/28/2003,03/21,06/14/2001 Seasonal Influenza Virus Vac cine, Unspecified Formulation [...] file Not on file 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 Not on file Not on file documented as of this encounter Last Filed Vital Signs Vital Sign Reading Time Taken Comments Blood Pressure 112/66 03/28/2024 3:05 PM EST Pulse 58 03/28/2024 3:05 PM EST Temperature - - Respiratory Rate - - Oxygen Saturation 97% 03/28/2024 3:05 PM EST Inhaled Oxygen Concentration - - Weight 100.2 kg (221 lb) 03/28/2024 3:05 PM EST Height - - Body Mass Index 36.78 09/05/2023 2:17 PM EDT documented in this encounter Progress Notes * Chantel Girard, - 03/28/2024 3:32 PM ESTAssociated Order(s): Arthrocentesis Post-Procedure Diagnose(s): Acute pain of right shoulder Mira Callaway is a 78 year old female patient. ICD-10-CM 1. Bilateral arm numbness and tingling while sleeping R20.0 R20.2 2. Depression with anxiety F41.8 3. Acquired hypothyroidism E03.9 4. HTN, goal below 130/80 I10 5. Pain in both feet M79.671 M79.672 6. Right wrist pain M25.531 7. Chronic pain of left knee M25.562 G89.29 Past Medical History: Diagnosis Date Abnormal blood chemistry 05/2000 hyperglycemia Abnormal results of liver function studies 08/1999 Adenomatous polyp of colon Allergic rhinitis due to pollen 09/09/2015 Asthma Asthma with exacerbation 08/02/2018 Asthma, moderate persistent 05/27/2013 Benign hypertension with CKD (chronic kidney disease) stage III (HCC) Benign neoplasm of colon 09/27/2009 8 mm polyp- tubulovillous adenoma- repeat in one yr div Carpal tunnel syndrome Cervical spondylosis 09/25/2002 Chronic bronchitis, obstructive (HCC) COPD W BRONCHITIS,EMPHYSEMATOS CKD (chronic kidney disease), stage III (HCC) 08/15/2017 GFR 52.2 Coronary artery disease Degeneration of lumbosacral intervertebral disc 06/29/2009 Depression with anxiety 03/04/2015 Depressive disorder, not elsewhere classified 07/11/2011 DM type 2, not at goal (HCC) 10/2005 Essential hypertension with goal blood pressure less than 140/90 03/13/2016 Generalized osteoarthritis knees Goiter Gout with other specified manifestations(274.89) 10/1983 Hernia HTN, goal below 140/90 Hyperlipidemia LDL goal <100 12/20/2016 Hypertension Influenza A 08/18/2015 nasal swab Leg cramps, sleep related 11/01/2010 Localized, primary osteoarthritis of ankle or foot 11/29/2006 Metabolic syndrome Mixed dyslipidemia Muscle cramp, nocturnal 12/24/2012 BLACKMAN (nonalcoholic steatohepatitis) 02/29/2004 BLACKMAN RESEARCH OTHER*[id number] 10/29/2006 Obesity, Class II, BMI 35.0-39.9, with comorbidity (see actual BMI) 03/04/2015 Osteoporosis 06/22/2023 Patient did start fosamax recently Other bursitis disorders 11/1999 right greater trochanter Other chronic nonalcoholic liver disease 11/2000 nonalcoholic steatohepatitis by biopsy Other chronic nonalcoholic liver disease 04/26/2007 CIRRHOSIS FATTY - mild protal fibrosis on liver biopsy Other specified acquired hypothyroidism Peptic ulcer PUD Pleural effusion Primary osteoarthritis of right knee 10/09/2018 Sleep apnea, obstructive Thoracic and lumbosacral neuritis 12/04/2000 Thoracic degenerative disc disease 02/29/2012 Tubular adenoma of colon Umbilical hernia 10/22/2012 Ventral hernia without obstruction or gangrene 08/18/2017 Vitamin D deficiency 07/06/2009 Blood pressure 112/66, pulse 58, weight 100.2 kg (221 lb), SpO2 97%. Arthrocentesis Date/Time: 03/28/2024 3:52 PM Performed by: Chantel Girard DO Authorized by: Chantel Girard DO Indications: pain Body area: shoulder Joint: right shoulder Local anesthesia used: yes Anesthesia: Local anesthesia used: yes Local Anesthetic: topical anesthetic Sedation: Patient sedated: no Needle size: 22 G Ultrasound guidance: no Approach: posterior Methylprednisolone amount: 40 mg Lidocaine 2% amount: 2 mL Patient tolerance: patient tolerated the procedure well with no immediate complications Chantel Girard DO 03/28/2024 Subjective: Mira Callaway is a 78 year old female. Chief Complaint Patient presents with Acute Pt c/o arthritis in left shoulder, saw Pam Oshea, took prednisone, but the pain has returned and wants to discuss injection; pain in the back of left knee, injured it in November. HPI: Mira Callaway presents today for evaluation of right shoulder pain. She was seen for this last month. Had x-rays which showed arthritis. She was put on prednisone which helped temporarily but thepain has now recurred. She is interested in getting an injection. She also gets some numbness in her bilateral arms. This can occur when she reads the paper as well as when she sleeps. No neck pain. She has had chronic pain in her left knee. Saw Dr. Manning for this in the past and had injections and gel shots. She has a lump behind her left knee now which is painful. The previous injections she had worked quite well but seem to be wearing off now. She also sustained a fall. Knee is quite painful at times. PMH: Patient Active Problem List Diagnosis Acquired hypothyroidism GENERAL OSTEOARTHROSIS Intestinal postoperative nonabsorption Vitamin B deficiency Vitamin D deficiency BLACKMAN RESEARCH OTHER*[id number] Umbilical hernia Depression with anxiety Arthritis of [...] 500-125 MG-UNIT Oral Tablet Take by mouth. Spironolactone 25 MG Oral Tablet (Aldactone) TAKE ONE TABLET BY MOUTH EVERY MORNING 90 Tablet 3 Alendronate Sodium 70 MG Oral Tablet (Fosamax) Take 1 Tablet by mouth once a week. with 8 oz. water30 minutes before first meal of the day. Remain upright for 30 min after taking tablet. 12 Tablet 3 Losartan Potassium 50 MG Oral Tablet (Cozaar) TAKE ONE TABLET BY MOUTH EVERY MORNING 90 Tablet 3 Diclofenac Sodium 1 % External Gel (Voltaren) Apply topically to affected area 2 times a day. Applyto right wrist and feet twice daily as needed. 100 g 1 Tiotropium [place] Monohydrate 18 MCG Inhalation Capsule (Spiriva HandiHaler) INHALE THE CONTENTS OF 1 CAPSULE VIA HANDIHALER ONCE A DAY (DO NOT SWALLOW CAPSULE) 90 Capsule 1 Levothyroxine Sodium 88 MCG Oral Tablet (Levoxyl) TAKE 1 TABLET BY MOUTH DAILY AT LEAST 30 MINUTES PRIOR TO FIRST MEAL OF THE DAY OR OTHER MEDICATIONS 100 Tablet 1 Citalopram Hydrobromide 20 MG Oral Tablet (CeleXA) TAKE ONE TABLET BY MOUTH EVERY MORNING 100 Tablet 1 Fluticasone-Salmeterol 250-50 MCG/ACT Inhalation Aerosol Powder Breath Activated (Advair Diskus) INHALE ONE PUFF BY MOUTH EVERY MORNING & ONE PUFF BEFORE BEDTIME 180 Each 1 predniSONE 20 MG Oral Tablet (Deltasone) 2 tablets daily for 5 days then 1 tablet daily (Patient not taking: Reported on 03/28/2024) 15 Tablet 0 Current Facility-Administered Medications Medication Dose Route Frequency [...] swollen,painful,fingers numb Tramadol Hcl hives Objective: BP 112/66 | Pulse 58 | Wt 100.2 kg (221 lb) | SpO2 97% | BMI 36.78 kg/m | BSA 2.14 m General: alert, healthy, no distress, well nourished, and well developed Extremities: she is able to move the arm through AROM, but has pain with extremes of motion, there is also pain behind the distal left hamstring Neuro Exam: alert & oriented x 3 with fluent speech, no focal motor/sensory deficits, gait is antalgic Skin: skin color, texture, turgor are normal, no rashes or significant lesions ASSESSMENT/PLAN: Bilateral arm numbness and tingling while sleeping (Primary) - - EMG Depression with anxiety - Citalopram Hydrobromide 20 MG Oral Tablet (CeleXA); Take 1 Tablet by mouth in the morning. Acquired hypothyroidism - Levothyroxine Sodium 88 MCG Oral Tablet (Levoxyl); Take 1 Tablet by mouth daily first thing in the morning. HTN, goal below 130/80 - Losartan Potassium 50 MG Oral Tablet (Cozaar); Take 1 Tablet by mouth in the morning. Pain in both feet - Diclofenac Sodium 1 % External Gel (Voltaren); Apply topically to affected area 2 times a day. Apply to right wrist and feet twice daily as needed. Right wrist pain - Diclofenac Sodium 1 % External Gel (Voltaren); Apply topically to affected area 2 times a day. Apply to right wrist and feet twice daily as needed. Chronic pain of left knee - ? If this is more of a distal hamstring problem than a knee OA problem. - SPORTS MEDICINE REFERRAL OP Acute pain of right shoulder - lidocaine 2 % inj 40 mg - methylPREDNISolone acetate (Depo-Medrol) 40 MG/ML inj 40 mg Other orders - Alendronate Sodium 70 MG Oral Tablet (Fosamax); Take 1 Tablet by mouth once a week. with 8 oz. water 30 minutes before first meal of the day. Remain upright for 30 min after taking tablet. - Spironolactone 25 MG Oral Tablet (Aldactone); Take 1 Tablet by mouth in the morning. - Zoster Vac Recomb Adjuvanted 50 MCG/0.5ML Intramuscular Suspension Reconstituted (Shingrix); Inject 0.5 mL into a large muscle now and repeat dose in 60 to 180 days Follow Up: Return for as scheduled. | For: as scheduled Chantel Girard DO documented in this encounter Plan of Treatment Upcoming Encounters Date Type Department Care Team (Late st Contact Info) Description 04/15/2024 2:30 PM EST Office Visit Family Medicine [address] [place] [phone] Chantel Girard DO [address] [place] [address] [place] [address] 06/24/2024 1:00 PM EST Nurse Only Ancillary [address] [place] [address] [place], Nurse [address] [place] [address] Scheduled Referrals Name Type Priority Associated Diagnoses Orde r Schedule SPORTS MEDICINE REFERRAL OP Referral Within 10 days (routine) Chronic pain of left knee Ordered: 03/28/2024 Health Maintenance Due Date Last Done Comments [...] this encounter Medical Devices Implanted Type Area Automobile Mechanic Helper Device Identifier Shelf Expiration Date Model / Serial / Lot Clip Quick 2.8mm 230cm - [id number] Implanted:Qty: 1 on 04/26/2021 by Alexx Avalos MD at ENDOSCOPY [facility] [employer] 09/18/2023 [id number]-202UR.A / / [id number] documented as of this encounter Procedures Procedure Name Priority Date/Time Associated Diagnosis Comments [place] ARTHROCENTESIS ASPIR&/INJ MAJOR JT/BURSA W/O US Routine 03/28/2024 3:52 PM EST Acute pain of right shoulder documented in this encounter Results * [place] ARTHROCENTESIS ASPIR&/INJ MAJOR JT/BURSA W/O US (03/28/2024 3:52 PM EST) Narrative Chantel Girard DO - 03/28/2024 3:52 PM EST Chantel Girard DO 03/28/2024 4:28 PM Arthrocentesis Date/Time: 03/28/2024 3:52 PM Performed by: Chantel Girard DO Authorized by: Chantel Girard DO Indications: pain Body area: shoulder Joint: right shoulder Local anesthesia used: yes Anesthesia: Local anesthesia used: yes Local Anesthetic: topical anesthetic Sedation: Patient sedated: no Needle size: 22 G Ultrasound guidance: no Approach: posterior Methylprednisolone amount: 40 mg Lidocaine 2% amount: 2 mL Patient tolerance: patient tolerated the procedure well with no immediate complications Chantel Girard DO PROCDOC FORM Final Result documented in this encounter Visit Diagnoses Diagnosis Bilateral arm numbness and tingling while sleeping- Primary Depression with anxiety Dysthymic disorder Acquired hypothyroidism Unspecified hypothyroidism HTN, goal below 130/80 Unspecified essential hypertension Pain in both feet Pain in limb Right wrist pain Pain in joint, forearm Chronic pain of left knee Pain in joint, lower leg Acute pain of right shoulder documented in this encounter Administered Medications Inactive Administered Medications - up to 3 most recent administrations Medication Order MAR Action Action Date Dose Rate Site lidocaine 2 % inj 40 mg 40 mg (2 mL), Injection, ONCE, On Sun03/28/24 at 1645, For 1 doseIndications:Acute pain of right shoulder Given 03/28/2024 3:00 AM EST 40 mg methylPREDNISolone acetate (Depo-Medrol) 40 MG/ML inj 40 mg 40 mg, Intra-Articular, ONCE, On Sun03/28/24 at 1645, For 1 doseIndications:Acute pain of right shoulder Given 03/28/2024 3:00 AM EST 40 mg documented in this encounter Advance Directives * [...] 8:09 AM 04/25/2007 8:13 PM Care Teams Material Dispatcher Relationship Specialty Start Date End Date Chantel Girard DO [address] [place] [address] [place] [address] PCP - General Internal Medicine 04/08/21 documented as of this encounter"
--- OUTSIDE RECORDS SUMMARY | 2024-05-30 07:03 | External Medical Summary | Summary of Care ---
Author Name Unknown Organization [facility] Address [address] [place] [address] Phone [phone] Care Team Providers Care Migratory Worker Name Role Phone Chantel Girard Primary Care [...] Tablet Take by mouth. Act zaria Tiotropium [place] Monohydrate 18 MCG Inhalation Capsule (Spiriva HandiHaler)Indicat [...] 1,000 mcgIndications:S/P gastric bypass 1000 mcg IM [id number] 05/11/2022 02/12/2025 Active documented as of this [...] 12/29/2008 Intestinal postoperative nonabsorption 7 BLACKMAN RESEARCH OTHER*[id number] 10/29/2006 Acquired hypothyroidism 01/19/2004 GENERAL OSTEOARTHROSIS Vitamin [...] 08/10/19 19 Coronary artery disease invo lving [place] coronary artery of [place] heart without angina pectoris 10/09/2017 08/09/2018 CKD [...] 30 Mcg, IM, 12 yrs and above ([employer]) 05/16/2022 Pneumococcal Conjugate Vacc, 13 Valent (Prevnar) [...] file Not on file 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 Not on file documented as of this encounter Plan of Treatment Upcoming Encounters Date Type Department Care Team (Late st Contact Info) Description 04/15/2024 2:30 PM EST Office Visit Family Medicine [address] [place] [phone] Chantel Girard, [address] [place] [address] 04/23/2024 9:00 AM EST Office Visit Orthopaedics [facility] [address] [place] [address] Kevin Manning MD [address] [place] [address] 06/24/2024 1:00 PM EST Nurse Only Ancillary [address] [place] [address] [place], Nurse Annual [address] [place] [address] Health Maintenance Due Date Last Done Comments [...] this encounter Medical Devices Implanted Type Area Custodian Manager Device Identifier Shelf Expiration Date Model / Serial / Lot Clip Quick 2.8mm 230cm - [id number] Implanted:Qty: 1 on 04/26/2021 by Alexx Avalos MD at ENDOSCOPY [facility] [employer] [facility] 09/18/2023 [id number]-202UR.[id number] / / [...] 8:09 AM 04/25/2007 8:13 PM Care Teams Migratory Worker Relationship Specialty Start Date End Date Chantel Girard DO [address] [place] [address] [place] [address] PCP - General Internal Medicine 04/08/21 documented as of this encounter
--- OUTSIDE RECORDS SUMMARY | 2024-05-30 07:03 | External Medical Summary | Summary of Care ---
Author Name Unknown Organization [facility] Address [address] [place] [address] Phone [phone] Care Team Providers Care Actuarial Associate Name Role Phone Chantel Girard Primary Care [...] Tablet Take by mouth. Act zaria Tiotropium [place] Monohydrate 18 MCG Inhalation Capsule (Spiriva HandiHaler)Indicat [...] 1,000 mcgIndications:S/P gastric bypass 1000 mcg IM [id number] 05/11/2022 02/12/2025 Active documented as of this [...] 12/29/2008 Intestinal postoperative nonabsorption 7 BLACKMAN RESEARCH OTHER*[id number] 10/29/2006 Acquired hypothyroidism 01/19/2004 GENERAL OSTEOARTHROSIS Vitamin [...] 08/10/19 19 Coronary artery disease invo lving [place] coronary artery of [place] heart without angina pectoris 10/09/2017 08/09/2018 CKD [...] 30 Mcg, IM, 12 yrs and above ([employer]) 05/16/2022 Pneumococcal Conjugate Vacc, 13 Valent (Prevnar) [...] file Not 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 Not on file documented as of this encounter Plan of Treatment Upcoming Encounters Date Type Department Care Team (Late st Contact Info) Description 04/15/2024 2:30 PM EST Office Visit Family Medicine [address] [place] [phone] Chantel Girard, [address] [place] [address] 04/23/2024 9:00 AM EST Office Visit Orthopaedics [facility] [address] [place] [address] Kevin Manning MD [address] [place] [address] 06/24/2024 1:00 PM EST Nurse Only Ancillary [address] [place] [address] [place], Nurse Annual [address] [place] [address] Health Maintenance Due Date Last Done Comments [...] this encounter Medical Devices Implanted Type Area Senior Tax Analyst Device Identifier Shelf Expiration Date Model / Serial / Lot Clip Quick 2.8mm 230cm - [id number] Implanted:Qty: 1 on 04/26/2021 by Alexx vAalos MD at ENDOSCOPY [facility] [employer] [facility] 09/18/2023 [id number]-202UR.A / / [id number] documented as [...] 8:09 AM 04/25/2007 8:13 PM Care Teams Actuarial Associate Relationship Specialty Start Date End Date Chantel Girard DO [address] [place] [address] [place] [address] PCP - General Internal Medicine 04/08/21 documented as of this encounter
--- OUTSIDE RECORDS SUMMARY | 2024-05-30 07:03 | External Medical Summary | Summary of Care ---
Author Name Unknown Organization [facility] Address [address] [place] [address] Phone [phone] Care Team Providers Care Brush Or Broom Cutter Name Role Phone Chantel Girard Primary Care [...] Tablet Take by mouth. Act zaria Tiotropium [place] Monohydrate 18 MCG Inhalation Capsule (Spiriva HandiHaler)Indicat [...] 1,000 mcgIndications:S/P gastric bypass 1000 mcg IM [id number] 05/11/2022 02/12/2025 Active documented as of this [...] 12/29/2008 Intestinal postoperative nonabsorption 7 BLACKMAN RESEARCH OTHER*[id number] 10/29/2006 Acquired hypothyroidism 01/19/2004 GENERAL OSTEOARTHROSIS Vitamin [...] 08/10/19 19 Coronary artery disease invo lving [place] coronary artery of [place] heart without angina pectoris 10/09/2017 08/09/2018 CKD [...] 30 Mcg, IM, 12 yrs and above (Bundle) 05/16/2022 Pneumococcal Conjugate Vacc, 13 Valent (Prevnar) [...] file Not on file 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 Not on file Not on file documented as of this encounter Plan of Treatment Upcoming Encounters Date Type Department Care Team (Late st Contact Info) Description 04/15/2024 2:30 PM EST Office Visit Family Medicine [address] [place] [phone] Chantel Girard, [address] [place] [address] 04/23/2024 9:00 AM EST Office Visit Orthopaedics [facility] [address] [place] [address] Kevin Manning MD [address] [place] [address] 06/24/2024 1:00 PM EST Nurse Only Ancillary [address] [place] [address] [place], Nurse Annual [address] [place] [address] Health Maintenance Due Date Last Done Comments [...] this encounter Medical Devices Implanted Type Area Trumpet Teacher Device Identifier Shelf Expiration Date Model / Serial / Lot Clip Quick 2.8mm 230cm - [id number] Implanted:Qty: 1 on 04/26/2021 by Alexx Avalos MD at ENDOSCOPY [facility] [employer] [facility] 09/18/2023 [id number]-202UR.[id number] / [id number] [...] 8:09 AM 04/25/2007 8:13 PM Care Teams Brush Or Broom Cutter Relationship Specialty Start Date End Date Chantel Girard DO [address] [place] [address] [place] [address] PCP - General Internal Medicine 04/08/21 documented as of this encounter
--- OUTSIDE RECORDS SUMMARY | 2024-05-30 07:03 | External Medical Summary | Summary of Care ---
Author Name Unknown Organization [facility] Address [address] [place] [address] Phone [phone] Care Team Providers Care In Service Education Teacher Name Role Phone Chantel Girard Primary Care Provider [phone] Encounter Details Date Type Department Care Team [...] Tablet Take by mouth. Act zaria Tiotropium [place] Monohydrate 18 MCG Inhalation Capsule (Spiriva HandiHaler)Indicat [...] 1,000 mcgIndications:S/P gastric bypass 1000 mcg IM [id number] 05/11/2022 02/12/2025 Active documented as of this [...] 12/29/2008 Intestinal postoperative nonabsorption 7 BLACKMAN RESEARCH OTHER*[id number] 10/29/2006 Acquired hypothyroidism 01/19/2004 GENERAL OSTEOARTHROSIS Vitamin [...] 08/10/19 19 Coronary artery disease invo lving [place] coronary artery of [place] heart without angina pectoris 10/09/2017 08/09/2018 CKD [...] 30 Mcg, IM, 12 yrs and above ([employer]) 05/16/2022 Pneumococcal Conjugate Vacc, 13 Valent (Prevnar) [...] file Not on file 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 [address] [place] [address] Kevin Manning MD [address] [place] [address] 06/24/2024 1:00 PM EST Nurse Only Ancillary [address] [place] [address] [place], Nurse Annual [address] [place] [address] Health Maintenance Due Date Last Done Comments [...] this encounter Medical Devices Implanted Type Area Shirt Ironer Device Identifier Shelf Expiration Date Model / Serial / Lot Clip Quick 2.8mm 230cm - [id number] Implanted:Qty: 1 on 04/26/2021 by Alexx Avalos MD at ENDOSCOPY [facility] [email or web address] [facility] 09/18/2023 [id number]-202UR.[id number] / [...] 8:09 AM 04/25/2007 8:13 PM Care Teams In Service Education Teacher Relationship Specialty Start Date End Date Chantel Girard DO [address] [place] [address] [place] [address] PCP - General Internal Medicine 04/08/21 documented as of this encounter
--- OUTSIDE RECORDS SUMMARY | 2024-05-30 07:03 | External Medical Summary | Summary of Care ---
Author Name Unknown Organization [facility] Address [address] [place] [address] Phone [phone] Care Team Providers Care Machine Operator Hop Worker Name Role Phone Chantel Girard Primary [...] Tablet Take by mouth. Act zaria Tiotropium [place] Monohydrate 18 MCG Inhalation Capsule (Spiriva HandiHaler)Indicat [...] 1,000 mcgIndications:S/P gastric bypass 1000 mcg IM [id number] 05/11/2022 02/12/2025 Active documented as of this [...] 12/29/2008 Intestinal postoperative nonabsorption 7 BLACKMAN RESEARCH OTHER*[id number] 10/29/2006 Acquired hypothyroidism 01/19/2004 GENERAL OSTEOARTHROSIS Vitamin [...] 08/10/19 19 Coronary artery disease invo lving [place] coronary artery of [place] heart without angina pectoris 10/09/2017 08/09/2018 CKD [...] 30 Mcg, IM, 12 yrs and above ([employer]) 05/16/2022 Pneumococcal Conjugate Vacc, 13 Valent (Prevnar) [...] file Not on file 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 on 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 Not on file documented as of this encounter Plan of Treatment Upcoming Encounters Date Type Department Care Team (Late st Contact Info) Description 04/15/2024 2:30 PM EST Office Visit Family Medicine [address] [place] [phone] Chantel Girard, [address] [place] [address] 04/23/2024 9:00 AM EST Office Visit Orthopaedics [facility] [address] [place] [address] Kevin Manning MD [address] [place] [address] 06/24/2024 1:00 PM EST Nurse Only Ancillary [address] [place] [address] [place], Nurse Annual [address] [place] [address] Health Maintenance Due Date Last Done Comments [...] this encounter Medical Devices Implanted Type Area Caddy Master Device Identifier Shelf Expiration Date Model / Serial / Lot Clip Quick 2.8mm 230cm - [id number] Implanted:Qty: 1 on 04/26/2021 by Alexx Avalos MD at ENDOSCOPY [facility] [employer] [facility] 09/18/2023 [id number]-202UR.[id number] / [...] 8:09 AM 04/25/2007 8:13 PM Care Teams Machine Operator Hop Worker Relationship Specialty Start Date End Date Chantel Girard DO [address] [place] [address] [place] [address] PCP - General Internal Medicine 04/08/21 documented as of this encounter
--- OUTSIDE RECORDS SUMMARY | 2024-05-30 07:04 | External Medical Summary | Summary of Care ---
Author Name Unknown Organization [facility] Address [address] [place] [address] Phone [phone] Care Team Providers Care Screener And Blender Name Role Phone Chantel Girard Primary Care Provider [phone] Reason for Visit * Reason Onset Date Comments Medication Administration B12 Medication Administration 02/14/2024 Flu an d/or Pneumo Inj Encounter Details Date Type Department Care Team (Late st Contact Info) Description 02/14/2024 1:00 PM EDT Nurse Only Ancillary [address] [place] [address] [place], Nurse [address] [place] [address] Medication Administration (B12 ); Medicati... Allergies Active Allergy Reactions Criticality Noted Date Comments Amoxicillin 09/26/2000 hives Gentamicin Sulfate Other (Please comment) High 12/29/2008 Itchy eyes Morphine And Codeine 11/10/1999 hydrocodone,itching Percocet 10/03/2002 Itch Tetanus Toxoid 09/25/2002 arm swollen,painful,fing ers numb Tramadol Hcl 09/26/2000 hives documented as of this encounter (statuses as of 02/14/2024) Medications Medication Sig Dispensed Refills Start Date End Date Status Multiple Vitamins-Minerals (MULTIVITAMIN ADULT) CHEW Take by mouth. Active Calcium Carbonate-Vitamin D 500-125 MG-UNIT Oral Tablet Take by mouth. Active Fluticasone-Salmeter ol 250-50 MCG/ACT Inhalation Aerosol Powder Breath Activated (Advair Diskus) INHALE ONE PUFF BY MOUTH EVERY MORNING & ONE PUFF BEFORE BEDTIME 180 Each 1 12/28/2022 Active Spironolactone 25 MG Oral Tablet (Aldactone) TAKE ONE TABLET BY MOUTH EVERY MORNING 90 Tablet 3 04/17/2023 Active Alendronate Sodium 70 MG Oral Tablet (Fosamax) Take 1 Tablet by mouth once a week. with 8 oz. water 30 minutes before first meal of the day. Remain upright for 30 min after taking tablet. 12 Tablet 3 05/24/2023 Active Losartan Potassium 50 MG Oral Tablet (Cozaar)Indications: HTN, goal below 130/80 TAKE ONE TABLET BY MOUTH EVERY MORNING 90 Tablet 3 07/18/2023 5 Active Diclofenac Sodium 1 % External Gel (Voltaren)Indication s:Pain in both feet,Right wrist pain Apply topically to affected area 2 times a day. Apply to right wrist and feet twice daily as needed. 100 g 1 10/05/2023 Active Tiotropium [place] Monohydrate 18 MCG Inhalation Capsule (Spiriva HandiHaler)Indicatio ns:Asthma, moderate persistent INHALE THE CONTENTS OF 1 CAPSULE VIA HANDIHALER ONCE A DAY (DO NOT SWALLOW CAPSULE) 90 Capsule 1 10/23/2023 5 Active Levothyroxine Sodium 88 MCG Oral Tablet (Levoxyl)Indications :Acquired hypothyroidism TAKE 1 TABLET BY MOUTH DAILY AT LEAST 30 MINUTES PRIOR TO FIRST MEAL OF THE DAY OR OTHER MEDICATIONS 100 Tablet 1 11/16/2023 5 Active Citalopram Hydrobromide 20 MG Oral Tablet (CeleXA)Indications: Depression with anxiety TAKE ONE TABLET BY MOUTH EVERY MORNING 100 Tablet 1 11/16/2023 5 Active Hospital, Clinic, or Other Facility Administered Medication Ordered Dose Route Frequency Start Date End Date Status albuterol sulfate (PROVENTIL) (2.5 MG/3ML) 0.083% inhalation solution 2.5 mgIndications:COPD, moderate (HCC) 2.5 mg NEBULIZER Q4H PRN 04/19/2017 Active vitamin b-12 (Cyanocobalamin) inj 1,000 mcgIndications:S/P gastric bypass 1000 mcg IM [id number] 05/11/2022 02/12/2025 Active documented as of this encounter (statuses as of 02/14/2024) Active Problems Problem Noted Date Diagnosed Date Primary osteoarthritis of both knees 09/05/2023 Osteoporosis 06/22/2023 Overview: Patient did start fosamax recently HTN, goal below 130/80 08/17/2022 Obstructive sleep apnea of adult 08/15/2020 History of adenomatous polyp of colon 08/02/2018 History of paroxysmal atrial tachycardia 018 Arthritis of right acromioclavicular joint 04/11 S/P gastric bypass 04/11/2017 Depression with anxiety 03/04/2015 Asthma, moderate persistent 05/27/2013 Umbilical hernia 10/22/2012 Vitamin B deficiency 12/29/2008 Intestinal postoperative nonabsorption 7 BLACKMAN RESEARCH OTHER*[id number] 10/29/2006 Acquired hypothyroidism 01/19/2004 GENERAL OSTEOARTHROSIS Vitamin D deficiency Ventral hernia without obstruction or gangrene documented as of this encounter (statuses as of 02/14/2024) Resolved Problems Problem Noted Date Diagnosed Date [...] 08/10/19 19 Coronary artery disease invo lving [place] coronary artery of [place] heart without angina pectoris 10/09/2017 08/09/2018 CKD (chronic kidney disease), stage III 08/15/2017 08/31/2017 Overview: GFR 52.2 Dyslipidemia, goal to be determined 12/20/2016 04/11/2017 Hyperlipidemia LDL goal <100 12/20/2016 02/20/2023 Essential hypertension with goal blood pressure less than 140/90 03/13/2016 04/11/2017 Allergic rhinitis due to pollen 09/09/2015 04/11/2017 Severe obesity with body mas s index (BMI) of 35.0 to 39.9 with serious comorbidity 03/04/2015 Overview: ICD-10 update of inactive diagnosis Asthma, moderate persistent 05/27/2013 04/11/2017 Muscle cramp, nocturnal 12/24/201203/22 Small bowel obstruction 03/06/201210/2011 Thoracic degenerative disc disease 02/29/2012 04/11/2017 Major depressive disorder 07/11/2011 Overview: ICD-10 update of inactive term Leg cramps, sleep related 11/01/2010 COPD, MODERATE 06/08/2010 10/09/2017 Overview: Per COPD Protocol #24. COPD W BRONCHITIS,EMPHYSEMATOS Last PFT - 2010-05-27 Degeneration of lumbosacral intervertebral disc 06/29/2009 04/11/2017 HTN, goal below 140/90 03/26/200903/13 Overview: Modified per HTN Taxonomy. Gouty arthropathy 03/04/2009 04/11/2017 Overview: ICD-9 Code Update ICD-10 update of inactive term Type 2 diabetes mellitus wit h hemoglobin A1c goal of less than 7.0% 01/28/2008 06/30/2008 Overview: ICD-10 update of inactive term CKD (chronic kidney disease), stage II 08/26/2007 03/26/2019 Overview: Added per CKD clinical protocol 1 Hypothyroidism 04/26/2007 2007 Localized, primary osteoarth ritis of ankle or foot 11/29/2006 09/04/2007 Paroxysmal atrial tachycardia 11/15/2005 10/09/2017 ADVANCE DIRECTIVE INFORMATION 05/17/2005 04/11/2017 Overview: No, Advance Directive brochure given to patient at prior appointment. Slow transit constipation 05/17/2005 Morbid obesity, BMI not known 08/12/2004 01/28/2008 BLACKMAN (nonalcoholic steatohepatitis) 02/29/2004 04/25/2018 Major depressive disorder, r ecurrent severe without psychotic features 02/29/2004 07/11/2011 Mixed dyslipidemia 01/19/2004 9 Rhinitis 12/09/2003 10/09/2017 Carpal tunnel syndrome 03/03/200304/11 Cervical spondylosis 09/25/2002 008 CERVICAL DISC DEGEN 09/25/2002 04/11/20 17 Gouty arthropathy 10/02/2001 03/04/2009 Overview: ICD-9 Code Update ICD-10 update of inactive term Thoracic and lumbosacral neuritis 12/04/2000 2007 Goiter 04/11/2017 EXT ASTHMA W-O STAT ASTH 10/2013 BENIGN HYPERTENSION 03/26/20 09 Overview: Modified per HTN Taxonomy. Peptic ulcer 2007 GOUT W MANIFESTATION NEC ABN LIVER FUNCTION STUDY BURSITIS NEC 2007 ABN BLOOD CHEMISTRY NEC 07/20 DM type 2, not at goal 01/27 Metabolic syndrome 9 Adenomatous polyp of colon 0 08/02/2018 Chronic bronchitis, obstructive 05/18/2011 Overview: COPD W BRONCHITIS,EMPHYSEMATOS Tubular adenoma of colon Benign hypertension with CKD (chronic kidney disease) stage III 04/25/2018 documented as of this encounter (statuses as of 02/14/2024) Immunizations Name Administration Dates Next Due COVID-19 mRNA, LNP-s, No Pre serve, 2-Dose Series (Moderna) 11/03/2020,10/05/2020 COVID-19, mRNA, LNP-s, PF, B ooster, 100mcg/0.5mg (Moderna) 06/14/2021 Covid-19, Mrna, Lnp-s, Pf, B ivalent, 30 Mcg, IM, 12 yrs and above (Pfizer) 05/16/2022 Pneumococcal Conjugate Vacc, 13 Valent (Prevnar) 08/19/2014 Pneumococcal Polysaccharide PPV23 (Pneumovax) 02/07/2012,02/14/2006 Season Influenza, Quad, PF, Adjuvanted, 65+ Yrs, IM (FLUAD) 02/02/2020 Seasonal Influenza Virus Vac cine, Unspecified Formulation 01/21/2020 Seasonal Influenza, High Dos e, Trivalent, PF, IM (Fluzone HD) 02/14/2024 Seasonal Influenza, PF, 6 M & above, IM , (FluLaval or Fluzone) 02/15/2018,03/02/2017 Seasonal Influenza, Quadriva lent Hd (Fluzone Hd) 02/20/2023,02/17/2022,02/01/2021 Seasonal Influenza, Quadriva lent, No Preserve, IM 02/09/2016,03/04/2015 Seasonal Influenza, Trivalen t, (IIV3), with Preserv, (Fluzone) 03/04/2013,02/07/2012,02/06/2011,03/21,02/24/2009,04/02/2008,04/02/2007 ,05/16/2006 Seasonal Influenza, Trivalen t, Adjuvanted, 65+ YRS, [...] Answer Date Recorded PHQ Adult Total Score 3 06/21/2022 Hunger Vital Sign Answer Date Recorded Within the past 12 months, y ou worried that your food would run out before you got the money to buy more. Patient declined Within the past 12 months, t he food you bought just didn't last and you didn't have money to get more. Patient declined Sex and Gender Information Value Date Recorded Sex Assigned at Female 06/18/2022 7:39 PM EST Gender Identity Female 06/18/2022 7:39 PM EST Sexual Orientation Straight 06/18/2022 7: 39 PM EST Job Start Date Occupation Industry Not on file Not on file Not on file documented as of this encounter Progress Notes * Mara Cho CMA - 02/14/2024 1:13 PM EDT PRE - ADMINISTRATION DOCUMENTATION Are you experiencing any cold symptoms or fever? No Have you had Guillain-Columbia Syndrome (an illness that causes paralysis) within the last 6 weeks? No Have you had the flu shot in the past? YES Have you ever had a reaction to the flu shot? No Mara Cho CMA, 02/14/2024 1:13 PM Immunization Administration Documentation Time Out Procedure Performed: Yes Patient Identified (Ask Name/Date of ): Yes Does the patient have a fever greater than 101 degrees today? No Patient allergic to latex? No VFC Stock: No Immunization(s) verified: Yes, Immunization Name: Flu, VIS Sheet(s) given: Yes Verified Side and Site: Yes Verified Shot(s) with Parent(s)/Patient: Yes documented in this encounter Nursing Notes * Mara Cho CMA - 02/14/2024 1:09 PM EDT Patient was identified by full name and date of . Mira Callaway presented for B12 injection. This was administered per orders. The patient tolerated this well and left the clinic in stable condition. Mara Cho CMA documented in this encounter Plan of Treatment Upcoming Encounters Date Type Department Care Team (Late st Contact Info) Description 04/15/2024 2:30 PM EST Office Visit [address] [place] [phone] Chantel Girard, [address] [place] [address] 06/24/2024 1:00 PM EST Nurse Only Ancillary [address] [place] [address] [place], Nurse Annual Wellness [address] [place] [address] [place] [address] Health Maintenance Due Date Last Done Comments Zoster Vaccines (1 of 2) 1996 COVID-19 Vaccine (2023- season) 2024 05/16/2022, 06/14/2021, 11/03/2020, Additional history [...] Influenza Vaccine (FLU shot) Completed 02/14/2024, 02/20/2023, 02/20/2023, Additional history exists Cologuard Discontinued HPV (Gardasil) [...] this encounter Medical Devices Implanted Type Area Tech Ed/Woodshop Teacher Device Identifier Shelf Expiration Date Model / Serial / Lot Clip Quick 2.8mm 230cm - [id number] Implanted:Qty: 1 on 04/26/2021 by Alexx Avalos MD at ENDOSCOPY [facility] [employer] [facility] 09/18/2023 [id number]-202UR.A / / [id number] documented as of this encounter Visit Diagnoses Diagnosis Vitamin B deficiency- Primary Unspecified vitamin B deficiency Need for prophylactic vaccination and inoculation against influenza documented in this encounter Administered Medications Active Administered Medications - up to 3 most recent administrations Medication Order MAR Action Action Date Dose Rate Site vitamin b-12 (Cyanocobalamin) inj 1,000 mcg 1,000 mcg, Intramuscular, [id number], First dose on Sofy 05/11/22 at 1200, Last dose on Sofy 11/20/24 at 1200, For 12 doses Given By 02/14/2024 1:11 PM EDT 1,000 mcg Deltoid Left Upper Given 11/14/2023 11:01 AM EDT 1,000 mcg D eltoid Left Upper Given 2023 11:04 AM EDT 1,000 mcg D eltoid Left Upper documented in this encounter Advance Directives * [...] 8:09 AM 04/25/2007 8:13 PM Care Teams Screener And Blender Relationship Specialty Start Date End Date Chantel Girard DO [address] [place] [address] [place] [address] PCP - General Internal Medicine 04/08/21 documented as of this encounter
--- OUTSIDE RECORDS SUMMARY | 2024-05-30 07:04 | External Medical Summary | Summary of Care ---
Author Name Unknown Organization [facility] Address [address] [place] [address] Phone [phone] Care Team Providers Care Statistical Modeler Name Role Phone Sachin Neal DO Primary Care Provider Reason for Visit * Reason Comments Medication Refill Encounter Details Date Type Department Care Team (Late st Contact Info) Description 02/18/2024 Refill Family Medicine [address] [phone] Sachin Neal [address] [place] [address] Allergies Active Allergy Reactions Criticality Noted Date Comments Amoxicillin 09/26/2000 hives Gentamicin Sulfate Other (Please comment) High 12/29/2008 Itchy eyes Morphine And Codeine 11/10/1999 hydrocodone,itching Percocet 10/03/2002 Itch Tetanus Toxoid 09/25/2002 arm swollen,painful,fing ers numb Tramadol Hcl 09/26/2000 hives documented as of this encounter (statuses as of 02/20/2024) Medications Medication Sig Dispensed Refills Start Date End Date Status Multiple Vitamins-Minerals (MULTIVITAMIN ADULT) CHEW Take by mouth. Active Calcium Carbonate-Vitamin D 500-125 MG-UNIT Oral Tablet Take by mouth. Active Spironolactone 25 MG Oral Tablet (Aldactone) [...] Active Losartan Potassium 50 MG Oral Tablet (Cozaar)Indications :HTN, goal below 130/80 TAKE ONE TABLET BY MOUTH EVERY MORNING 90 Tablet 3 07/18/2023 5 Active Diclofenac Sodium 1 % External Gel (Voltaren)Indicatio ns:Pain in both feet,Right wrist pain Apply topically to affected area 2 times a day. Apply to right wrist and feet twice daily as needed. 100 g 1 10/05/2023 Active Tiotropium [place] Monohydrate 18 MCG Inhalation Capsule (Spiriva HandiHaler)Indicati ons:Asthma, moderate persistent INHALE THE CONTENTS OF 1 CAPSULE VIA HANDIHALER ONCE A DAY (DO NOT SWALLOW CAPSULE) 90 Capsule 1 10/23/2023 5 Active Levothyroxine Sodium 88 MCG Oral Tablet (Levoxyl)Indication s:Acquired hypothyroidism TAKE 1 TABLET BY MOUTH DAILY AT LEAST 30 MINUTES PRIOR TO FIRST MEAL OF THE DAY OR OTHER MEDICATIONS 100 Tablet 1 11/16/2023 5 Active Citalopram Hydrobromide 20 MG Oral Tablet (CeleXA)Indications :Depression with anxiety TAKE ONE TABLET BY MOUTH EVERY MORNING 100 Tablet 1 11/16/2023 5 Active Fluticasone-[place] rol 250-50 MCG/ACT Inhalation Aerosol Powder Breath Activated (Advair Diskus) INHALE ONE PUFF BY MOUTH EVERY MORNING & ONE PUFF BEFORE BEDTIME 180 Each 1 02/20/2024 Active Fluticasone-[place] rol 250-50 MCG/ACT Inhalation Aerosol Powder Breath Activated (Advair Diskus) INHALE ONE PUFF BY MOUTH EVERY MORNING & ONE PUFF BEFORE BEDTIME 180 Each 1 12/28/2022 4 Discontinu ed(Refill) Hospital, Clinic, or Other Facility Administered Medication Ordered Dose Route Frequency Start Date End Date Status albuterol sulfate (PROVENTIL) (2.5 MG/3ML) 0.083% inhalation solution 2.5 mgIndications:COPD, moderate (HCC) 2.5 mg NEBULIZER Q4H PRN 04/19/2017 Active vitamin b-12 (Cyanocobalamin) inj 1,000 mcgIndications:S/P gastric bypass 1000 mcg IM [id number] 05/11/2022 02/12/2025 Active documented as of this encounter (statuses as of 02/20/2024) Active Problems Problem Noted Date Diagnosed Date [...] 12/29/2008 Intestinal postoperative nonabsorption 7 [employer] OTHER*[id number] 10/29/2006 Acquired hypothyroidism 01/19/2004 GENERAL OSTEOARTHROSIS Vitamin D deficiency Ventral hernia without obstruction or gangrene documented as of this encounter (statuses as of 02/20/2024) Resolved Problems Problem Noted Date Diagnosed Date [...] 08/10/19 19 Coronary artery disease invo lving [place] coronary artery of jackson heart without angina pectoris 10/09/2017 08/09/2018 CKD [...] as of this encounter (statuses as of 02/20/2024) Immunizations Name Administration Dates Next Due COVID-19 mRNA, LNP-s, No Pre serve, 2-Dose Series (Moderna) 11/03/2020,10/05/2020 COVID-19, mRNA, LNP-s, PF, B ooster, 100mcg/0.5mg (Moderna) 06/14/2021 Covid-19, Mrna, Lnp-s, Pf, B ivalent, 30 Mcg, IM, 12 yrs and above ([employer]) 05/16/2022 Pneumococcal Conjugate Vacc, 13 Valent (Prevnar) [...] encounter Miscellaneous Notes * Telephone Encounter - Nakita Pitt RPh - 02/20/2024 10:32 AM EDTSigned Prescriptions: Disp Refills Fluticasone-Salmeterol 250-50 MCG/ACT Inha*180 Ea*1 Sig: INHALE ONE PUFF BY MOUTH EVERY MORNING & ONE PUFF BEFORE BEDTIME Authorizing Provider: SACHIN NEAL Ordering User: NAKITA PITT * Telephone Encounter - Seble Harris CPhT - 02/19/2024 2:43 PM EDT Did you pend patient's preferred pharmacy and medication before forwarding?yes Pharmacy: [facility] Pending Prescriptions: Disp Refills Fluticasone-Salmeterol 250-50 MCG/ACT Inh*180 Ea*1 Sig: INHALE ONE PUFF BY MOUTH EVERY MORNING & ONE PUFF BEFORE BEDTIME Last Visit: 09/05/2023 (in office), Visit date not found (telemedicine) Next Visit: 04/15/2024 If no future appointments scheduled, and last appointment is greater than a year ago, please schedule patient for a follow-up appointment Last date the medication was ordered: 12/28/22 Is this request for a controlled substance?No Urine Drug Screen:No results found. However, due to the size of the patient record, not all encounters were searched. Please check Results Review for a complete set of results. Patient Phone Numbers Labs: Lab Results Component Value Date/Time CREAT 0.9 01/29/2023 09:21 AM CREAT 0.73 09/11/2020 12:00 AM CREAT 0.8 03/12/2020 01:52 PM POTASSIUM 4.3 01/29/2023 09:21 AM POTASSIUM 3.8 09/11/2020 12:00 AM POTASSIUM 4.6 03/12/2020 01:52 PM TSH 0.94 02/20/2023 02:26 PM TSH 0.47 03/12/2020 01:52 PM TSH 0.81 07/25/1996 04:35 PM LDL 87 06/01/2021 11:39 AM LDL 72 03/26/2019 01:31 PM LDL NOT APPLICABLE 03/26/2019 01:31 PM ALT 21 01/29/2023 09:21 AM ALT 28 03/12/2020 01:52 PM HGBA1C 5.5 06/01/2021 11:39 AM HGBA1C 5.5 03/26/2019 01:31 PM documented in this encounter Plan of Treatment Upcoming Encounters Date Type Department Care Team (Late st Contact Info) Description 02/20/2024 11:40 AM EDT Office Visit [address] [place] [phone] Pam Oshea PA-C [address] [place] [address] [place] [address] 04/15/2024 2:30 PM EST Office Visit [address] [place] [phone] Sachin Neal DO [address] [place] [address] [place] [address] 06/24/2024 1:00 PM EST Nurse Only Ancillary Orangeadrienne Bonilla[address] [place] [address] [place], Nurse Annual [address] [place] [address] Health Maintenance Due Date Last Done Comments [...] this encounter Medical Devices Implanted Type Area Drawing Operator Device Identifier Shelf Expiration Date Model / Serial / Lot Clip Quick 2.8mm 230cm - [id number] Implanted:Qty: 1 on 04/26/2021 by Alexx Avalos MD at ENDOSCOPY [facility] [employer] 09/18/2023 [id number]-202UR.A / / [id number] documented [...] 8:09 AM 04/25/2007 8:13 PM Care Teams Statistical Modeler Relationship Specialty Start Date End Date Sachin Neal DO [address] [place] [address] [place] [address] PCP - General Internal Medicine 04/08/21 documented as of this encounter
--- OUTSIDE RECORDS SUMMARY | 2024-05-30 07:04 | External Medical Summary | Summary of Care ---
Author Name Unknown Organization [facility] Address [address] [place] [address] Phone [phone] Care Team Providers Care Textile Colorist Formulator Name Role Phone Chantel Girard DO Primary Care Provider [phone] Reason for Visit * Reason Comments Acute Encounter Details Date Type Department Care Team (Late st Contact Info) Description 02/20/2024 11:40 AM EDT Office Visit Family Medicine [address] [place] [phone] Pam Oshea PA-C [address] [place] [address] [place] [address] Acute pain of right shoulder* Allergies Active Allergy Reactions Criticality Noted Date [...] needed. 100 g 1 10/05/2023 Active Tiotropium [place] Monohydrate 18 MCG Inhalation Capsule (Spiriva HandiHaler)Indicatio [...] MORNING 100 Tablet 1 11/16/2023 5 Active Fluticasone-Salmeter ol 250-50 MCG/ACT Inhalation Aerosol Powder Breath Activated (Advair Diskus) INHALE ONE PUFF BY MOUTH EVERY MORNING & ONE PUFF BEFORE BEDTIME 180 Each 1 02/20/2024 Active predniSONE 20 MG Oral Tablet (Deltasone)Indicatio ns:Acute pain of right shoulder 2 tablets daily for 5 days then 1 tablet daily 15 Tablet 02/20/2024 Active Hospital, Clinic, or Other Facility Administered Medication Ordered Dose Route Frequency Start Date End Date Status albuterol sulfate (PROVENTIL) (2.5 MG/3ML) 0.083% inhalation solution 2.5 mgIndications:COPD, moderate (HCC) 2.5 mg NEBULIZER Q4H PRN 04/19/2017 Active vitamin b-12 (Cyanocobalamin) inj 1,000 mcgIndications:S/P gastric bypass 1000 mcg IM [id number] 05/11/2022 02/12/2025 Active documented as of this [...] 12/29/2008 Intestinal postoperative nonabsorption 7 [employer] OTHER*[id number] 10/29/2006 Acquired hypothyroidism 01/19/2004 GENERAL OSTEOARTHROSIS Vitamin [...] knee 10/09/2018 09/05/2023 Asthma in remission 10/09/2017 03/22/20 19 Coronary artery disease invo lving [place] coronary artery of [place] heart without angina pectoris 10/09/2017 08/09/2018 CKD [...] 30 Mcg, IM, 12 yrs and above ([employer]) 05/16/2022 Pneumococcal Conjugate Vacc, 13 Valent (Prevnar) [...] Sign Reading Time Taken Comments Blood Pressure 140/72 02/20/2024 11:29 AM EDT Pulse 76 02/20/2024 11:29 AM EDT Temperature 36.4 C (97.6 F) 02/20/2024 11:29 AM E DT Respiratory Rate 16 02/20/2024 11:29 AM EDT Oxygen Saturation 98% 02/20/2024 11:29 AM EDT Inhaled Oxygen Concentration - - Weight 100.2 kg (221 lb) 02/20/2024 11:29 AM EDT Height - - Body Mass Index 36.78 09/05/2023 2:17 PM EDT documented in this encounter Progress Notes * Pam Oshea PA-C - 02/20/2024 11:35 AM EDT Nursing Notes: Eileen Prajapati RN 02/20/24 1134 Sign at exiting of workspace Acute visit for right shoulder pain x 1-2 weeks, hands tingle sometimes from this Pt here today with right shoulder pain for the past couple weeks. The pain is at anterior shoulder.No injury. No edema, no erythema, no ecchymosis. She does have pain into arm, numbness/tingling. Ptis using a rx cream with little relief. The pain is worse with movements. Has some clicking. Pt denies weakness into arm. Has never had issues with this shoulder, in the past. Review of patient's allergies indicates: Allergen Reactions Gentamicin Ophthalmic [Gentamicin Sulfate] Other (Please comment) Itchy eyes Amoxicillin hives Morphine And Codeine hydrocodone,itching Percocet Itch Tetanus Toxoid arm swollen,painful,fingers numb Tramadol Hcl hives Current Outpatient Medications Medication Sig Dispense Refill [...] daily as needed. 100 g 1 Tiotropium [place] Monohydrate 18 MCG Inhalation Capsule (Spiriva HandiHaler) [...] ONE PUFF BEFORE BEDTIME 180 Each 1 Current Facility-Administered Medications Medication Dose Route Frequency Provider Last Rate Last Admin albuterol sulfate (PROVENTIL) (2.5 MG/3ML) 0.083% inhalation solution 2.5 mg 2.5 mg Nebulizer Q4H PRN Chantel Girard DO 2.5 mg at 08/22/22 0755 vitamin b-12 (Cyanocobalamin) inj 1,000 mcg 1,000 mcg Intramuscular Q12 Weeks Shari Carbone PA-C 1,000 mcg at 02/14/24 1311 Past Medical History: Diagnosis Date Abnormal blood chemistry 05/2000 hyperglycemia Abnormal results of liver function studies 08/1999 Adenomatous polyp of colon Allergic rhinitis due to pollen 09/09/2015 Asthma Asthma with exacerbation 08/02/2018 Asthma, moderate persistent 05/27/2013 Benign hypertension with CKD (chronic kidney disease) stage III ([facility]) Benign neoplasm of colon 09/27/2009 8 mm polyp- tubulovillous adenoma- repeat in one yr div Carpal tunnel syndrome Cervical spondylosis 09/25/2002 Chronic bronchitis, obstructive (HCC) COPD W BRONCHITIS,EMPHYSEMATOS CKD (chronic kidney disease), stage III ([facility]) 08/15/2017 GFR 52.2 Coronary artery disease Degeneration of lumbosacral intervertebral disc 06/29/2009 Depression with anxiety 03/04/2015 Depressive disorder, not elsewhere classified 07/11/2011 DM type 2, not at goal ([facility]) 10/2005 Essential hypertension with goal blood pressure [...] 12/24/2012 BLACKMAN (nonalcoholic steatohepatitis) 02/29/2004 [employer]MAN RESEARCH OTHER*[id number] 10/29/2006 Obesity, Class II, BMI 35.0-39.9, with [...] or gangrene 08/18/2017 Vitamin D deficiency 07/06/2009 Social History Socioeconomic History Marital status: Spouse name: Not on file Number of children: 1 Years of education: Not on file Highest education level: Not on file Occupational History 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 Tobacco Use Smoking status: Former Current packs/day: 0.00 Average packs/day: 0.3 packs/day for 0.5 years (0.1 ttl pk-yrs) Types: Cigarettes Start date: 11/1968 Quit date: 1970 Years since quittin.7 Smokeless tobacco: Never Tobacco comments: No regular use tried as a kid Vaping Use Vaping status: Never Used Substance and Sexual Activity Alcohol use: Not Currently Alcohol/week: 0.0 standard drinks of alcohol Comment: quit 1987 - 2 years of abuse RARE USE AT THIS TIME Drug use: No Sexual activity: Yes Partners: Male Other Topics Concern Service Not Asked Blood Transfusions No Caffeine Concern Not Asked Occupational Exposure Not Asked Hobby Hazards Not Asked Sleep Concern Not Asked Stress Concern Not Asked Weight Concern Not Asked Special Diet Yes Comment: trying to lose wt Back Care Not Asked Exercise Not Asked Bike Helmet Not Asked Seat Belt Yes Self-Exams Not Asked Social History Narrative for 16yr as of 06/22/2023 but together forever. Social Determinants of Health Financial Resource Strain: Low Risk (08/22/2023) Financial Resource Strain Do you have any trouble paying for your medications, or do you think you might in the future? (Adult - for ages 18 years and over): No Does your family have trouble paying for medicine? (Household - for ages 0-17 years): Not on file Food Insecurity: No Food Insecurity (08/22/2023) Food Insecurity Do you need food for this week? (Adult - for ages 18 years and over): No Are you able to get enough food for your family? (Household - for ages 0-17 years): Not on file Does your family need food this week? (Household - for ages 0-17 years): Not on file Do you always have enough food for your family? (Household - for ages 0-17 years): Not on file Transportation Needs: No Transportation Needs (08/22/2023) Transportation Needs Do you have trouble getting a ride to medical visits or work? (Adult - for ages 18 years and over):Never True Does your family have a hard time getting a ride to doctors visits? (Household - for ages 0-17 years): Not on file Has lack of transportation kept you from medical appointments, meetings, work, or from getting things needed for daily living? Check all that apply. (Adult - for ages 18 years and over): Not on file Do you (or your family) have trouble finding or paying for a ride (transportation)? (Household - for ages 0-17 years): Not on file Social Connections: Socially Integrated (08/22/2023) Social Connections How often do you feel lonely or isolated from those around you? (Adult - for ages 18 years and over): Never Housing Stability: Low Risk (08/22/2023) Housing Stability Do you currently live in a alf or have no steady place to sleep at night? (Adult - for ages 18 years and over): No Do you think you are at risk of becoming homeless? (Adult - for ages 18 years and over): No Does your family worry about paying for your home or becoming homeless? (Household - for ages 0-17 years): Not on file Are you homeless or worried that you might be in the future? (Adult - for ages 18 years and over): Not on file Are you (or your family) homeless or worried that you might be in the future? (Household - for ages0-17 years): Not on file O:Blood pressure 140/72, pulse 76, temperature 36.4 C (97.6 F), resp. rate 16, weight 100.2 kg (221 lb), SpO2 98%. GENERAL: alert, healthy, and no distress EXTREMITIES: right shoulder - no edema, no erythema, no ecchymosis. Pain with palpation at anteriorshoulder. Pain with ROM at shoulder. No crepitus appreciated. A:Acute pain of right shoulder (Primary) - XR SHOULDER, 2 OR MORE VIEWS - predniSONE 20 MG Oral Tablet (Deltasone); 2 tablets daily for 5 days then 1 tablet daily Will xray shoulder. Start prednisone. Any questions/problems, please call. If anything changes, worsens, develops new sx, please call JAQUELINE. Follow Up: Return if symptoms worsen or fail to improve. Pam Oshea PA-C documented in this encounter Nursing Notes * Eileen Prajapati RN - 02/20/2024 11:33 AM EDT Acute visit for right shoulder pain x 1-2 weeks, hands tingle sometimes from this documented in this encounter Plan of Treatment Upcoming Encounters Date Type Department Care Team (Late st Contact Info) Description 02/20/2024 1:00 PM EDT Imaging Radiology [address] [place] [address] Arrived 04/15/2024 2:30 PM EST Office Visit Family Medicine [address] [place] [phone] Chantel Girard, [address] [place] [address] 06/24/2024 1:00 PM EST Nurse Only Ancillary [address] [place] [address] [place], Nurse Annual Wellness [address] [place] [address] [place] [address] Pending Results Name Type Priority Associated Diagnoses Date /Time XR SHOULDER, 2 OR MORE VIEWS Medical Imaging Routine Acute pain of right shoulder 02/20/2024 11:55 AM EDT Health Maintenance Due Date Last Done Comments [...] Completed 08/19/2014, 02/07/2012, 02/14/2006 Colonoscopy Discontinued 04/26/2021, 1211/2020, 04/19/2016, Additional history exists Colorectal Cancer Screening [...] this encounter Medical Devices Implanted Type Area Package Collector Device Identifier Shelf Expiration Date Model / Serial / Lot Clip Quick 2.8mm 230cm - [id number] Implanted:Qty: 1 on 04/26/2021 by Alexx Avalos MD at ENDOSCOPY [facility] [employer] [facility] 09/18/2023 [id number]-202UR.A [id number] / [id number] documented as of this encounter Visit Diagnoses Diagnosis Acute pain of right shoulder- Primary documented in this encounter Advance Directives [...] 8:09 AM 04/25/2007 8:13 PM Care Teams Textile Colorist Formulator Relationship Specialty Start Date End Date Chantel Girard DO [address] [place] [address] [place] [address] PCP - General Internal Medicine 04/08/21 documented as of this encounter
--- OUTSIDE RECORDS SUMMARY | 2024-05-30 07:04 | External Medical Summary | Summary of Care ---
Author Name Unknown Organization [facility] Address [address] [place] [address] Phone [phone] Care Team Providers Care Psych Arnp Name Role Phone Chantel Girard DO Primary Care Provider Reason for Visit * Reason Onset Date Comments Health Maintenance 02/11/2024 Encounter Details Date Type Department Care Team (Late st Contact Info) Description 02/11/2024 Telephone Family Medicine [address] [phone] Chantel Girard [address] [place] [address] Health Maintenance Allergies Active Allergy Reactions Criticality Noted Date Comments Amoxicillin 09/26/2000 hives Gentamicin Sulfate Other (Please comment) High 12/29/2008 Itchy eyes Morphine And Codeine 11/10/1999 hydrocodone,itching Percocet 10/03/2002 Itch Tetanus Toxoid 09/25/2002 arm swollen,painful,fing ers numb Tramadol Hcl 09/26/2000 hives documented as of this encounter (statuses as of 02/11/2024) Medications Medication Sig Dispensed Refills Start Date [...] needed. 100 g 1 10/05/2023 Active Tiotropium [place] Monohydrate 18 MCG Inhalation Capsule (Spiriva HandiHaler)Indicatio [...] 1,000 mcgIndications:S/P gastric bypass 1000 mcg IM [id number] 05/11/2022 02/12/2025 Active documented as of this encounter (statuses as of 02/11/2024) Active Problems Problem Noted Date Diagnosed Date [...] B deficiency 12/29/2008 Intestinal postoperative nonabsorption 7 [place] [employer] OTHER*[id number] 10/29/2006 Acquired hypothyroidism 01/19/2004 GENERAL OSTEOARTHROSIS Vitamin D deficiency Ventral hernia without obstruction or gangrene documented as of this encounter (statuses as of 02/11/2024) Resolved Problems Problem Noted Date Diagnosed Date [...] 08/10/19 19 Coronary artery disease invo lving [place] coronary artery of [place] heart without angina pectoris 10/09/2017 08/09/2018 CKD [...] as of this encounter (statuses as of 02/11/2024) Immunizations Name Administration Dates Next Due COVID-19 [...] Vac cine, Unspecified Formulation 01/21/2020 Seasonal Influenza, PF, 6 M & above, [...] encounter Miscellaneous Notes * Telephone Encounter - Irma Fraire LPN - 02/11/2024 11:03 AM EDT Care Gaps Comprehensive Care Outreach Last Office/Telemedicine Visit: 09/05/2023 (in office), Visit date not found (telemedicine) Next Office Visit: 04/15/2024 Hemoglobin AIC Results: Lab Results Component Value Date/Time HEMOGLOBIN A1C - [facility] 5.5 06/01/2021 11:39 AM HEMOGLOBIN A1C - [facility] 5.5 03/26/2019 01:31 PM HEMOGLOBIN A1C - [facility] 5.2 02/20/2012 07:05 AM HEMOGLOBIN A1C - [facility] 5.3 08/17/2010 10:10 AM BP Readings from Last 1 Encounters: 10/24/23 120/68 Reviewed Health Maintenance below: Health Maintenance Topic Date Due Zoster Vaccines (1 of 2) Never done Influenza Vaccine (FLU shot) (1) 01/20/2024 COVID-19 Vaccine ( season) 2024 GFR 01/30/2024 TSH 02/21/2024 Labs defer to pcp Care Gap Outreach Action Taken: Outreach not indicated documented in this encounter Plan of Treatment Upcoming Encounters Date Type Department Care Team (Late st Contact Info) Description 02/14/2024 1:00 PM EDT Nurse Only Ancillary [address] [place] [address] [place], Nurse [address] [place] [address] 04/15/2024 2:30 PM EST Office Visit Family Medicine [address] [place] [phone] Chantel Girard[address] [place] [address] 06/24/2024 1:00 PM EST Nurse Only Ancillary [place] [address] [place] [address] [place], Nurse Annual [address] [place] [address] Health Maintenance Due Date Last Done Comments Zoster Vaccines (1 of 2) 1996 COVID-19 Vaccine ( season) 2024 05/16/2022, 06/14/2021, 11/03/2020, Additional history exists Influenza Vaccine (FLU shot) (#1) 2024 02/20/2023, 02/20/2023, 02/17/2022, Additional history exists GFR 01/30/2024 01/29/2023, 02/18, 02/17/2022, Additional history exists TSH 02/21/2024 02/20/2023, 01/21, 11/30/2020, Additional history exists Depression Monitoring 06/21/2024 06/21/2023 Adult Wellness Visit 06/22/2024 06/22/2023, 06/21/19 23 Albumin/Creatinine Ratio 10/09/202610/09/ 024, 11/30/2020, 11/28/2007, Additional history exists Fecal Occult Blood Test Discontinued 08/11/2009 Pneumococcal Vaccine: 65+ Years Completed 08/19/2014, 02/07/2012, 02/14/2006 Colonoscopy Discontinued 04/26/2021, 1211/2020, 04/19/2016, Additional history exists Colorectal Cancer Screening Discontinued RETIRED - COLONOSCOPY-EVERY 5 YRS AGES 18-100 Discontinued 04/26/2021, 04/26/2021, 04/19/2016, Additional history exists Cologuard Discontinued HPV (Gardasil) [...] this encounter Medical Devices Implanted Type Area Blanking Press Operator Device Identifier Shelf Expiration Date Model / Serial / Lot Clip Quick 2.8mm 230cm - [id number] Implanted:Qty: 1 on 04/26/2021 by Alexx Avalos MD at ENDOSCOPY [facility] [employer] [facility] 09/18/2023 [id number]-202UR.[id number] / / [...] 8:09 AM 04/25/2007 8:13 PM Care Teams Psych Arnp Relationship Specialty Start Date End Date Chantel Girard DO [address] [place] [address] [place] [address] PCP - General Internal Medicine 04/08/21 documented as of this encounter
--- OUTSIDE RECORDS SUMMARY | 2024-05-30 07:04 | External Medical Summary | Summary of Care ---
Author Name Unknown Organization [facility] Address [address] [place] [address] Phone [phone] Care Team Providers Care Oracle Ascp Consultant Name Role Phone Chantel Girard DO Primary Care Provider [phone] Reason for Referral * Evaluate & Treat - Unlimited Visits (Within 10 days (routine)) - Authorized Specialty Diagnoses / Procedures Referred By Maribell escobar Referred To Contact Sports Medicine / Orthopedics Diagnoses Chronic pain of left knee Chantel Girard DO [address] [place] [address] [place] [address] Phone: tel: fax: Referral ID Status Reason Start Date Expiration Date Visits Requested Visits Authorized [id number] Authorized Specialty Services Required 03/28/2024 999 999 [...] 3:10 PM EST Office Visit Family Medicine [address] [place] [phone] Chantel Girard, [address] [place] [phone] Bilateral arm numbness and tingling while sleeping*; [...] as of this encounter (statuses as of 03/28/2024) Medications Multiple Vitamins-Minerals (MULTIVITAMIN ADULT) CHEW Take by mouth. Act zaria Calcium Carbonate-Vitamin D 500-125 MG-UNIT Oral Tablet Take by mouth. Act zaria Tiotropium Whitetail Monohydrate 18 MCG Inhalation Capsule (Spiriva HandiHaler)Indica [...] 1,000 mcgIndications:S/P gastric bypass 1000 mcg IM [id number] 05/11/2022 02/12/2025 Active lidocaine 2 % inj 40 mgIndications:Acute pain of right shoulder 40 mg IJ ONCE 03/28/2024 03/29/2024 Ac tive methylPREDNISolone acetate (Depo-Medrol) 40 MG/ML inj 40 mgIndications:Acute pain of right shoulder 40 mg IX ONCE 03/28/2024 03/29/2024 Ac tive documented as of this encounter (statuses as of 03/28/2024) Active Problems Problem Noted Date Diagnosed Date Primary osteoarthritis of both knees 09/05/2023 Osteoporosis 06/22/2023 Overview (06/22/2023): Patient did start fosamax recently HTN, goal below 130/80 08/17/2022 Obstructive sleep apnea of adult 08/15/2020 History of adenomatous polyp of colon 08/02/2018 History of paroxysmal atrial tachycardia Arthritis of right acromioclavicular joint 04/11 S/P gastric bypass 04/11/2017 Depression with anxiety 03/04/2015 Asthma, moderate persistent 05/27/2013 Umbilical hernia 10/22/2012 Vitamin B deficiency 12/29/2008 Intestinal postoperative nonabsorption 7 BLACKMAN RESEARCH OTHER*[id number] 10/29/2006 Acquired hypothyroidism 01/19/2004 GENERAL OSTEOARTHROSIS Vitamin D deficiency Ventral hernia without obstruction or gangrene documented as of this encounter (statuses as of 03/28/2024) Resolved Problems Problem Noted Date Diagnosed Date [...] 08/10/19 19 Coronary artery disease invo lving [place] coronary artery of [place] heart without angina pectoris 10/09/2017 08/09/2018 CKD [...] as of this encounter (statuses as of 03/28/2024) Immunizations Name Administration Dates Next Due COVID-19 [...] No 08/22/2023 Does the household have a [facility] source of income? 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 Not on file [...] (chronic kidney disease) stage III ([facility]) Benign neoplasm of colon 09/27/2009 8 mm polyp- tubulovillous adenoma- repeat in one yr div Carpal tunnel syndrome Cervical spondylosis 09/25/2002 Chronic bronchitis, obstructive ([facility]) COPD W BRONCHITIS,EMPHYSEMATOS CKD (chronic kidney disease), stage III ([facility]) 08/15/2017 GFR 52.2 Coronary artery disease Degeneration of lumbosacral intervertebral disc 06/29/2009 Depression with anxiety 03/04/2015 Depressive disorder, not elsewhere classified 07/11/2011 DM type 2, not at goal ([facility]) 10/2005 Essential hypertension with goal blood [...] 12/24/2012 BLACKMAN (nonalcoholic steatohepatitis) 02/29/2004 BLACKMAN RESEARCH OTHER*[id number] 10/29/2006 Obesity, Class II, BMI 35.0-39.9, with [...] B deficiency Vitamin D deficiency BLACKMAN RESEARCH OTHER*[id number] Umbilical hernia Depression with anxiety Arthritis of [...] daily as needed. 100 g 1 Tiotropium Whitetail Monohydrate 18 MCG Inhalation Capsule (Spiriva HandiHaler) [...] 2.5 mg 2.5 mg Nebulizer Q4H PRN Era Chantelinder Jerry, 2.5 mg at 08/22/22 0755 vitamin b-12 [...] 2:30 PM EST Office Visit Family Medicine [address] [place] [phone] Chantel Girard DO [address] [place] [address] [place] [address] 06/24/2024 1:00 PM EST Nurse Only Ancillary [address] [place] [address] [place], Nurse [facility] [address] [place] [address] [place] [address] Scheduled Referrals Name Type Priority Associated Diagnoses [...] encounter Medical Devices Implanted Type Area Certified Public Accountant Device Identifier Shelf Expiration Date Model / Serial / Lot Clip Quick 2.8mm 230cm - [id number] Implanted:Qty: 1 on 04/26/2021 by Alexx Avalos MD at ENDOSCOPY [facility] [employer] 09/18/2023 [id number]-202UR.[id number] / [id number] documented as of this encounter Procedures Procedure Name Priority Date/Time Associated Diagnosis Comments NE ARTHROCENTESIS ASPIR&/INJ MAJOR JT/BURSA W/O US Routine 03/28/2024 3:52 PM EST Acute pain of right shoulder documented in this encounter Results * NE ARTHROCENTESIS ASPIR&/INJ MAJOR JT/BURSA W/O US (03/28/2024 [...] of right shoulder documented in this encounter Advance Directives * [...] 8:09 AM 04/25/2007 8:13 PM Care Teams Oracle Ascp Consultant Relationship Specialty Start Date End Date Chantel Girard DO [address] [place] [address] [place] [address] PCP - General Internal Medicine 04/08/21 documented as of this encounter"
--- OUTSIDE RECORDS SUMMARY | 2024-05-30 07:04 | External Medical Summary | Summary of Care ---
Author Name Unknown Organization [facility] Address [address] [place] [address] Phone [phone] Care Team Providers Care Grass Farmer Name Role Phone Chantel Girard DO Primary Care Provider Reason for Visit * Reason Onset Date Comments Advice 10/12/2023 Acute visit Encounter Details Date Type Department Care Team (Late st Contact Info) Description 10/12/2023 Telephone Family Medicine [address] [phone] Chantel Girard [address] [place] [address] Advice (Acute visit ) Allergies Active Allergy Reactions Criticality Noted Date Comments Amoxicillin 09/26/2000 hives Gentamicin Sulfate Other (Please comment) High 12/29/2008 Itchy eyes Morphine And Codeine 11/10/1999 hydrocodone,itching Percocet 10/03/2002 Itch Tetanus Toxoid 09/25/2002 arm swollen,painful,fing ers numb Tramadol Hcl 09/26/2000 hives documented as of this encounter (statuses as of 01/11/2024) Medications Medication Sig Dispensed Refills Start Date End Date Status Multiple Vitamins-Minerals (MULTIVITAMIN ADULT) CHEW Take by mouth. Active Calcium Carbonate-Vitamin D 500-125 MG-UNIT Oral Tablet Take by mouth. Active Fluticasone-[place]met[place] rol 250-50 MCG/ACT Inhalation Aerosol [...] MOUTH EVERY MORNING 90 Tablet 3 07/18/2023 07/17/2024 Active Diclofenac Sodium 1 % External Gel (Voltaren)Indicatio ns:Pain in both feet,Right wrist pain Apply topically to affected area 2 times a day. Apply to right wrist and feet twice daily as needed. 100 g 1 10/05/2023 Active Hospital, Clinic, or Other Facility Administered Medication Ordered Dose Route Frequency Start Date End Date Status albuterol sulfate (PROVENTIL) (2.5 MG/3ML) 0.083% inhalation solution 2.5 mgIndications:COPD, moderate (HCC) 2.5 mg NEBULIZER Q4H PRN 04/19/2017 Active vitamin b-12 (Cyanocobalamin) inj 1,000 mcgIndications:S/P gastric bypass 1000 mcg IM [id number] 05/11/2022 02/12/2025 Active documented as of this encounter (statuses as of 01/11/2024) Active Problems Problem Noted Date Diagnosed Date [...] 12/29/2008 Intestinal postoperative nonabsorption 7 BLACKMAN RESEARCH OTHER*[id number] 10/29/2006 Acquired hypothyroidism 01/19/2004 GENERAL OSTEOARTHROSIS Vitamin D deficiency Ventral hernia without obstruction or gangrene documented as of this encounter (statuses as of 01/11/2024) Resolved Problems Problem Noted Date Diagnosed Date [...] 08/10/19 19 Coronary artery disease invo lving [place] coronary artery of [place] heart without angina pectoris 10/09/2017 08/09/2018 CKD [...] cramp, nocturnal 12/24/201203/22 Small bowel obstruction 03/06/2012 11/0 10/2011 Thoracic degenerative disc disease 02/29/2012 04/11/2017 Major [...] as of this encounter (statuses as of 01/11/2024) Immunizations Name Administration Dates Next Due COVID-19 [...] lent, No Preserve, IM 02/09/2016,03/04/2015 Seasonal Influenza, Split, I IV3, With Preserve, Inj 03/04/2013,02/07/2012,02/06/2011,03/21,02/24/2009,04/02/2008,04/02/2007 ,05/16/2006 Seasonal Influenza, Trivalen t, Adjuvanted, 65+ yrs 02/21/2019 TD - Tetanus/Diptheria (ADULT) 09/25/2002 documented [...] encounter Miscellaneous Notes * Telephone Encounter - Lila Hernandez OSA - 10/12/2023 3:07 PM EDT No Appointments Available Left thigh pain radiating up to buttock Patient declined appointments?: No What Visit Type is needed? Acute If Acute Visit Type is needed, were surrounding clinics offered to patient (Yes/No)? N/A Was patient offered appointments with other available providers (Yes/No)? N/A See Call Details? (Yes or No): No documented in this encounter Plan of Treatment Upcoming Encounters Date Type Department Care Team (Late st Contact Info) Description 02/14/2024 1:00 PM EDT Nurse Only Ancillary [address] [place] [address] Nurse [place] [address] [place] [address] 04/15/2024 2:30 PM EST Office Visit Family Medicine [address] [place] [phone] Chantel Girard [address] [place] [address] 06/24/2024 1:00 PM EST Nurse Only Ancillary [address] [place] [address] [employer], [facility] [address] [place] [address] [place] [address] Health Maintenance Due Date Last Done Comments Zoster Vaccines (1 of 2) 1996 COVID-19 Vaccine ( season) 2023 05/16/2022, 06/14/2021, 11/03/2020, Additional history exists Influenza Vaccine (FLU shot) (#1) 2024 02/20/2023, 02/20/2023, 02/17/2022, Additional history exists GFR 01/30/2024 01/29/2023, 02/18, 02/17/2022, Additional history exists TSH 02/21/2024 02/20/2023, 01/21, 11/30/2020, Additional history exists Depression Monitoring 06/21/2024 06/21/2023 Adult Wellness Visit 06/22/2024 06/22/2023, 02/01/20 23 Albumin/Creatinine Ratio 10/09/2026 024, 11/30/2020, 11/28/2007, [...] this encounter Medical Devices Implanted Type Area Python Developer Device Identifier Shelf Expiration Date Model / Serial / Lot Clip Quick 2.8mm 230cm - [id number] Implanted:Qty: 1 on 04/26/2021 by Alexx Avalos MD at [facility]OSCOPY [facility] [employer] 09/18/2023 [id number]-[id number] / [id number] documented [...] 8:09 AM 04/25/2007 8:13 PM Care Teams Grass Farmer Relationship Specialty Start Date End Date Chantel Girard DO [address] [place] [address] [place] [address] PCP - General Internal Medicine 04/08/21 documented as of this encounter
[2024-05-30] MEDS: FLUTICASONE/VILANTEROL 100/25MCG 14 PUFFS/INHALER INH SCH (09:34)
[2024-05-30] MEDS: HEPARIN SOD 5,000 UNIT/0.5 ML VIAL SQ SCH (09:35)
--- NOTE | 2024-05-30 11:26 | Hospitalist Progress Note ---
Date of Service May 30, 2024 Assessment & Plan Admission and Anticipated Discharge Date Admission Date: May 29, 2024 Results & Data Results & Data Vital Signs (Past 12 Hours) Vital Signs Temp Pulse Pulse Resp BP BP Pulse Ox 05/30/24 10:59 84 16 93 05/30/24 07:03 60 05/30/24 07:01 05/30/24 07:01 37.0 C 67 24 105/62 95 05/30/24 06:57 64 14 97 05/30/24 05:10 36.9 C 05/30/24 05:00 81 20 108/56 L 92 05/30/24 04:00 78 20 108/42 L 95 05/30/24 03:13 72 13 98 05/30/24 03:00 74 20 107/53 L 93 05/30/24 01:00 89 18 115/63 94 05/30/24 00:01 87 20 133/64 93 O2 Del Method FiO2 05/30/24 10:59 Room Air 05/30/24 07:03 05/30/24 07:01 Room Air 05/30/24 07:01 Room Air 05/30/24 06:57 Room Air 21 05/30/24 05:10 05/30/24 05:00 Room Air 05/30/24 04:00 Room Air 05/30/24 03:13 Room Air 05/30/24 03:00 Room Air 05/30/24 01:00 Room Air 05/30/24 00:01 Room Air
[2024-05-30] MEDS: ACETAMINOPHEN 1,000 MG/100 ML VIAL IV STA (11:33)
[2024-05-30] MEDS: ACETAMINOPHEN 500 MG TAB PO PRN (11:58)
--- NOTE | 2024-05-30 14:46 | Pulmonary Consultation ---
Date of Consultation May 30, 2024 Assessment & Plan (1) Wheezing: Plan Impression: 78-year-old female with reported prior history of asthma although pulmonary function test performed 5 years ago were normal presents now with wheezing unresponsive to outpatient prednisone. She is now symptomatically better. It is unclear if she has asthma or not. Recommendations: 1. Wheezing: Unclear etiology. Unclear if the patient has asthma or not. Alternatives on the differential would include vocal cord dysfunction, tracheobronchial malacia, and bronchiolitis. Nevertheless the patient symptoms have resolved and she is asymptomatic and back to normal breathing on room air. She appears appropriate for discharge. She can continue her Advair and Spiriva in the outpatient setting and follow-up with her outpatient providers through the [facility] system. Based on current data, I am not sure that she needs additional steroids and she failed prednisone in the outpatient setting however if the admitting service feels they want to send her on steroids, would do 20 mg of prednisone for 2 to 3 days. 2. If the patient were to have continued respiratory issues, continued evaluation including repeat pulmonary function test and assessment of exhaled nitric oxide might be appropriate. 3. Exercise and weight loss were recommended. Pulmonary will sign off. Feel free to contact us with questions or concerns. History of Present Illness Attending Physician: Sharla Holley MD History of Present Illness Asked by hospitalist to assist in evaluation management of this patient with possible asthma exacerbation. History is obtained from discussion with patient review of the electronic medical record. The patient is a 78-year-old obese non-smoking female who states she was diagnosed with asthma decades ago. No clinical notes to support this diagnosis are available however in the outpatient setting she has been maintained on Advair and Spiriva. She is unclear how this diagnosis was made however her pulmonary function testing performed in March 2020 was normal. She presented to the emergency room with complaints of wheezing unresponsive to prednisone in the outpatient setting. She received Solu-Medrol and nebulized bronchodilators in the emergency room as she was suffering from an upper respiratory infection. Her symptoms have resolved and she states she is waiting for someone to tell her that she can go home. Pulmonary was consulted for additional evaluation. The patient denies any eczema. No history of sinus polyps. No family history of asthma that she is aware of. She does report wheezing and does achieve some symptomatic benefit associated with inhalers. Allergies Allergy/AdvReac Type Severity Reaction Status Date / Time codeine Allergy Mild Itching Verified 05/29/24 23:21 oxycodone Allergy Mild Itching Verified 05/29/24 23:21 Penicillins Allergy Mild Itching Verified 05/29/24 23:21 tetanus toxoid, adsorbed Allergy Mild Itching Verified 05/29/24 23:21 tramadol Allergy Mild Itching Verified 05/29/24 23:21 SYMPATHOMIMADR Allergy Mild Swelling Uncoded 05/29/24 23:21 of the Eye Home Medications Medication Instructions Recorded Confirmed Type albuterol sulfate 2.5 mg/3 mL 2.5 mg (3 mL) inhalation Q4 PRN 08/02/18 05/29/24 Rx (0.083 %) solution for nebulization shortness of breath or wheezing #90 mL citalopram 20 mg tablet 20 mg PO DAILY 08/02/18 05/29/24 History levothyroxine 88 mcg tablet 88 mcg PO QAM 08/02/18 05/29/24 History losartan 50 mg tablet 50 mg PO DAILY 05/29/24 05/29/24 History spironolactone 25 mg tablet 25 mg PO DAILY 05/29/24 05/29/24 History tiotropium bromide 18 mcg capsule 1 cap inhalation BID 05/29/24 05/29/24 History with inhalation device (Spiriva with HandiHaler) Patient History Medical History (Updated 05/30/24 @ 14:44 by Tyrone Handy MD) Asthma Surgical History (Updated 05/29/24 @ 21:13 by Toña Adair MD) History of cardiac catheterization Family History (Updated 08/02/18 @ 14:07 by Darron Lei) Other Family history non-contributory Social History Smoking Status: Never smoker Hx Alcohol Use: Yes Alcohol type: beer Hx Substance Use: No Preferred Language: Korean Communication Ability: Effective Turkey Roll Maker Required: No Beliefs That Will Affect Care: None Current Living Situation: Spouse Other Information That Helps Us Care for You: No Feels Safe at Home: Yes Safety Concerns: Feels Safe At This Time Assistive Devices: Denture - Upper, Denture - Lower and Glasses Review of Systems Review of Systems: Please refer to admission H&P. No additions or deletions Physical Exam Constitutional: WD/WN, vitals as above + obese Neck: trachea midline, no thyromegaly Respiratory: normal respiratory effort, lungs clear to auscultation Cardiovascular: RRR, no murmur, no edema Gastrointestinal (Abdomen): normal bowel sounds, soft, nontender, no hepatosplenomegaly Musculoskeletal: Extremities: extremities normal to inspection Skin: no rashes, warm and dry Neurologic: Nonfocal exam Lymphatic: no cervical lymphadenopathy Results & Data Results & Data Vital Signs (Past 12 Hours) Vital Signs Temp Pulse Pulse Resp BP BP Pulse Ox 05/30/24 14:29 93 H 12 94 05/30/24 11:35 36.8 C 92 H 18 142/76 H 96 05/30/24 10:59 84 16 93 05/30/24 07:03 60 05/30/24 07:01 05/30/24 07:01 37.0 C 67 24 105/62 95 05/30/24 06:57 64 14 97 05/30/24 05:10 36.9 C 05/30/24 05:00 81 20 108/56 L 92 05/30/24 04:00 78 20 108/42 L 95 05/30/24 03:13 72 13 98 05/30/24 03:00 74 20 107/53 L 93 O2 Del Method FiO2 05/30/24 14:29 Room Air 21 05/30/24 11:35 Room Air 05/30/24 10:59 Room Air 05/30/24 07:03 05/30/24 07:01 Room Air 05/30/24 07:01 Room Air 05/30/24 06:57 Room Air 21 05/30/24 05:10 05/30/24 05:00 Room Air 05/30/24 04:00 Room Air 05/30/24 03:13 Room Air 05/30/24 03:00 Room Air Critical Care Results & Data Vital Signs (Past 12 Hours) Vital Signs Temp Pulse Pulse Resp BP BP Pulse Ox 05/30/24 14:29 93 H 12 94 05/30/24 11:35 36.8 C 92 H 18 142/76 H 96 05/30/24 10:59 84 16 93 05/30/24 07:03 60 05/30/24 07:01 05/30/24 07:01 37.0 C 67 24 105/62 95 05/30/24 06:57 64 14 97 05/30/24 05:10 36.9 C 05/30/24 05:00 81 20 108/56 L 92 05/30/24 04:00 78 20 108/42 L 95 05/30/24 03:13 72 13 98 05/30/24 03:00 74 20 107/53 L 93 O2 Del Method FiO2 05/30/24 14:29 Room Air 21 05/30/24 11:35 Room Air 05/30/24 10:59 Room Air 05/30/24 07:03 05/30/24 07:01 Room Air 05/30/24 07:01 Room Air 05/30/24 06:57 Room Air 21 05/30/24 05:10 05/30/24 05:00 Room Air 05/30/24 04:00 Room Air 05/30/24 03:13 Room Air 05/30/24 03:00 Room Air Lab & Micro Results (Past 24 Hours) RBC 4.58 M/uL (4.20-5.40) 05/30/24 WBC 9.29 K/ul (4.8-10.8) 05/30/24 Hgb 14.4 g/dl (12.0-16.0) 05/30/24 Hct 43.1 % (37.0-47.0) 05/30/24 MCV 94.1 fL (80.0-100.0) 05/30/24 MCH 31.4 pg (25.0-34.0) 05/30/24 MCHC 33.4 g/dL (32.0-36.0) 05/30/24 RDW Standard Deviation 43.7 fL (36.4-46.3) 05/30/24 RDW Coefficient of Variation 12.7 % (11.5-14.5) 05/30/24 Plt Count 249 K/uL (130-400) 05/30/24 MPV 9.9 fL (9.4-12.4) 05/30/24 Neutrophils (%) (Auto) 88.7 % 05/30/24 Lymphocytes (%) (Auto) 7.8 % 05/30/24 Monocytes # (Auto) 0.15 K/uL (0.11-0.59) 05/30/24 Eosinophils # (Auto) 0.00 K/uL (0.00-0.50) 05/30/24 Immature Granulocyte % (Auto) 1.7 % 05/30/24 Neutrophils # (Auto) 8.24 K/uL (1.40-6.50) H 05/30/24 Lymphocytes # (Auto) 0.72 K/uL (1.20-3.40) L 05/30/24 Monocytes # (Auto) 0.15 K/uL (0.11-0.59) 05/30/24 Eosinophils # (Auto) 0.00 K/uL (0.00-0.50) 05/30/24 Basophils # (Auto) 0.02 K/uL (0.00-0.20) 05/30/24 Immature Granulocyte # (Auto) 0.16 K/uL (0.01-0.20) 5 Na 134 mmol/L (136-145) L 05/30/24 K 4.8 mmol/L (3.5-5.1) 05/30/24 Cl 101 mmol/L (98-107) 05/30/24 CO2 22 mmol/L (21-32) 05/30/24 Anion Gap 11 (3-11) 05/30/24 BUN 27 mg/dl (6-23) H 05/30/24 Creatinine 1.02 mg/dl (0.6-1.2) 05/30/24 BUN/Creatinine Ratio 26.5 (10-20) H 05/30/24 Glu 194 mg/dl (70-99(Fasting)) H 05/30/24 Ca 9.3 mg/dl (8.6-10.3) 05/30/24 Total Bilirubin 0.6 mg/dl (0.2-1.0) 05/29/24 AST 132 U/L (13-39) H 05/29/24 ALT 63 U/L (7-52) H 05/29/24 Alkaline Phosphatase 88 U/L (34-104) 05/29/24 TP 7.6 gm/dl (6.0-8.3) 05/29/24 Albumin 4.3 gm/dl (3.4-5.0) 05/29/24 Globulin 3.3 gm/dl (2.5-4.0) 05/29/24 Albumin/Globulin Ratio 1.3 (0.9-2) 05/29/24 Mg 2.1 mg/dl (1.7-2.4) 05/30/24 04:09 Calcium Level 9.3 mg/dl (8.6-10.3) 05/30/24 04:09 Prothromb Time International Ratio 0.9 (0.9-1.1) 05/29/24 19:1 5 Diagnostic Findings (Past 24 Hours) Chest X-Ray 05/29/24 19:03 Exam(s): XR CXR 1 VIEW EXAM: XR Chest, 1 View CLINICAL HISTORY: Reason for exam: Chest pain, nonspecific. TECHNIQUE: Frontal view of the chest. COMPARISON: No relevant prior studies available. FINDINGS: Lungs: Mild soft tissue artifact over the mid to lower lungs. No focal infiltrate or consolidation is identified. Pleural space: Unremarkable. No pneumothorax. Heart: Unremarkable. No cardiomegaly. Mediastinum: Unremarkable. Normal mediastinal contour. Bones/joints: Mild degenerative changes in the lower thoracic spine. No acute fracture. Upper abdomen: There is no pneumoperitoneum under the diaphragm. IMPRESSION: Mild soft tissue artifact over the mid to lower lungs. No focal infiltrate or consolidation is identified. Electronically signed by: Luis Antonio Burger MD 05/29/24 20:27 PM I & O Totals 24 Hours 05/29/24 05/30/24 05/31/24 06:59 06:59 06:59 Intake Total 100 / 100 Balance 100 / 100 Cumulative 05/29/24 18:58 thru 05/30/24 13:13 Intake Total 100 Balance 100 RT Ventilator Mngmt (Last Documented) Ventilator Ordered Settings Respiratory Rate 12 05/30/24 14:29 Fraction of Inspired Oxygen 21 05/30/24 14:29 Ventilator - PT Measurements Respiratory Rate 12 PG Care Time/CCT Total # of Minutes Spent Total Time Spent with Patient: Total time spent is greater than 50% in coordination of care (as documented) at patient's floor/unit and/or counseling patient: Coding Level of Care Code 14633 INT INP/OBS CARE 2/55MIN Diagnoses Wheezing R06.2
--- NOTE | 2024-05-30 15:19 | Discharge Summary ---
Discharge Summary Date of Service May 30, 2024 Principal Dx & Hospital Course #1 = Principal Diagnosis (1) Wheezing: (2) H/O gastric bypass: Plan Pt is a 78yoF with PMHx significant for Hx of gastric bypass, questionable asthm a, hypothyroidism who presented with concern for wheezing on exam with shortness of breath and a possible asthma exacerbation. Chest x-ray without any acute findings. On arrival in the ED, patient was treated for presumed asthma exacerbation with Solu-Medrol given with pantoprazole and famotidine for GI prophylaxis in the setting of a history of gastric bypass. She was evaluated by pulmonology who recommended or stated the following, per Dr. Handy: "Recommendations: 1. Wheezing: Unclear etiology. Unclear if the patient has asthma or not. Alternatives on the differential would include vocal cord dysfunction, tracheobronchial malacia, and bronchiolitis. Nevertheless the patient symptoms have resolved and she is asymptomatic and back to normal breathing on room air. She appears appropriate for discharge. She can continue her Advair and Spiriva in the outpatient setting and follow-up with her outpatient providers through the [facility] system. Based on current data, I am not sure that she needs additional steroids and she failed prednisone in the outpatient setting however if the admitting service feels they want to send her on steroids, would do 20 mg of prednisone for 2 to 3 days. 2. If the patient were to have continued respiratory issues, continued evaluation including repeat pulmonary function test and assessment of exhaled nitric oxide might be appropriate. 3. Exercise and weight loss were recommended." On the day of discharge, patient was stable on room air. Her breath sounds were clear without signs of wheezing. She was discharged with p.o. prednisone 20 mg for an additional 3 days along with pantoprazole 40 mg twice a day for GI prophylaxis in the setting of a history of gastric bypass and advised to continue with her home Advair and Spiriva inhalers per the recommendations of pulmonology. Please ensure close follow-up with pulmonology after discharge, consider repeat pulmonary function testing. Notes For Next Care Provider please ensure pulmonology follow-up for repeat PFTs Medication Changes From Visit pantoprazole 40 mg twice daily Prednisone 20 mg daily for 3 additional days per recs of pulmonology Admission HPI Per Admitting Provider She is a 78-year-old female with significant past medical history of asthma, h ypothyroidism and remote history of gastric bypass apparently has been suffering from cough with occasional shortness of breath since . Her cough and wheezing was not getting any better and she took prednisone 20 mg daily for 5 days of her own without much improvement. She finished her prednisone last Sunday. Today after lunch she got some epigastric pain that went to the back and was not relieved with antacid. She did have some sweating but no radiation of pain, no palpitation, no shortness of breath more than usual from asthma and did not have any dizziness and/or numbness or tingling involving the extremities. She went to the urgent care in [place] and from there she was sent into the hospital for ongoing management. Admission Exam Per Admitting Provider Physical Exam: Lying in bed with minimal shortness of breath Constitutional: well developed, well nourished and + ill appearing Eyes: PERRL, conjunctivae normal, anicteric sclerae ENMT: external ear and nose normal, oropharynx normal Neck: trachea midline, no thyromegaly Respiratory: no respiratory distress Auscultation: + diminished lung sounds and + wheezes (Occasional wheezing bilaterally) Cardiovascular: Rate/Rhythm: regular rate and regular rhythm; not tachycardic Heart Sounds: normal S1 and normal S2; no murmur Extremities: no edema Gastrointestinal (Abdomen): Inspection/Auscultation: normal bowel sounds; abdomen not distended Percussion/Palpation: + abdomen tender (Minimal tenderness in the epigastrium) and abdomen soft Musculoskeletal: No acute arthritis involving any of the joint Neurologic: normal touch/pain/proprioception and moves all extremities; no focal motor deficits Psychiatric: A+Ox3, euthymic affect Lymphatic: no cervical or axillary lymphadenopathy Discharge Exam General: Alert, oriented. No acute distress Skin: No noted rashes or bruises Psych: Appropriate mood and affect Neuro: No gross deficits HEENT: NC/AT CV: RRR Resp: Breath sounds clear bilaterally, no increased effort of breathing Abdomen: Soft, nontender Extremities: No edema in lower extremities bilaterally. Updated Medication List Medication Instructions Recorded Confirmed Type albuterol sulfate 2.5 mg/3 mL 2.5 mg (3 mL) inhalation Q4 PRN 08/02/18 05/29/24 Rx (0.083 %) solution for nebulization shortness of breath or wheezing #90 mL citalopram 20 mg tablet 20 mg PO DAILY 08/02/18 05/29/24 History levothyroxine 88 mcg tablet 88 mcg PO QAM 08/02/18 05/29/24 History losartan 50 mg tablet 50 mg PO DAILY 05/29/24 05/29/24 History spironolactone 25 mg tablet 25 mg PO DAILY 05/29/24 05/29/24 History tiotropium bromide 18 mcg capsule 1 cap inhalation BID 05/29/24 05/29/24 History with inhalation device (Spiriva with HandiHaler) pantoprazole 40 mg tablet,delayed 40 mg PO BID #60 tabs 05/30/24 Rx release prednisone 20 mg tablet 20 mg PO DAILY #3 tabs 05/30/24 Rx Hospital Stay Data Consultations 05/29/24 20:34 ED Decision to Admit Stat 05/30/24 11:25 Consult Pulmonology Routine Diagnostic Imagining Performed Chest X-Ray 05/29/24 19:03 Exam(s): XR CXR 1 VIEW EXAM: XR Chest, 1 View CLINICAL HISTORY: Reason for exam: Chest pain, nonspecific. TECHNIQUE: Frontal view of the chest. COMPARISON: No relevant prior studies available. FINDINGS: Lungs: Mild soft tissue artifact over the mid to lower lungs. No focal infiltrate or consolidation is identified. Pleural space: Unremarkable. No pneumothorax. Heart: Unremarkable. No cardiomegaly. Mediastinum: Unremarkable. Normal mediastinal contour. Bones/joints: Mild degenerative changes in the lower thoracic spine. No acute fracture. Upper abdomen: There is no pneumoperitoneum under the diaphragm. IMPRESSION: Mild soft tissue artifact over the mid to lower lungs. No focal infiltrate or consolidation is identified. Electronically signed by: Luis Antonio Burger MD 05/29/24 20:27 PM Discharge Instructions Given to Patient (Per Discharging Provider) Mira, You were admitted and treated for wheezing. Your symptoms have since improved. You were seen by the final coat sprayer who does not believe that you have an asthma diagnosis based on pulmonary function testing that you had done in 2019. He does recommend that you have additional testing completed as an outpatient for further evaluation. Your primary care provider can help you get that arranged. He advises that you continue with your home inhalers (spiriva and Advair) and a short course of prednisone 20 mg for an additional 3 days. Please take it with pantoprazole 40 mg twice a day in the setting of your history of bypass surgery. Please keep close follow up with your primary care provider after discharge. Please do not hesitate to come back to the emergency room if your symptoms wor sen or return. It was a pleasure taking care of you while you were here. Total Time Total Time Spent Total Time Spent (In Minutes): 60
--- NOTE | 2024-05-30 17:22 | Electrocardiogram Report ---
Test Reason : Blood Pressure : */* mmHG Vent. Rate : 71 BPM Atrial Rate : 71 BPM P-R Int : 132 ms QRS Dur : 76 ms QT Int : 388 ms P-R-T Axes : 95 23 22 degrees QTcB Int : 421 ms Sinus rhythm with Premature atrial complexes Low voltage QRS Nonspecific ST and T wave abnormality Abnormal ECG No previous ECGs available Confirmed by Marino Rodrigues ([id number]) on 05/30/2024 5:21:54 PM Referred By: REFERRED SELF Confirmed By: Marino Rodrigues
--- NOTE | 2024-05-30 17:24 | Electrocardiogram Report ---
Test Reason : Blood Pressure : */* mmHG Vent. Rate : 68 BPM Atrial Rate : 68 BPM P-R Int : 138 ms QRS Dur : 80 ms QT Int : 416 ms P-R-T Axes : 43 7 -26 degrees QTcB Int : 442 ms Sinus rhythm with Premature atrial complexes Possible Anterior infarct , age undetermined Abnormal ECG When compared with ECG of 29-May-2024 19:07, (unconfirmed) No significant change was found Confirmed by Marino Rodrigues ([id number]) on 05/30/2024 5:24:40 PM Referred By: REFERRED SELF Confirmed By: Marino Rodrigues
== END 2024-05-30 15:30 | disposition home or self-care (01) | DRG 203 ==
LOC: ED 18:58 → EDINP 21:01